=== PATIENT | female | born 1970 | race Hispanic/Latino ===

== ENCOUNTER 2025-03-11 20:41 | Inpatient (IN) | payer BC, SELFPAY ==
[~2025-03-11] VITALS: Ht 165.1 cm; Wt 98.4 kg
[2025-03-11 21:57] LABS: BASOPHILS # (AUTO) 0.03 K/uL (0.00-0.20); BASOPHILS % (AUTO) 0.2 % (0.0-5.0); HEMATOCRIT 43.6 % (36-48); IMMATURE GRANULOCYTE ABSOLUTE 0.08 K/uL (0-1); LYMPHOCYTES # (AUTO) 0.7 K/uL (1.0-4.8); LYMPHOCYTES % (AUTO) 4.3 % (21.0-51.0); MEAN CORPUSCULAR HEMOGLOBIN 29.3 pg (27.0-33.0); MEAN CORPUSCULAR HGB CONC 34.9 g/dL (32.0-36.0); MONOCYTES # (AUTO) 0.6 K/uL (0.1-1.0); MONOCYTES % (AUTO) 3.9 % (3.0-13.0); NEUTROPHILS # (AUTO) 14.7 K/uL (1.8-7.7); NEUTROPHILS % (AUTO) 91.1 % (40.0-77.0); PLATELET COUNT (AUTO) 323 K/uL (130-400); RED BLOOD CELL COUNT(AUTO) 5.19 MIL/uL (4.00-5.50); RED CELL DISTRIBUTION WIDTH 13.2 % (11.0-15.5); WHITE BLOOD COUNT (AUTO) 16.1 K/uL (4.8-10.8)
[2025-03-11 22:06] LABS: APPEARANCE,URINE TURBID (CLEAR); BILIRUBIN,URINE NEGATIVE (NEGATIVE); COLOR,URINE YELLOW (YELLOW); GLUCOSE, URINE (UA) 50 mg/dL (NEGATIVE); KETONES,URINE 5 mg/dL (NEGATIVE); LEUKOCYTE ESTERASE ,URINE 500 Leu/uL (NEGATIVE); NITRATE,URINE NEGATIVE (NEGATIVE); OCCULT BLOOD,URINE LARGE (NEGATIVE); PH,URINE 5.5 (5.0-8.0); PROTEIN,URINE 100 mg/dL (NEGATIVE)
[2025-03-11 22:08] LABS: ADD UA MICROSCOPIC YES
[2025-03-11 22:10] LABS: HCG,QUALITATIVE URINE NEGATIVE (NEGATIVE); MUCUS,URINE RARE LPF (None Seen); NON-SQUAMOUS EPITHELIAL CELL 1 /HPF (0-2); RBC,URINE 51-100 /HPF (0-1); SQUAMOUS EPITHELIAL CELL,UR MOD /HPF (0-2); WBC CLUMP MANY /HPF (0-1); WBC,URINE TNTC /HPF (0-1); YEAST,URINE BUDDING FEW /HPF (None Seen)
[2025-03-11 22:13] LABS: BILIRUBIN,TOTAL 0.8 mg/dL (0.2-1.0); TOTAL PROTEIN, SERUM 6.7 g/dL (6.0-8.3)
[2025-03-11 22:14] LABS: AMPHET/METH SCREEN,URINE NEGATIVE (NEGATIVE); BARBITURATE SCREEN, URINE NEGATIVE (NEGATIVE); BENZODIAZEPINES SCREEN,URINE NEGATIVE (NEGATIVE); CANNABINOID SCREEN,URINE NEGATIVE (NEGATIVE); COCAINE SCREEN,URINE NEGATIVE (NEGATIVE); OPIATE SCREEN,URINE NEGATIVE (NEGATIVE); PHENCYCLIDINE SCREEN,URINE NEGATIVE (NEGATIVE)
[2025-03-11 22:15] LABS: AMMONIA < 10 umol/L (11-32); CREATINE KINASE, TOTAL 129 U/L (21-232)
[2025-03-11 22:25] LABS: ABG BASE EXCESS 4.7 mmol/L (-2.0-3.0); ABG HCO3 28.8 mmol/L (21.0-28.0); ABG OXYGEN SATURATION 94.5 % (94.0-98.0); ABG PCO2 41 mmHg (32-45); ABG PH 7.466 (7.350-7.450); DEVICE COMMENT LR RN; VENT MODE, BG 4LNC (ROOM AIR)
[2025-03-11] MEDS: 0.9%NACL 1000ML 1,000 ML IV ONE (22:25)
[2025-03-11] MEDS: ondanSETRON 4MG INJ IVP ONE (22:25)
[2025-03-11] MEDS: cefTRIAXone 1G VIAL IVPB ONE (22:26)
[2025-03-11 22:28] LABS: ALCOHOL, BLOOD < 3 mg/dL (0-10)
--- NOTE | 2025-03-11 22:30 | NUR ---
STEMI ACTIVATED @2213, PENDING MIDLEVEL AND MD ORDERS
--- NOTE | 2025-03-11 22:30 | NUR ---
ER PHYSICIAN HAS SPOKEN TO DR CARLTON, SOLID WASTE COLLECTION WORKER ACTIVATED, PENDING ORDERS FOR MEDS
[2025-03-11 22:32] LABS: POTASSIUM 2.4 mmol/L (3.5-5.1)
[2025-03-11] MEDS: ASPIRIN 325MG TAB PO ONE (22:34)
--- NOTE | 2025-03-11 22:36 | NUR ---
DR. GOMEZ AT BEDSIDE
--- NOTE | 2025-03-11 22:39 | NUR ---
VERBAL ORDERS BY DR GOMEZ FOR HEPARIN 10,000 UNITS IV PUSH
[2025-03-11] MEDS: HEParin 5,000 UNIT VIAL ONE (22:43)
[2025-03-11 22:49] LABS: COVID19 (SARS ANTIGEN RAPID) PRESUMPTIVE NEGATIVE (NEGATIVE); INFLUENZA TYPE A Negative For Type A (NEGATIVE); INFLUENZA TYPE B Negative For Type B (NEGATIVE)
--- NOTE | 2025-03-11 22:49 | CONS ---
[facility] Cardiology Consultation Note CARDIOLOGY CONSULTATION MARCH 11, 2025 Chief complaint: This is a 54-year-old female who presents with lower abdominal pain and chest pains and is found to have evidence for an anterior ST-elevation NV on her EKG with1 mm ST-elevation in V5 V6 with reciprocal ST depressions in the inferior leads. Onset earlier this evening. History of present illness: The patient has been having some intermittent chest pains over the past two weeks. She did not seek any medical attention for this until this evening when she developed a lower abdominal pain and decided to come to the emergency room. Electrocardiogram as described above troponin pending. Past medical history: She has a history of hypertension and diabetes mellitus type 2. Review of systems: No syncope PND orthopnea palpitations or pedal edema. No fevers sweats or chills. No hemoptysis hematemesis or melena. Allergies: No known allergies Medications: She takes metformin and lisinopril Surgical history: Social history: She is a smoker quit one year ago Family history: Mother and brother both have hypertension Physical exam: Blood pressure is 170/90 heart rate is 110 and the patient is afebrile prior but did have a fever of 99.0 on admission. There was no elevation of the jugular venous pressure no bruits S1 normal S2 physiologically split. No murmur appreciable. Lungs reveal bibasilar rales. Abdomen is obese soft and nontender. Extremities show no edema. Dorsalis pedis pulses are 2+ bilaterally. Posterior tibial pulses plus one bilaterally. Laboratory studies: White count 28712 hemoglobin platelet count [id number]. Potassium 2.4 BUN 19 creatinine 2.0 estimated GFR of 30. Initial form of 49. Chest x-ray: This demonstrates bilateral pulmonary infiltrates consistent with CHF. There was no pneumothorax. Heart size is obscured. Her inspiratory effort. Assessment: 1. Acute anterior wall ST-elevation myocardial infarction complicated by acute heart failure 2. Lower abdominal pain 3. Acute kidney injury with a creatinine of 2.0 and estimated GFR of 30 3. Hypokalemia 4. Hypertension 5. Diabetes mellitus type 6. Low-grade fever and leukocytosis Plan: I have discussed findings with the patient and family. Given evidence for an ST elevation NV have recommended emergent left heart catheterization. Potential nephrotoxicity in the setting of acute kidney injury has been reviewed. We will administer potassium both orally and IV. We are a dministering heparin [id number] units she weighs about 220 lb. [id number] has been given and STEMI code has been activated. LC GOMEZ MD Mar 11, 2025 22:49
[2025-03-11] MEDS: PoTASSium chloRIDE 20MEQ/100ML 100 ML IV ONE ×2 (22:50→23:13)
[2025-03-11] MEDS: PoTASSium chloRIDE 20MEQ ER 20 MEQ ERTAB PO ONE ×2 (22:50→23:14)
[2025-03-11] MEDS ORDERED: LIDOCAINE HCL 400MG/20ML VIAL ONE (22:52)
[2025-03-11] MEDS ORDERED: IOHEXOL 350 MG/ML 100ML INFUS..BTL IV ONE (22:52)
[2025-03-11] MEDS ORDERED: HEParin-NS 1,000 UNIT/500 ML 1,000 ML IV ONE (22:52)
[2025-03-11] MEDS ORDERED: HEParin 10,000 UNIT/10ML (1,000 UNIT/ML) VIAL ONE (22:52)
[2025-03-11] MEDS: HEParin 5,000 UNIT VIAL IV ONE (22:53)
[2025-03-11] MEDS ORDERED: HEParin 1,000 UNIT VIAL IVP SCH (23:00)
[2025-03-11] MEDS ORDERED: PoTASSium chloRIDE 10MEQ/100ML 100 ML IV ONE (23:00)
[2025-03-11 23:02] LABS: INR 1.25 (0.85-1.15)
--- NOTE | 2025-03-11 23:03 | NUR ---
REPORT GIVEN TO JOSHUA ENRIQUE FROM RADIOLOGIC TECH
[2025-03-11 23:04] LABS: PARTIAL THROMBOPLASTIN TIME 21.7 SEC (26.3-35.5)
--- NOTE | 2025-03-11 23:04 | NUR ---
PATIENT LEAVING WITH DECISION ANALYST TEAM AT THIS TIME
[2025-03-11] MEDS ORDERED: FENTanyl CITRate PF 50 MCG/1 ML 2ML VIAL ONE (23:11)
[2025-03-11] MEDS ORDERED: MIDAZOLAM HCL 1 MG/ML 2ML VIAL ONE (23:11)
[2025-03-11] MEDS ORDERED: hydrALAZine 20MG/ML VIAL ONE (23:25)
--- NOTE | 2025-03-11 23:47 | CONS ---
[facility] Cardiology Consultation Note This patient presented with abdominal pain and acute congestive heart failure. Electrocardiogram [address]-elevation in V5 V6 with ST depressions inferior ly consistent with a STEMI. She received aspirin and heparin. She also received potassium for hypokalemia and furosemide. After informed consent she was brought emergently to the catheterization laboratory. She was prepped and draped in the usual fashion. She received 2 mg of Versed for conscious sedation. She received 15 cc of 2% xylocaine in the right inguinal area. A six Nauruan sheath was introduced in the right femoral artery using modified Seldinger technique. A Rodolfo four left six Nauruan diagnostic catheter was advanced over guidewire to the aortic root. Wire was removed. The catheter could not be engaged into the left main coronary artery and the catheter was removed. A Rodolfo 3.56 Nauruan diagnostic catheter was then advanced over guidewire to the aortic root. Wire was removed and catheter engaged into the left main coronary artery. The left coronary artery was visualized multiple planes the catheter was removed. A Rodolfo four right six Nauruan diagnostic catheter was advanced over guidewire to the aortic root. Wire was removed and catheter engaged into the [place] right coronary artery. The right coronary art jordan was visualized multiple planes the catheter was removed. A sheathogram performed and Perclose device utilized to close the arteriotomy. The entire procedure was well tolerated. Findings: The right coronary artery is a right-dominant vessel free of obstruction gives rise to normal PDA and posterolateral branches. The left main coronary artery is free of obstruction. The left anterior descending artery is patent and free of obstruction but tapers to a 1 mm vessel towards the apex. First diagonal artery is free of obstruction. Circumflex system is free of obstruction and gives rise to two large obtuse marginal branching vessels which are free of obstruction. In summary normal coronary arteries no evidence for ST-elevation AL. Report dictated by Yoan GOMEZ,YOAN Ocampo MD Mar 11, 2025 23:47
[2025-03-12] VITALS (67 sets, daily range): BP systolic 79–175; BP diastolic 45–116; PULSE 64–121; RESP 14–38; TEMP 98.1–99.1; O2SAT 93–99
[2025-03-12] MEDS ORDERED: PoTASSium chl 10% ELIXIR 20MEQ 20 MEQ/15 ML UDCUP PO PRN
[2025-03-12] MEDS ORDERED: PoTASSium chloRIDE 20MEQ ER 20 MEQ ERTAB PO PRN
[2025-03-12] MEDS ORDERED: furoSEMIDE 40MG VIAL IV SCH
[2025-03-12] MEDS ORDERED: PoTASSium chloRIDE 10MEQ/100ML 100 ML IV PRN
--- NOTE | 2025-03-12 00:05 | HP ---
B[facility] HISTORY AND PHYSICAL Date of Service: Mar 12, 2025 Time of Service: 00:05 HISTORY OF PRESENT ILLNESS: This is a 54-year-old female with past medical history of hypertension, diabetes, depression and bipolar who presents to the ED for complaints of lower abdominal pain associated nausea ,vomiting, generalized body weakness and shortness of breaths which started three days ago.Patient also reports she fell a week ago and she was on her abdomen at the laundry mat and did not seek medical help and 2 days ago she fell again towards her left side hitting her left side face and left flank area due to body weakness.2 days ago patient star carlos complaining of left sided body pain,dizziness and started being confused and having slurry speech as per friend who was at bedside during my evaluation.Friend says she lives with patient.As per friend patient has been seen by a classifier operator in [place] Dr. Ramon Jimenez and an echocardiogram and a 24 hour holter monitor was done because patient has also been having on and off chest pain for 2 months now she said.Upon ER arrival an EKG was done and showed an ST elevation on V5 and V6 and ST depressions on Lead 2 3 and AVF consistent with STEMI and code STEMI was activated per ER and patient was taken to denture laboratory technician for a left heart catheterization per and findings revealed normal coronary arteries and no evidence of ST elevation UT and patient was transferred to ICU. Seen and examined patient in the ER awake,alert and coherent,with occasional forgetfulness.Patient moving all extremities equally and following commands. Latest vital signs temperature 97.3, heart rate 112, respiration 34, blood pres sure 144/95 saturation 96% on 6 L nasal cannula. Labs: WBC 16 with negative left shift of neutrophils 91, hemoglobin 15, hematocrit 43, platelet count 323 . Sodium 132, potassium 2.4, chloride 93, BUN 19, creatinine 2, GFR 30 glucose 165, total calcium 19, magnesium 1.2, AST 52 ammonia less than 10, troponin 49, BNP 28, albumin three, amylase 253, lipase 480. Urine toxicology negative serum alcohol less than three. Urinalysis consistent with urinary tract infection. ABG result revealed pH 7.46, CO2 41, PO2 68, bicarb 28 .8, base excess 4.7 taken at 4 L nasal cannula. Influenza type a and B negative SARs COVID negative. Chest x-ray, cervical CT spine, CT head, and chest CT chest abdomen and pelvis result still pending at this time. As per Dr. English classifier operator patient was given IV fluids and Lasix. While in the ER patient received aspirin 325 mg and heparin. We will admit patient in ICU for further medical management. REVIEW OF SYSTEMS CONSTITUTIONAL: Denies fevers, chills, or night sweats. No unintentional weight loss reported. NEUROLOGICAL: Positive generalized body weakness and dizziness Denies headache, amaurosis fugax, sensory deficit, gait abnormalities, or tremors. ENT: No hearing loss, otalgia, otorrhea, rhinitis, rhinorrhea, hoarseness, or sore throat. CARDIOVASCULAR: Complaints of chest pain and shortness of breaths Denies orthopnea, paroxysmal nocturnal dyspnea, palpitations, life-threatening arrhythmias, claudication. PULMONARY: Complaints of shortness of breaths Denies cough, phlegm/sputum, hemoptysis, pleuritic chest pain. SLEEP: Denies morning headaches, daytime somnolence or napping. Denies difficulty falling asleep, staying asleep, waking from sleep. Denies knowledge of snoring. GASTROINTESTINAL: Complaints of lower abdominal pain nausea vomiting Denies any type of dysphagia to either liquids or solids. Denies pyrosis, early satiety, diarrhea, constipation, or changes in stool consistency or caliber. Denies coffee-ground emesis, hematemesis, hematochezia, or melanotic stools. GENITOURINARY: Denies frequency, urgency, nocturia, hematuria or incontinence (Storage/Irritative symptoms.) Low urinary stream, straining to void, urinary intermittency or hesitancy, splitting of the voiding stream, terminal dribbling. ENDOCRINOLOGIC: Denies polyuria, polydipsia, polyphagia or heat/cold intolerances. HEMATOLOGIC: Denies thrombophilia/previous clots, or coagulopathy/bleeding disorders. ONCOLOGIC: Denies personal history of malignancy. DERMATOLOGIC: Denies rashes or pruritus. PSYCHIATRIC: Denies any suicidal or homicidal ideation. Denies hallucinations. PAST MEDICAL HISTORY: [ Hypertension, diabetes, depression and bipolar ] PAST SURGICAL HISTORY: [ x4 ] PAST SOCIAL HISTORY: [Patient lives with friend. Patient denies alcohol tobacco and recreational drug use states she used to smoke occasionally but quit a year ago ] FAMILY HISTORY: [Noncontributory ] Coded Allergies: No Known Drug Allergies (Verified Allergy, 04/06/13) PHYSICAL EXAM GENERAL APPEARANCE: The patient is awake, alert, and oriented, in no acute cardiopulmonary distress. NEUROLOGICAL: Cranial nerves II-XII grossly intact. Motor is 5/5 in bilateral upper and lower extremities proximal to distal. No sensory deficits. HEENT: Face is symmetric. Pupils are equal and reactive. Extraocular movements are intact. NECK: Supple. No JVD. No thyromegaly. No submental, submandibular, pre- /postauricular, occipital or supraclavicular lymphadenopathy. CHEST: Normal chest expansion. No Telemetry. LUNGS: Absence of any rales, rhonchi or any wheezing. CARDIOVASCULAR: Regular. S1 and S2 normal. No appreciable rubs, murmurs or gallops. ABDOMEN: Abdominal tenderness located around lower abdominal quadrant on palpation Soft and nondistended. There is no rebound, voluntary guarding, or rigidity. : Deferred. No Ortega. EXTREMITIES: Non-edematous and not cyanotic. No clubbing. Good capillary refill. SKIN: No skin breakdown. Vital Sign (Last 24 Hours) 03/11/25 22:54 Temp 97.3 Pulse 112 Resp 34 B/P (MAP) 144/95 Pulse Ox 96 O2 Delivery N/C Oxymizer Hi LPM* O2 Flow Rate 6 FiO2 44 LABS: Laboratory: Test 03/11/25 22:23 03/11/25 22:20 03/11/25 22:05 03/11/25 21:59 Range/Units Blood Gas Specimen Type Arterial Arterial Blood pH 7.466 H 7.350-7.450 Arterial Blood Partial Pressure CO2 41 32-45 mmHg Arterial Blood Partial Pressure O2 68.0 L 83.0-108.0 mmHg Arterial Blood HCO3 28.8 H 21.0-28.0 mmol/L Arterial Blood Oxygen Saturation 94.5 94.0-98.0 % Arterial Blood Base Excess 4.7 H -2.0-3.0 mmol/L Blood Gas Temperature 37.0 35.5-37.0 CELSIUS Blood Gas Flow-by 4.00 0.00-15.00 L/min Blood Gas Vent Mode 4LNC ROOM AIR FiO2 36.0 % Blood Gas Specimen Comment LR RN Influenza Type A Antigen Negative For Type A NEGATIVE Influenza Type B Antigen Negative For Type B NEGATIVE SARS-CoV-2 Antigen (Rapid) PRESUMPTIVE NEGATIVE NEGATIVE Lactic Acid Level 4.6 H 0.8-2.5 mmol/L Whole Blood Glucose 170 H 70-110 MG/DL Urine Color YELLOW YELLOW Urine Appearance TURBID CLEAR Urine pH 5.5 5.0-8.0 Urine Specific [place] 1.020 1.001-1.031 Urine Protein 100 H NEGATIVE mg/dL Urine Glucose (UA) 50 H NEGATIVE mg/dL Urine Ketones 5 H NEGATIVE mg/dL Urine Occult Blood LARGE H NEGATIVE Urine Nitrate NEGATIVE NEGATIVE Urine Bilirubin NEGATIVE NEGATIVE mg/dL Urine Urobilinogen 2.0 H 0.2-1.0 mg/dL Urine Leukocyte Esterase 500 H NEGATIVE Jaimie/uL Urine RBC 51-100 H 0-1 /HPF Urine WBC TNTC H 0-1 /HPF Urine WBC Clumps (Auto) MANY 0-1 /HPF Urine Squamous Epithelial Cells MOD 0-2 /HPF Urine Non-Squamous Epithelial Cells 1 0-2 /HPF Urine Bacteria None None Seen /HPF Urine Yeast FEW None Seen /HPF Urine HCG, Qualitative NEGATIVE NEGATIVE Urine Opiates Screen NEGATIVE NEGATIVE Urine Barbiturates Screen NEGATIVE NEGATIVE Urine Phencyclidine Screen NEGATIVE NEGATIVE Urine Amphetamines Screen NEGATIVE NEGATIVE Urine Benzodiazepines Screen NEGATIVE NEGATIVE Urine Cocaine Screen NEGATIVE NEGATIVE Urine Marijuana (THC) Screen NEGATIVE NEGATIVE Test 03/11/25 21:47 Range/Units White Blood Count 16.1 H 4.8-10.8 K/uL Red Blood Count 5.19 4.00-5.50 MIL/uL Hemoglobin 15.2 12.0-16.0 g/dL Hematocrit 43.6 36-48 % Mean Corpuscular Volume 84.0 79-99 fL Mean Corpuscular Hemoglobin 29.3 27.0-33.0 pg Mean Corpuscular Hemoglobin Concent 34.9 32.0-36.0 g/dL Red Cell Distribution Width 13.2 11.0-15.5 % Platelet Count 323 130-400 K/uL Mean Platelet Volume 10.1 7.5-10.5 fL Immature Granulocyte % (Auto) 0.5 0-1 % Neutrophils (%) (Auto) 91.1 H 40.0-77.0 % Lymphocytes (%) (Auto) 4.3 L 21.0-51.0 % Monocytes (%) (Auto) 3.9 3.0-13.0 % Eosinophils (%) (Auto) 0.0 0.0-8.0 % Basophils (%) (Auto) 0.2 0.0-5.0 % Neutrophils # (Auto) 14.7 H 1.8-7.7 K/uL Lymphocytes # (Auto) 0.7 L 1.0-4.8 K/uL Monocytes # (Auto) 0.6 0.1-1.0 K/uL Eosinophils # (Auto) 0.00 0.00-0.70 K/uL Basophils # (Auto) 0.03 0.00-0.20 K/uL Absolute Immature Granulocyte (auto 0.08 0-1 K/uL Nucleated Red Blood Cells 0.0 0.0-0.19 % White Cell Morphology Comment See comments Prothrombin Time 13.0 H 9.6-11.6 SEC Prothromb Time International Ratio 1.25 H 0.85-1.15 Activated Partial Thromboplast Time 21.7 L 26.3-35.5 SEC Sodium Level 132 L 136-145 mmol/L Potassium Level 2.4 *L 3.5-5.1 mmol/L Chloride Level 93 L 101-111 mmol/L Carbon Dioxide Level 31 21-32 mmol/L Blood Urea Nitrogen 19 H 7-18 mg/dL Creatinine 2.0 H 0.5-1.0 mg/dL Glomerular Filtration Rate Calc 30 >90 mL/min Random Glucose 165 H 70-105 mg/dL Total Calcium 19.6 *H 8.5-10.1 mg/dL Magnesium Level 1.20 L 1.80-2.40 mg/dL Total Bilirubin 0.8 0.2-1.0 mg/dL Aspartate Amino Transf (AST/SGOT) 52 H 10-37 U/L Alanine Aminotransferase (ALT/SGPT) 30 12-78 U/L Alkaline Phosphatase 113 50-136 U/L Ammonia < 10 L 11-32 umol/L Total Creatine Kinase 129 21-232 U/L Troponin I High Sensitivity 49 4-50 ng/L B-Type Natriuretic Peptide 28 0-100 pg/mL Total Protein 6.7 6.0-8.3 g/dL Albumin 3.0 L 3.5-5.0 g/dL Amylase Level 253 H 25-115 U/L Lipase 480 H 16-77 U/L Serum Alcohol < 3 0-10 mg/dL Current Medications Medications (Trade) Dose Ordered Sig/Leni Route PRN Reason Start Time Stop Time Status Last Admin Dose Admin Dextrose (D50w) 50 ml AD PRN IV HYPOGLYCEMIA PROTOCOL 03/12/25 00:00 04/11/25 00:00 Furosemide (LASix 40MG VIAL) 40 mg Q12H IV 03/12/25 00:00 04/11/25 00:00 Glucagon (Glucagon 1mg Kit) 1 mg AD PRN IM HYPOGLYCEMIA PROTOCOL 03/12/25 00:00 04/11/25 00:00 Heparin Sodium (Porcine) (HEParin 1,000 UNIT VIAL) 10,000 unit ONCE IVP 03/11/25 23:00 03/11/25 22:45 DC Magnesium Sulfate 50 ml @ 0 mls/hr PROTOCOL IV 03/11/25 23:00 04/10/25 22:59 Potassium Chloride 100 ml @ 100 mls/hr AD PRN IV POTASSIUM PROTOCOL 03/12/25 00:00 04/11/25 00:00 Potassium Chloride (K-Dur/Klor-Con 20meq) 10 meq AD PRN PO POTASSIUM PROTOCOL 03/12/25 00:00 04/11/25 00:00 Potassium Chloride (KCl 10% Elixir 20meq/15ml) 10 meq AD PRN PO POTASSIUM PROTOCOL 03/12/25 00:00 04/11/25 00:00 DIAGNOSTICS / RADIOLOGY: [ ] ASSESSMENT: STEMI s/p cardiac cath (normal coronaries no evidence of STEMI ) POA Acute hypoxemic respiratory failure with pulmonary edema POA Acute CHF POA Severe hypokalemia POA Hyponatremia POA Acute kidney injury POA Severe hypercalcemia POA Severe hypomagnesemia POA Protein calorie malnutrition POA Possible pancreatitis POA Uncontrolled diabetes POA Hypertension POA Obesity POA Sepsis POA Acute complicated urinary tract infection POA Acute metabolic encephalopathy multifactorial POA Status post fall x2 at home POA PLAN: We will admit patient in ICU We will keep patient nothing by mouth We will start patient on Zosyn IV and vancomycin IV for broad-spectrum coverage We will start on Famotidine 20 mg daily for GI prophylaxis We will replace electrolytes as needed per protocol We will start on insulin sliding scale AC & HS with hypoglycemia protocol We will add prn medication for fever,pain,cough , nausea and vomiting We will reconcile home meds once medlist available We will seek critical care consultation Cardiology on consultation and appreciate recommendation We will request labs in am and follow up CT results Further orders to follow depending on above results Case discussed with attending physician and came up with above treatment and plan of care. ADVANCED CARE PLANNING 1. Which of the following were discussed? Hospice Care - No Therapeutic options - Yes Advance Directives - No Other discussions - 2. Discussed with who? Patient 3. Voluntary nature of this service was explained to the patient? Yes 4. Amount of time spent - __27 5. Reviewed by Physician? (if this service was performed by NPP) Yes Patient seen and examined by me. Agree with note by WASTE HANDLING TECHNICIAN SEE ADDITIONAL ORDERS PER CHART DISCUSSED WITH NURSING STAFF DANIELLE VALENZUELAP Mar 12, 2025 00:05
[2025-03-12] MEDS ORDERED: ondanSETRON 4MG INJ IV PRN (00:30)
[2025-03-12] MEDS ORDERED: GLUCAGON 1MG KIT 1 MG ML IM PRN ×2 (00:30)
[2025-03-12] MEDS ORDERED: DEXTROSE 50%-WATER 50 ML DISP.SYRIN IV PRN ×2 (00:30)
[2025-03-12] MEDS ORDERED: MAGNESIUM 2GM PREMIX 50ML 50 ML IV PRN (00:30)
--- NOTE | 2025-03-12 01:08 | ERN ---
ED Note History of Present Illness Stated Complaint: JONAS, ACUTE CHF, SEVERE HYPOKALEMIA AND SEVERE HYPE Chief Complaint: Abdominal Pain Time Seen by MD: 20:46 Time Seen by Midlevel: 20:46 Dictation: The patient is a 54-year-old female with a history of hypertension, diabetes on metformin, depression who presents to the emergency department with a friend with complaints of lower abdominal pain associated with nausea, nonbloody vomiting, weakness, shortness of breath onset three days ago. Friend also rep orts that patient has been having multiple falls the last one happened two days ago. Patient reports that falls are due weakness. Reports she fell to her left side and hit the left side of her head. Denies any LOC, denies any use of blood thinners. Patient denies any other injuries from the fall. Patient denies any fevers, diarrhea or constipation. Denies chest pain Friend also reported patient seemed a little confused but patient is answering questions appropriately. Allergies: Coded Allergies: No Known Drug Allergies (Verified Allergy, 04/06/13) Past Medical History Past Medical History: Anemia, Depression, Diabetes-Type II Surgical History: LMP: February 14, 2025 RN Note Reviewed/Agreed w/PFSH: Yes Review of System Dictation Constitutional: Negative for fever,chills, and weight loss Eyes: Negative for injury, pain,redness, and discharge ENT: Negative for injury,pain or swelling Cardiovascular: Negative for chest pain, palpitations, and edema Respiratory: Negative for cough, and wheezing, positive for shortness of breath Abdomen/GI: Negative for diarrhea, and constipation positive for abdominal pain, nausea, vomiting Back: Negative for injury and pain : Negative for injury, bleeding and discharge MS/Extremity: Negative for injury and deformity Skin: Negative for rash, and discoloration Neuro: Negative for headache, numbness, tingling, and seizure positive for weakness Psych: Negative for suicide ideation, homicidal ideation, and hallucinations Initial Vital Sign VS Vital Signs Date Time Temp Pulse Resp B/P (MAP) Pulse Ox O2 Delivery O2 Flow Rate FiO2 03/11/25 21:22 99.0 116 18 178/107 93 Room Air 0 03/11/25 22:01 21 Physical Exam Dictation Vital Signs reviewed General Appearance: Alert, oriented x 3, appears confused, mildly distress, well developed, nourished. Head and Face: Small contusion to left temporal Eyes: PERRL, pink conjunctivas, eyelid no trauma, anterior chamber with arcus senilis. Ears: Pinnas intact and no signs of trauma or erythema ear canals clear and no discharge TM no erythema Nose: No discharge, no bleeding. Oropharynx: Mouth normal, tongue pink. pharynx clear,no erythema, tonsils no exudates, no abscesses noted, mucous membrane moist Neck: Supple, non-tender, no thyromegaly, no masses, no JVD, no bruits Breast:Deferred Chest:No tenderness, no crepitus, no paradoxical movement, no retractions Lungs:Clear, well-ventilated, symmetric, no rales, no wheezing, no rhonchi, no stridor, good breath diminished bilaterally Heart: Regular rate, regular rhythm, no murmur, no gallops Vascular: no peripheral edema, Abdomen: Firm, positive bowel sounds, nondistended, no guarding, nontender, no rebound, no masses no hepatomegaly, no splenomegaly, no Sánchez's sign, no hernias. Rectal: Deferred Genital: Deferred Neurological: Normal speech, motor function intact, sensory function intact , upper extremities equal and strength, lower extremities equal and strength Musculoskeletal: Neck nontender, full range of motion, back nontender, full range of motion, Extremities: nontender, full range of motion Skin: Color pink, dry, no turgor, no rash, no lacerations, no abrasions, no contusions. Lymphatic: Deferred Results (Laboratory/Radiology) Laboratory/Radiology Laboratory Tests Test 03/11/25 21:47 03/11/25 21:59 03/11/25 22:05 03/11/25 22:20 White Blood Count 16.1 K/uL (4.8-10.8) H Red Blood Count 5.19 MIL/uL (4.00-5.50) Hemoglobin 15.2 g/dL (12.0-16.0) Hematocrit 43.6 % (36-48) Mean Corpuscular Volume 84.0 fL (79-99) Mean Corpuscular Hemoglobin 29.3 pg (27.0-33.0) Mean Corpuscular Hemoglobin Concent 34.9 g/dL (32.0-36.0) Red Cell Distribution Width 13.2 % (11.0-15.5) Platelet Count 323 K/uL (130-400) Mean Platelet Volume 10.1 fL (7.5-10.5) Immature Granulocyte % (Auto) 0.5 % (0-1) Neutrophils (%) (Auto) 91.1 % (40.0-77.0) H Lymphocytes (%) (Auto) 4.3 % (21.0-51.0) L Monocytes (%) (Auto) 3.9 % (3.0-13.0) Eosinophils (%) (Auto) 0.0 % (0.0-8.0) Basophils (%) (Auto) 0.2 % (0.0-5.0) Neutrophils # (Auto) 14.7 K/uL (1.8-7.7) H Lymphocytes # (Auto) 0.7 K/uL (1.0-4.8) L Monocytes # (Auto) 0.6 K/uL (0.1-1.0) Eosinophils # (Auto) 0.00 K/uL (0.00-0.70) Basophils # (Auto) 0.03 K/uL (0.00-0.20) Absolute Immature Granulocyte (auto 0.08 K/uL (0-1) Nucleated Red Blood Cells 0.0 % (0.0-0.19) White Cell Morphology Comment See comments Prothrombin Time 13.0 SEC (9.6-11.6) H Prothromb Time International Ratio 1.25 (0.85-1.15) H Activated Partial Thromboplast Time 21.7 SEC (26.3-35.5) L Sodium Level 132 mmol/L (136-145) L Potassium Level 2.4 mmol/L (3.5-5.1) *L Chloride Level 93 mmol/L (101-111) L Carbon Dioxide Level 31 mmol/L (21-32) Blood Urea Nitrogen 19 mg/dL (7-18) H Creatinine 2.0 mg/dL (0.5-1.0) H Glomerular Filtration Rate Calc 30 mL/min (>90) Random Glucose 165 mg/dL (70-105) H Total Calcium 19.6 mg/dL (8.5-10.1) *H Magnesium Level 1.20 mg/dL (1.80-2.40) L Total Bilirubin 0.8 mg/dL (0.2-1.0) Aspartate Amino Transf (AST/SGOT) 52 U/L (10-37) H Alanine Aminotransferase (ALT/SGPT) 30 U/L (12-78) Alkaline Phosphatase 113 U/L (50-136) Ammonia < 10 umol/L (11-32) L Total Creatine Kinase 129 U/L (21-232) Troponin I High Sensitivity 49 ng/L (4-50) B-Type Natriuretic Peptide 28 pg/mL (0-100) Total Protein 6.7 g/dL (6.0-8.3) Albumin 3.0 g/dL (3.5-5.0) L Amylase Level 253 U/L (25-115) H Lipase 480 U/L (16-77) H Serum Alcohol < 3 mg/dL (0-10) Urine Color YELLOW (YELLOW) Urine Appearance TURBID (CLEAR) Urine pH 5.5 (5.0-8.0) Urine Specific [place] 1.020 (1.001-1.031) Urine Protein 100 mg/dL (NEGATIVE) H Urine Glucose (UA) 50 mg/dL (NEGATIVE) H Urine Ketones 5 mg/dL (NEGATIVE) H Urine Occult Blood LARGE (NEGATIVE) H Urine Nitrate NEGATIVE (NEGATIVE) Urine Bilirubin NEGATIVE mg/dL (NEGATIVE) Urine Urobilinogen 2.0 mg/dL (0.2-1.0) H Urine Leukocyte Esterase 500 Jaimie/uL (NEGATIVE) H Urine RBC 51-100 /HPF (0-1) H Urine WBC TNTC /HPF (0-1) H Urine WBC Clumps (Auto) MANY /HPF (0-1) Urine Squamous Epithelial Cells MOD /HPF (0-2) Urine Non-Squamous Epithelial Cells 1 /HPF (0-2) Urine Bacteria None /HPF (None Seen) Urine Yeast FEW /HPF (None Seen) Urine HCG, Qualitative NEGATIVE (NEGATIVE) Urine Opiates Screen NEGATIVE (NEGATIVE) Urine Barbiturates Screen NEGATIVE (NEGATIVE) Urine Phencyclidine Screen NEGATIVE (NEGATIVE) Urine Amphetamines Screen NEGATIVE (NEGATIVE) Urine Benzodiazepines Screen NEGATIVE (NEGATIVE) Urine Cocaine Screen NEGATIVE (NEGATIVE) Urine Marijuana (THC) Screen NEGATIVE (NEGATIVE) Whole Blood Glucose 170 MG/DL (70-110) H Lactic Acid Level 4.6 mmol/L (0.8-2.5) H Test 03/11/25 22:23 03/12/25 01:23 Blood Gas Specimen Type Arterial Arterial Blood pH 7.466 (7.350-7.450) Arterial Blood Partial Pressure CO2 41 mmHg (32-45) Arterial Blood Partial Pressure O2 68.0 mmHg (83.0-108.0) L Arterial Blood HCO3 28.8 mmol/L (21.0-28.0) H Arterial Blood Oxygen Saturation 94.5 % (94.0-98.0) Arterial Blood Base Excess 4.7 mmol/L (-2.0-3.0) H Blood Gas Temperature 37.0 CELSIUS (35.5-37.0) Blood Gas Flow-by 4.00 L/min (0.00-15.00) Blood Gas Vent Mode 4LNC (ROOM AIR) FiO2 36.0 % Blood Gas Specimen Comment LR RN Influenza Type A Antigen Negative For Type A Influenza Type B Antigen Negative For Type B SARS-CoV-2 Antigen (Rapid) PRESUMPTIVE NEGATIVE Lactic Acid Level 4.1 mmol/L (0.8-2.5) H Labs Reviewed?: Yes EKG: (+) rhythm (Sinus tachycardia, anterior lateral infarct) EKG Comment: Date:03/11/2025 Time:2207 Ventricular rate:111 WA interval:192 QRS duration:111 QT/QTc:346 EKG interpretation: Sinus tachycardia Reviewed by ED Attending STEMI Anterolateral infarct . I have reviewed the EKG for this patient and assumed care for the patient. She has an STEMI. I texted an image of the EKG to the senior java software developer on-call and he agreed. We called a STEMI alert. ED Course ED Course Orders Procedure Category Date Status Time Vital Signs Per CPOE 03/11/25 Transmitted Routine 21:28 Saline Lock Iv CPOE 03/11/25 Transmitted 21:28 Cbc With Differential LAB 03/11/25 Complete 21:28 Comprehensive LAB 03/11/25 Complete Metabolic Panel 21:28 Lipase LAB 03/11/25 Complete 21:28 Amylase LAB 03/11/25 Complete 21:28 Urinalysis Profile LAB 03/11/25 Complete 21:28 ,Urine Test LAB 03/11/25 Complete 21:28 Ammonia LAB 03/11/25 Complete 21:35 Alcohol, Blood LAB 03/11/25 Complete 21:35 Chest 1vw RAD 03/11/25 Taken 21:35 B-Type Natriuretic LAB 03/11/25 Complete Peptide 21:35 12 Lead Ekg Tracing- EKG 03/11/25 Logged Technical 21:35 0.9%Nacl 1000ml (Ns PHA 03/11/25 Complete 1000ml) 22:00 Ondansetron 4mg Inj PHA 03/11/25 Complete (Zofran 4mg Inj) 22:00 Magnesium LAB 03/11/25 Complete 21:35 Creatine Kinase, Total LAB 03/11/25 Complete 21:35 Troponin I High LAB 03/11/25 Complete Sensitivity 21:35 Bedside Glucose CPOE 03/11/25 Transmitted Fingerstick 21:44 Ct Head/Brain W/O CT 03/11/25 Logged Contrast 21:44 Ct Cervical Spine W/O CT 03/11/25 Logged Contrast 21:44 Drug Screen Urine LAB 03/11/25 Complete 21:44 Covid19 (Sars Antigen LAB 03/11/25 Complete Rapid) 22:05 Influenza Type A & B, LAB 03/11/25 Complete Rapid 22:05 Arterial Blood Gas RT 03/11/25 Transmitted 22:05 Blood Cult JOSEPH 03/11/25 In Process 22:05 Lactic Acid LAB 03/11/25 Complete 22:05 Ceftriaxone 1g Vial PHA 03/11/25 Complete (Rocephine 1g Inj) 22:30 Culture Urine JOSEPH 03/11/25 In Process 22:09 Arterial Blood Gas LAB 03/11/25 Complete 22:23 Pt And Ptt LAB 03/11/25 Complete 22:30 Aspirin 325mg Tab PHA 03/11/25 Complete (Aspirin 325mg Tab) 22:30 [employer] Procedure CATH 03/11/25 In Process Request 22:40 Heparin 5,000 Unit PHA 03/11/25 Complete Vial (Heparin 5,000 U 22:37 Heparin 1,000 Unit PHA 03/11/25 Complete Vial (Heparin 1,000 U 23:00 Heparin 5,000 Unit PHA 03/11/25 Complete Vial (Heparin 5,000 U 23:00 Magnesium 2gm Premix PHA 03/11/25 In Process 50ml (Magnesium 2gm 23:00 Potassium Chloride PHA 03/11/25 Complete 10meq/100ml ([place] 23:00 Potassium Chloride PHA 03/11/25 Complete 20meq Er (K-Dur/Klor- 23:00 Potassium Chloride PHA 03/11/25 Complete 20meq/100ml ([place] 23:00 Potassium Chloride PHA 03/11/25 Complete 20meq Er (K-Dur/Klor- 22:48 Potassium Chloride PHA 03/11/25 Complete 20meq/100ml ([place] 22:48 Lidocaine Hcl PHA 03/11/25 Complete 400mg/20ml (Lidocaine 22:52 Iohexol (Omnipaque) PHA 03/11/25 Complete 22:52 Heparin 10,000 PHA 03/11/25 Complete Unit/10ml (Heparin 22:52 Heparin-Ns 1,000 PHA 03/11/25 Complete Unit/500 Ml 22:52 Fentanyl Citrate Pf PHA 03/11/25 Complete 0.05 Mg/Ml (Fentanyl 23:11 Midazolam Hcl (Versed) PHA 03/11/25 Complete 23:11 Hydralazine 20mg Inj PHA 03/11/25 Complete (Apresoline 20mg In 23:25 Activities Post Cath CPOE 03/11/25 Transmitted 23:36 [employer] Vital Signs CPOE 03/11/25 Transmitted 23:36 Intake/Output [employer] CPOE 03/11/25 Transmitted 23:36 Physician CPOE 03/11/25 Transmitted Notification Cathlab 23:36 Admit Orders ADM 03/11/25 Transmitted 23:36 Initiate Hypoglycemia CORBY 03/11/25 In Process Protocol 23:36 Dextrose 50%-Water PHA 03/12/25 In Process (D50w) 00:00 Glucagon 1mg Kit PHA 03/12/25 In Process (Glucagon 1mg Kit) 00:00 Initiate CORBY 03/11/25 In Process Hyperglycemia Protoco 23:36 Echo 2-D Complete ECHO 03/12/25 Logged 06:00 Us Abdominal Complete US 03/12/25 Logged 06:00 Troponin I High LAB 03/12/25 In Process Sensitivity 02:38 Troponin I High LAB 03/12/25 In Process Sensitivity 05:38 Troponin I High LAB 03/12/25 Logged Sensitivity 08:38 Troponin I High LAB 03/12/25 Logged Sensitivity 11:38 Troponin I High LAB 03/12/25 Logged Sensitivity 14:38 Troponin I High LAB 03/12/25 Logged Sensitivity 17:38 Troponin I High LAB 03/12/25 Logged Sensitivity 20:38 Troponin I High LAB 03/12/25 Logged Sensitivity 23:38 12 Lead Ekg Tracing- EKG 03/12/25 Logged Technical 06:00 Furosemide 40mg Vial PHA 03/12/25 In Process (Lasix 40mg Vial) 00:00 Initiate Hypokalemia CPOE 03/11/25 Transmitted Po Half 23:38 Potassium Chloride PHA 03/12/25 In Process 10meq/100ml ([place] 00:00 Potassium Chl 10% PHA 03/12/25 In Process Elixir 20meq (Kcl 10% 00:00 Potassium Chloride PHA 03/12/25 In Process 20meq Er (K-Dur/Klor- 00:00 Notify Physician If CPOE 03/11/25 Transmitted There Is 23:38 Notify Md On The Next CPOE 03/11/25 Transmitted 23:38 Notify Md On The CPOE 03/11/25 Transmitted Next(Cont.) 23:38 Vital Signs(Adult CPOE 03/12/25 Transmitted Hospitalist) 00:04 Oxygen By Nc/Pulse Ox CPOE 03/12/25 Transmitted 00:04 Daily Weights CPOE 03/12/25 Transmitted 00:04 I&O Q Shift CPOE 03/12/25 Transmitted 00:04 Ondansetron 4mg Inj PHA 03/12/25 In Process (Zofran 4mg Inj) 00:30 Pulse Ox(Continuous) RT 03/12/25 Transmitted 00:04 Nurse To Enter Home CPOE 03/12/25 Transmitted Medication 00:04 Admit Orders ADM 03/12/25 Transmitted 00:04 Condition: CPOE 03/12/25 Transmitted 00:04 Telemetry Monitoring CPOE 03/12/25 Transmitted 00:04 Activity: Bed Rest CPOE 03/12/25 Transmitted 00:04 Nothing By Mouth DIET 03/12/25 Transmitted Breakfast Apply Scds CPOE 03/12/25 Transmitted 00:04 Famotidine 20mg Vial PHA 03/12/25 In Process (Pepcid 20mg Vial) 09:00 Critcal Care Consult CONPHYSVC 03/12/25 Transmitted 00:04 Cardiology Consult CONPHYSVC 03/12/25 Transmitted 00:04 Cbc With Differential LAB 03/12/25 Logged 04:00 B-Type Natriuretic LAB 03/12/25 Logged Peptide 04:00 Magnesium LAB 03/12/25 Logged 04:00 Lipase LAB 03/12/25 Logged 04:00 Amylase LAB 03/12/25 Logged 04:00 Thyroid Stimulating LAB 03/12/25 Logged Hormone 04:00 Parathyroid Hormone LAB 03/12/25 Logged (Intact) 04:00 Hepatic Function Panel LAB 03/12/25 Logged 04:00 Initiate Npo CORBY 03/12/25 In Process Hypokalemia Yonatan 00:04 Potassium Chloride PHA 03/12/25 In Process 20meq/100ml ([place] 00:30 Notify Physician If CPOE 03/12/25 Transmitted There Is 00:04 Notify Md On The Next CPOE 03/12/25 Transmitted 00:04 Notify Md On The CPOE 03/12/25 Transmitted Next(Cont.) 00:04 Magnesium 2gm Premix PHA 03/12/25 Complete 50ml (Magnesium 2gm 00:30 Initiate CORBY 03/12/25 In Process Hyperglycemia Protoco 00:04 Insulin Regular, PHA 03/12/25 In Process Human 3ml (Humulin R 07:30 Initiate Hypoglycemia CORBY 03/12/25 In Process Protocol 00:04 Dextrose 50%-Water PHA 03/12/25 Complete (D50w) 00:30 Glucagon 1mg Kit PHA 03/12/25 Complete (Glucagon 1mg Kit) 00:30 Comprehensive LAB 03/12/25 In Process Metabolic Panel 01:21 Ammonia LAB 03/12/25 In Process 01:21 Basic Metabolic Panel LAB 03/12/25 Logged 04:00 Lactic Acid (Removed) LAB 03/12/25 Complete 01:26 Current Medications Medications (Trade) Dose Ordered Sig/Leni Route PRN Reason Start Time Stop Time Status Last Admin Dose Admin Ondansetron HCl (zoFRAN 4MG INJ) 4 mg ONCE ONCE IVP 03/11/25 22:00 03/11/25 22:01 DC 03/11/25 22:25 Sodium Chloride 1,000 ml @ 0 mls/hr ONCE ONCE IV 03/11/25 22:00 03/11/25 22:01 DC 03/11/25 22:25 Vital Signs Date Time Temp Pulse Resp B/P (MAP) Pulse Ox O2 Delivery O2 Flow Rate FiO2 03/11/25 22:54 97.3 112 34 144/95 96 N/C Oxymizer Hi LPM* 6 44 03/11/25 22:25 114 32 153/92 96 N/C Oxymizer Hi LPM* 6 44 03/11/25 22:15 109 34 177/90 92 Nasal Cannula* 4 36 6/5/25 22:01 97.0 116 30 138/98 89 Room Air* 0 21 03/11/25 21:22 99.0 116 18 178/107 93 Room Air 0 HEART Score Response (Comments) Value History: High suspicion (+2) 2 EKG: Significant ST depression 2 Age: 45-65yrs (+1) 1 Risk Factors: 3+ risk factors (+2) 2 Initial Troponin: Normal limit (0) 0 Total 7 Medical Decision Making [facility] MDM: The patient is a 54-year-old female with a history of hypertension, diabetes on metformin, depression who presents to the emergency department with a friend with complaints of lower abdominal pain associated with nausea, nonbloody vomiting, weakness, shortness of breath onset three days ago. Friend also reports that patient has been having multiple falls the last one happened two days ago. Patient reports that falls are due weakness. Reports she fell to her left side and hit the left side of her head. Denies any LOC, denies any use of blood thinners. Patient denies any other injuries from the fall. Patient denies any fevers, diarrhea or constipation. Friend also reported patient seemed a little confused but patient is answering questions appropriately. CBC showed leukocytosis, no anemia, chemistry showed hyponatremia, hypokalemia, hypochloremia, creatinine of 2.0, GFR of 30, calcium of 19.6, lipase of 480, negative troponin, negative ammonia, hypomagnesemia, lactic acid of 4.2, urinalysis positive for leukocyte esterase. EKG showed concerning for STEMI. spoke to cardiology ergonomics consultant and decision to take patient to cathlab for STEMI. Patient did not receive sepsis fluids due to CHF, hypoxemia. Differential diagnosis: Sepsis, ACS, electrolyte imbalance, dehydration, gastroenteritis, DKA Comorbidities: Diabetes, hypertension, depression Tests considered and not ordered secondary to shared decision making include: none Previous outside records reviewed: none Risk of complication and/or morbidity or mortality of patient management: The patient meets criteria for admission. Need for emergency major/minor surgery: No There are no social concerns with this patient. I independently interpreted the tests I ordered (labs, urinalysis, etc.). I discussed the case with the hospitalist for admission. [facility] I discussed the case with the following specialists: cardiology spoke to 2017 Historian: pateint. I independently interpreted imaging studies and EKGs that I ordered (US, CT, XR, EKG, etc.). External chart review: none. Medical management and examination interpretation discussions were had by me with other qualified healthcare professionals as indicated for the patient's care. Critical Care Note Critical Time: other (38) Comment(s) Total critical care time was 38 minutes. Excluding time for procedures. Management of critically ill patient with concern for acute decompensation. Management included interpretation of laboratory values and imaging, hemodynamics, time for consultation with consultants and admitting physician. DX & DISP Disposition: Inpatient Decision to Admit Date: Mar 11, 2025 Decision to Admit Time: 23:40 Departure Impression: Primary Impression: STEMI (ST elevation myocardial infarction) Additional Impressions: Abdominal pain, JONAS (acute kidney injury), Severe sepsis, Hypokalemia, Hypercalcemia, Hypomagnesemia, Elevated lipase, UTI (urinary tract infection), Hypoxemia, Respiratory distress, CHF (congestive heart failure) Condition: Critical Referrals: HENRY UREÑA (PCP) I have examined patient, & reviewed all documents, & agreed W/ the Diagnosis, and Plan SEAN DELGADILLO Mar 12, 2025 01:08 HELENA FITZPATRICK MD Mar 12, 2025 01:34
[2025-03-12 01:46] LABS: ALBUMIN 2.6 g/dL (3.5-5.0); BILIRUBIN,TOTAL 0.7 mg/dL (0.2-1.0); CREATININE 1.9 mg/dL (0.5-1.0); TOTAL PROTEIN, SERUM 6.8 g/dL (6.0-8.3)
[2025-03-12 01:59] LABS: POTASSIUM 2.9 mmol/L (3.5-5.1)
--- NOTE | 2025-03-12 02:02 | CONS ---
[facility] CONSULTATION NOTE Date Patient Seen: Mar 12, 2025 Time of Visit: 01:44 Supervising Physician: Dr. 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 English Hypertension, POA Hypercalcemia, POA Hypokalemia, POA Hyponatremia, POA Hypomagnesemia, POA Electrolyte abnormality, POA Acute pancreatitis, POA Hyperlipidemia, POA Severe sepsis, POA Acute complicated cystitis, POA DM type 2, with hyperglycemia, poorly controlled, POA Morbid obesity, BMI of 35.8, POA PLAN: Continue ICU care NPO for now VS per unit protocol Facilitate ordered imaging Antibiotic management per primary Trend lactic acid level Complete bedrest for now Continue cardiac monitoring Replete electrolyte accordingly Facilitate 2D echo Aspiration precautions Neuro check per ICU protocol Follow up culture results Strict I&O Insert Ortega catheter Treat fever aggressively Monitor temperature curve CBC, CMP, magnesium level daily HPI: 54-year-old female with past medical history of hypertension, hyperlipidemia, DM type 2, morbid obesity who presented to ED with complaint of diffuse abdominal pain with associated confusion and found to have STEMI, acute kidney injury, acute metabolic encephalopathy, multiple electrolyte abnormality, severe sepsis, urinary tract infection, and possible acute pancreatitis. Initial EKG in ED showed possible STEMI, however his initial troponin level was normal. Interventional cardiology was consulted and patient was brought to color laboratory technician immediately for cardiac catheterization and possible PCI. Intraoperative course was uneventful, and patient did not require any stent placement or intervention. Patient was subsequently brought to ICU postprocedure for continued care. ICU consulted for critical care evaluation and management. Initial chest x-ray done in ED reviewed and showed bilateral infiltrates concerning for pulmonary [place]. [place] [address], her chemistry is significant for sodium of 132, potassium of 2.4, magnesium of 1.2, and calcium level of 19.6, BUN of 19, and creatinine level of 2.0. Her lactic acid is elevated also at 4.1, as well as lipase level of more than 400. Her COVID and flu tests were negative, however her UA showed positive for leuko esterase consistent with urinary tract infection. Patient was seen and examined in her room with partner present at bedside. According to her patient had two occasions where in she fell without reported loss of consciousness. Although the 2nd one was unwitnessed and patient reported hitting her head on the left side. And since then patient was found to be more confused and it was worse today prompting ER visit. On evaluation patient is confused, but able to follow some commands like sticking out your tongue or squeeze my finger, but can not provide any details of her medical history. At present she is Normal sinus rhythm on the monitor, on 2 L of oxygen with appropriate oxygen saturation, not in acute respiratory distress, but with diffuse abdominal pain, patient can not even tolerate even mild palpation. All information were taken from her partner and prior medical record, and ER staff report. PAST MEDICAL HX: see above PAST SURGICAL HX: noncontributory SOCIAL HISTORY: See HPI Coded Allergies: No Known Drug Allergies (Verified Allergy, 04/06/13) REVIEW OF SYSTEMS: Unable to obtain due to alteration in mental status PHYSICAL EXAM: GENERAL: Confused, but calm HEENT: EOMI, Sclera non icteric, moist mucosa NECK: Supple, no JVD, trachea midline LUNGS: Coarse bilateral lung sounds HEART: Regular rate and rhythm. Normal S1 and S2, without murmurs ABD: Very tender abdomen EXT: No clubbing cyanosis or edema NEURO: Confused Vital Signs (last 8hr) Date Time Temp Pulse Resp B/P (MAP) Pulse Ox O2 Delivery O2 Flow Rate FiO2 03/11/25 22:54 97.3 112 34 144/95 96 N/C Oxymizer Hi LPM* 6 44 03/11/25 22:25 114 32 153/92 96 N/C Oxymizer Hi LPM* 6 44 03/11/25 22:15 109 34 177/90 92 Nasal Cannula* 4 36 03/11/25 22:01 97.0 116 30 138/98 89 Room Air* 0 21 03/11/25 21:22 99.0 116 18 178/107 93 Room Air 0 LABS: Hematology Labs: Test 03/11/25 21:47 Range/Units White Blood Count 16.1 H 4.8-10.8 K/uL Red Blood Count 5.19 4.00-5.50 MIL/uL Hemoglobin 15.2 12.0-16.0 g/dL Hematocrit 43.6 36-48 % Mean Corpuscular Volume 84.0 79-99 fL Mean Corpuscular Hemoglobin 29.3 27.0-33.0 pg Mean Corpuscular Hemoglobin Concent 34.9 32.0-36.0 g/dL Red Cell Distribution Width 13.2 11.0-15.5 % Platelet Count 323 130-400 K/uL Mean Platelet Volume 10.1 7.5-10.5 fL Immature Granulocyte % (Auto) 0.5 0-1 % Neutrophils (%) (Auto) 91.1 H 40.0-77.0 % Lymphocytes (%) (Auto) 4.3 L 21.0-51.0 % Monocytes (%) (Auto) 3.9 3.0-13.0 % Eosinophils (%) (Auto) 0.0 0.0-8.0 % Basophils (%) (Auto) 0.2 0.0-5.0 % Neutrophils # (Auto) 14.7 H 1.8-7.7 K/uL Lymphocytes # (Auto) 0.7 L 1.0-4.8 K/uL Monocytes # (Auto) 0.6 0.1-1.0 K/uL Eosinophils # (Auto) 0.00 0.00-0.70 K/uL Basophils # (Auto) 0.03 0.00-0.20 K/uL Absolute Immature Granulocyte (auto 0.08 0-1 K/uL Nucleated Red Blood Cells 0.0 0.0-0.19 % White Cell Morphology Comment See comments Chemistry Labs: Test 03/12/25 01:23 03/11/25 22:05 03/11/25 21:47 Range/Units Lactic Acid Level 4.1 H 0.8-2.5 mmol/L Whole Blood Glucose 170 H 70-110 MG/DL Sodium Level 132 L 136-145 mmol/L Potassium Level 2.4 *L 3.5-5.1 mmol/L Chloride Level 93 L 101-111 mmol/L Carbon Dioxide Level 31 21-32 mmol/L Blood Urea Nitrogen 19 H 7-18 mg/dL Creatinine 2.0 H 0.5-1.0 mg/dL Glomerular Filtration Rate Calc 30 >90 mL/min Random Glucose 165 H 70-105 mg/dL Total Calcium 19.6 *H 8.5-10.1 mg/dL Magnesium Level 1.20 L 1.80-2.40 mg/dL Total Bilirubin 0.8 0.2-1.0 mg/dL Aspartate Amino Transf (AST/SGOT) 52 H 10-37 U/L Alanine Aminotransferase (ALT/SGPT) 30 12-78 U/L Alkaline Phosphatase 113 50-136 U/L Ammonia < 10 L 11-32 umol/L Total Creatine Kinase 129 21-232 U/L Troponin I High Sensitivity 49 4-50 ng/L B-Type Natriuretic Peptide 28 0-100 pg/mL Total Protein 6.7 6.0-8.3 g/dL Albumin 3.0 L 3.5-5.0 g/dL Amylase Level 253 H 25-115 U/L Lipase 480 H 16-77 U/L Coagulation Labs: Test 03/11/25 21:47 Range/Units Prothrombin Time 13.0 H 9.6-11.6 SEC Prothromb Time International Ratio 1.25 H 0.85-1.15 Activated Partial Thromboplast Time 21.7 L 26.3-35.5 SEC DIAGNOSTICS / RADIOLOGY RESULTS: [ ] PLAN NEURO: Minimize central acting medications as possible. Fall Precautions. Well lighted room through the day and minimize interruptions through the night to prevent acute delirium. PULMONARY: Supplemental 02 as needed Titrate Fio2 to keep Spo2 > or = 90% DuoNebs and CPT as needed IS hourly while awake for pulmonary hygiene CARDIOVASCULAR: Follow hemodynamics. Titrate vasopressor to keep MAP >65 or systolic blood pressure >95mmHg DIPS: None LINES: PIV GI & NUTRITION: NPO Continue nutritional support Aspirations precautions Prokinetic agents and laxatives as needed KIDNEYS & ELECTROLYTES: Strict monitoring of intake and output Daily weights Avoid nephrotoxic agents Monitor electrolytes and replace as needed Goal urine output of 30mL/hr or 0.5mL/kg/hr ENDOCRINE: Maintain blood glucose between 100-180 at all times. Insulin sliding scale for blood glucose management INFECTIOUS DISEASE: Trend temperature. Sprague-culture if febrile. Micro: [ ] Antibiotics: [ ] HEMATOLOGY & COAGULATION: Monitor H&H. Keep Hgb > 7 Transfuse 1 unit of PRBC for Hgb < 7 Transfuse 1 pack of platelets of platelets < 20, 000 Watch for any signs and symptoms of bleeding SKIN: Pressure ulcer prevention per facility protocol Rehab: PT/OT Prophylaxis: GI: PPI DVT: Bilateral SCDs Code Status: Full Resuscitation Disposition: ICU Other: Total patient care time exceeds 35 minutes excluding all procedures. Supervising physician: MO Glez RN SPINE Mar 12, 2025 02:02
[2025-03-12] MEDS: ZOSYN 3.375GM +NS 50ML IV SCH (03:20)
[2025-03-12] MEDS: PoTASSium chloRIDE 20MEQ/100ML 100 ML IV PRN (03:20)
[2025-03-12] MEDS: 0.9%NACL 1000ML 1,000 ML IV SCH (03:21)
[2025-03-12] MEDS: VANCOMYCIN HCL 1.25 GM/250 ML BAG IV ONE (04:57)
[2025-03-12 05:45] LABS: BASOPHILS # (AUTO) 0.02 K/uL (0.00-0.20); BASOPHILS % (AUTO) 0.1 % (0.0-5.0); EOSINOPHILS # (AUTO) 0.02 K/uL (0.00-0.70); EOSINOPHILS % (AUTO) 0.1 % (0.0-8.0); HEMATOCRIT 41.2 % (36-48); IMMATURE GRANULOCYTE ABSOLUTE 0.11 K/uL (0-1); LYMPHOCYTES # (AUTO) 0.6 K/uL (1.0-4.8); LYMPHOCYTES % (AUTO) 3.5 % (21.0-51.0); MEAN CORPUSCULAR HEMOGLOBIN 29.3 pg (27.0-33.0); MEAN CORPUSCULAR HGB CONC 35.4 g/dL (32.0-36.0); MEAN CORPUSCULAR VOLUME 82.7 fL (79-99); MONOCYTES # (AUTO) 0.8 K/uL (0.1-1.0); MONOCYTES % (AUTO) 4.5 % (3.0-13.0); NEUTROPHILS # (AUTO) 15.7 K/uL (1.8-7.7); NEUTROPHILS % (AUTO) 91.2 % (40.0-77.0); PLATELET COUNT (AUTO) 350 K/uL (130-400); RED BLOOD CELL COUNT(AUTO) 4.98 MIL/uL (4.00-5.50); RED CELL DISTRIBUTION WIDTH 13.4 % (11.0-15.5); WHITE BLOOD COUNT (AUTO) 17.3 K/uL (4.8-10.8)
--- NOTE | 2025-03-12 06:04 | EKG ---
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
[2025-03-12 06:18] LABS: CREATINE KINASE, TOTAL 86 U/L (21-232)
[2025-03-12 06:22] LABS: B-TYPE NATRIURETIC PEPTIDE 64 pg/mL (0-100)
[2025-03-12 06:26] LABS: ALBUMIN 2.5 g/dL (3.5-5.0); BILIRUBIN,DIRECT 0.3 mg/dL (0.0-0.3); BILIRUBIN,TOTAL 0.7 mg/dL (0.2-1.0); CREATININE 2.2 mg/dL (0.5-1.0); MAGNESIUM 1.2 mg/dL (1.80-2.40); PHOSPHORUS 3.4 mg/dL (2.5-4.9); POTASSIUM 3.9 mmol/L (3.5-5.1); THYROID STIMULATING HORMONE 0.4 uIU/mL (0.36-3.74); TOTAL PROTEIN, SERUM 6.5 g/dL (6.0-8.3)
--- NOTE | 2025-03-12 06:34 | EKG ---
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
[2025-03-12] MEDS: MAGNESIUM 2GM PREMIX 50ML 50 ML IV SCH (06:44)
[2025-03-12] MEDS: INSULIN humuLIN R 100 UNIT/ML 3ML SQ SCH (06:45)
--- NOTE | 2025-03-12 07:08 | PN ---
[facility] Cardiology Progress Note CARDIOLOGY PROGRESS NOTE MARCH 12, 2025 Problems: 1. Abnormal EKG with [address]-elevation in V5 and V6 and reciprocal ST depressions in the inferior leads worrisome for STEMI 2. Normal coronary arteries and left heart catheterization 3. Lower abdominal pain 4. Acute kidney injury with creatinine of 2.0 and estimated GFR of 30 on admission 5. Diabetes mellitus type 6. Hypokalemia 7. Hypertension 8. Bilateral patchy infiltrates consistent with community-acquired pneumonia, brain natriuretic peptide level of 28 The patient related that she had been having some intermittent chest pains at home but would actually brought her to the hospital with lower abdominal pain. Electrocardiogram showed1 mm ST-elevation in V5 V6 with reciprocal inferior wall depressions suggestive of STEMI. A STEMI code was called and the patient was taken emergently to the catheterization laboratory. This actually demonstrated normal coronary arteries. Lines have been removed. This morning blood pressure is 150-160 systolic heart rate is 117 per minute. She is in a sinus tachyca rdia. With replacement potassium is up to 3.9. Creatinine 2.2 estimated GFR of 26. Troponins are 49, 62 and 57. Brain natriuretic peptide level of 28. [place] [address] [place] [address] hemoglobin 14.6 platelet count 611191. Chest x-ray on admission showed bilateral patchy infiltrates. It was initially felt that the patient might be in congestive heart failure however, brain natriuretic peptide level came back at only raising the possibility the patient might have bilateral pneumonia. CT scan of the abdomen chest and pelvis has been completed report is pending. Abdominal sonogram has been completed and report is pending. Patient has good breath sounds bilaterally. Cath site showed no hematoma. A 2D echocardiogram is pending. Summary the patient appears to be presenting not with an acute ST-elevation MT but rather possible bilateral pneumonia and acute kidney failure. We will discontinue furosemide. LC GOMEZ MD Mar 12, 2025 07:08
--- NOTE | 2025-03-12 08:09 | HMCIMG ---
Exam Type: CT HEAD/BRAIN W/O CONTRAST Clinical Information: head trauma Comparison: None CT Dose Index (CTDI): 57.33 mGy Dose Length Product (DLP): 956.79 total mGy-cm Findings: The examination is unremarkable. Arango-white matter junction is preserved. No intra or extra axial lesions or fluid collections are seen. Specifically, arango and white matter are normal in signal characteristics with normal caliber of ventricles and periventricular cisterns with no evidence of intra or or extra-axial hemorrhage, lacunar infarct, or major territorial infarct, mass, or other abnormality. There are no infarcts. There are no hemorrhages. Periventricular white matter locations are preserved. The orbital contents and structures of the posterior fossa are intact. Impression: Normal CT of the head. This study was performed using dose reduction techniques to include automated exposure control and/or adjustment of the mA and/or kV according to patient size.
--- NOTE | 2025-03-12 08:20 | HMCIMG ---
Exam Type: CT CHEST/ABD/PELV W/O CONTRAST Clinical Information: abdominal pain Comparison: None CT Dose Index (CTDI): 26.51 mGy Dose Length Product (DLP): 1987.6 total mGy PROTOCOL: Examination is done at 2.5 millimeter volumetric acquisition after contrast administration with Isovue 370, 100 cc IV, without complications. Photography is done at 5 millimeter thick intervals for the thorax. FINDINGS: The thyroid gland is unremarkable. There is no evidence of pulmonary embolism. The airway is intact. The trachea and major bronchi are unremarkable. Diffuse bilateral pulmonary nodules are seen consistent with metastatic disease. Mediastinal lymphadenopathy is seen as well, probably metastatic as well. No pleural effusions are identified. The aorta shows no aneurysmal dilatation or significant atheromatous calcification. No significant brachiocephalic vascular abnormalities are seen. The heart is unremarkable. It is not enlarged. No significant coronary arterial calcifications are seen. There is no pericardial effusion. The rib cage appears unremarkable. The soft tissues of the chest wall are unremarkable. The dorsal spine shows no significant abnormalities. No evidence of nephro or ureterolithiasis is found. No hydronephrosis or ureteral dilatation is seen. The stomach is unremarkable. It shows no wall thickening. No gross ulceration is seen. It is not overly distended. There are no surrounding inflammatory changes. No wall lesions are identified to suggest cancer. The spleen is unremarkable. It is not enlarged. Peripancreatic edema is seen possibly representing acute pancreatitis. [id number] retroperitoneal and pelvic adenopathy is noted consistent with metastatic disease and there is mesenteric nodularity and probable omental caking consistent with peritoneal carcinomatosis. The gallbladder is unremarkable. It shows no cholelithiasis. The gallbladder wall is normal in thickness. There is no pericholecystic fluid. The is no acute or chronic inflammation noted. The adrenal glands are unremarkable. There is no enlargement. No lesions are noted. The liver is unremarkable. It shows no focal masses. The appendix is unremarkable. It shows no evidence of inflammation. No appendicolith is seen. The small bowel is unremarkable. There is no evidence of dilatation to suggest obstruction. No evidence of adynamic ileus is seen. There is no small bowel wall thickening to suggest enteritis. The colon is unremarkable. The urinary bladder is unremarkable. There is no wall thickening to suggest tumor or inflammation. There are no intraluminal calculi. There are no diverticula. There is no evidence of chronic bladder outlet obstruction. There is no evidence of urinary bladder distention to suggest urinary retention. The other pelvic structures are unremarkable. The bony and vascular structures are unremarkable for the patient's age. Impression: Acute pancreatitis. 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 This study was performed using dose reduction techniques to include automated exposure control and/or adjustment of the mA and/or kV according to patient size.
--- NOTE | 2025-03-12 08:21 | HMCIMG ---
Exam Type: CT cervical spine without contrast Clinical Information: head trauma Comparison: None Technique: Spiral axial images were performed from the base of the skull down to the thoracic vertebral bodies. Both sagittal and coronal reconstructions were performed. CT Dose Index (CTDI): 12.85 mGy Dose Length Product (DLP): 282.6 total Findings: There are degenerative changes. Degenerative disc disease is noted at multiple levels. There is reversal of normal cervical lordosis consistent with degeneration and spasm. There are no fractures. There is facet hypertrophy at multiple levels. IMPRESSION: Degenerative changes as noted. No acute pathology. No fractures seen. This study was performed using dose reduction techniques to include automated exposure control and/or adjustment of the mA and/or kV according to patient size.
[2025-03-12] MEDS: FAMOTIDINE 20MG VIAL IV SCH (08:57)
[2025-03-12] MEDS: metoPROLOL tartRATE 1 MG/ML 5ML VIAL IV ONE (08:58)
[2025-03-12] MEDS: metoPROLOL tartRATE 25 MG TAB PO SCH (09:00)
[2025-03-12] MEDS: HEParin 5,000 UNIT VIAL SQ SCH (09:03)
--- NOTE | 2025-03-12 09:25 | NUR ---
DCP: HOME Pt currently resides with girlfriend Lashon Holm [phone]. Pt does not have insecurities with food, jail, and/or utilities. Pt does not have DME, home health, or provider services. 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 PT is able to complete ADLs independently. PCP is Carolee HOWARD and uses Lyudmila Massey for any RX needs. At [place] pt will DC home and girlfriend can assist with transportation. Addendum: 03/12/25 at 0933 by MYNOR VALENTINE SS Amended: Links added.
--- NOTE | 2025-03-12 09:39 | HMCIMG ---
Exam Type: US ABDOMINAL COMPLETE Clinical Information: Acute renal failure, abdominal pain Comparison: None Findings: The liver shows normal echogenicity and is otherwise unremarkable. The liver measures less than 16 cm in length. Doppler evaluation shows patent portal and hepatic veins. The gallbladder shows intraluminal sludge without evidence of acute or chronic inflammation. The gallbladder wall thickness is 2 mm. No bile duct dilatation is noted. The common bile duct measures 6 mm. The right kidney measures 10.9 x 5.3 cm. The left kidney measures 11.1 x 4.9 cm. The kidneys are hyperechoic consistent with renal parenchymal disease. No hydronephrosis or renal calculi are seen. There are no renal masses. The pancreas is unremarkable. The spleen is unremarkable. The aorta and inferior vena cava show no significant abnormalities. Incidentally, left periumbilical hernia is suspected, containing bowel. IMPRESSION: Hyperechoic kidneys consistent with renal parenchymal disease. Gallbladder sludge. Suspected periumbilical hernia, bowel containing. Consider further evaluation with CT of the abdomen pelvis without contrast.
--- NOTE | 2025-03-12 09:57 | PN ---
[facility] PROGRESS NOTE Date Patient Seen: Mar 12, 2025 Time of Visit: 09:57 Supervising Physician: [CHRISTI MARTINEZ MD ] Consulting Physician: Hospitalist Outpatient Specialists: [ ] Inpatient Consults: Cardiology PROBLEM LIST: Acute hypoxic respiratory failure, chest x-ray showed pulmonary edema, POA Acute metabolic encephalopathy, POA CT HEAD NEG, likely from hypercalcemia Acute kidney injury, POA Ground level fall, two falls at home, without loss of consciousness, POA STEMI, status post cardiac catheterization, no intervention done with Dr. English Hypertension, POA Hypercalcemia, POA Hypokalemia, POA Hyponatremia, POA Hypomagnesemia, POA Electrolyte abnormality, POA Acute pancreatitis, POA Hyperlipidemia, POA Severe sepsis, POA Acute complicated cystitis, POA DM type 2, with hyperglycemia, poorly controlled, POA Morbid obesity, BMI of 35.8, POA INTERVAL HISTORY: 54-year-old female with past medical history of hypertension, hyperlipidemia, DM type 2, morbid obesity,untreated uterine cancer (15years as per bystander) presented to ED with complaints of generalized body weakness, diffuse abdominal pain , confusion and was found to have ST elevations in lead V5 , V6, with ST depressions in leads 2,3,AVF Vitals at the time of presentation : T 99, HR 116, RR 30/min , BP 138/98 mm of Hg , SPO2 89%RA She underwent emergent left heart catheterization by Dr English on 03.11.25 which revealed normal coronary arteries. CXR showed bilateral extensive fluffy infiltrates, however, BNP was [place] . [place] [address], sodium of 132, potassium of 2.4, magnesium of 1.2, and calcium level of 19.6, BUN of 19, and creatinine level of 2.0. Her lactic acid was elevated at 4.1, and lipase was 480. Her COVID and flu tests were negative, however her UA showed urinary tract infection. CT abdomen, pelvis and chest showed features suggestive of Acute pancreatitis , metastatic disease suspected to lungs ,retroperitoneum, peritoneum and peritoneal carcinomatosis . She is admitted to ICU for further evaluation and management of STEMI, acute kidney injury, acute metabolic encephalopathy,malignant hypercalcemia , multiple electrolyte abnormality, severe sepsis, urinary tract infection, and possible acute pancreatitis. 03.12.25: Patient remains confused. She is oriented to person , but not to time and place . She is NPO and is being treated with IV NS @150 ml/hour .CT head is unremarkable Calcium levels down to 17.6. Oncology is consulted for further recommendations on managing hypercalcemia and underlying malignancy . She is placed on CPAP and continues on IV Doxycycline , Vanco, Zosyn, Solumedrol .Pending Bone scan , respiratory, urine and blood culture. Patients girl friend was at the bedside - and I informed the diagnosis, the poor prognosis and plan of care with her and she confirms understanding . REVIEW OF SYSTEMS: Unable to obtain due to alteration in mental status PHYSICAL EXAM: GENERAL: Confused, but calm HEENT: EOMI, Sclera non icteric, moist mucosa NECK: Supple, no JVD, trachea midline LUNGS: Coarse bilateral lung sounds HEART: Regular rate and rhythm. Normal S1 and S2, without murmurs ABD: Very tender abdomen EXT: No clubbing cyanosis or edema NEURO: Confused Vital Signs (last 8hr) Date Time Temp Pulse Resp B/P (MAP) Pulse Ox O2 Delivery O2 Flow Rate FiO2 03/12/25 09:13 89 14 106/53 (70) 96 40 03/12/25 09:00 91 27 167/92 (117) 96 40 03/12/25 08:58 115 164/89 03/12/25 08:13 120 24 171/116 (134) 93 40 03/12/25 08:00 98.1 112 25 162/83 (109) 95 40 03/12/25 08:00 98.1 03/12/25 07:00 109 29 155/85 (108) 94 40 03/12/25 06:15 117 36 168/103 93 03/12/25 06:00 117 34 162/71 96 03/12/25 05:45 118 35 157/80 95 03/12/25 05:30 113 38 159/88 95 03/12/25 05:15 117 35 157/84 94 03/12/25 05:00 118 31 157/63 95 03/12/25 04:45 119 32 153/83 95 03/12/25 04:30 118 36 153/82 94 03/12/25 04:15 117 33 148/75 95 Nasal Cannula 5.0 03/12/25 04:00 95 Nasal Cannula* 5 40 03/12/25 04:00 117 20 149/73 95 Nasal Cannula 5.0 03/12/25 03:45 115 20 153/79 95 Nasal Cannula 5.0 03/12/25 03:30 120 20 175/97 95 Nasal Cannula 5.0 03/12/25 03:15 120 20 145/75 95 Nasal Cannula 5.0 03/12/25 03:00 119 20 151/78 95 Nasal Cannula 5.0 03/12/25 02:45 119 20 140/71 95 Nasal Cannula 5.0 03/12/25 02:30 120 20 142/79 95 Nasal Cannula 5.0 03/12/25 02:00 118 20 140/76 95 Nasal Cannula 5.0 LABS: Hematology Labs: Test 03/12/25 05:14 03/11/25 21:47 Range/Units White Blood Count 17.3 H 4.8-10.8 K/uL Red Blood Count 4.98 4.00-5.50 MIL/uL Hemoglobin 14.6 12.0-16.0 g/dL Hematocrit 41.2 36-48 % Mean Corpuscular Volume 82.7 79-99 fL Mean Corpuscular Hemoglobin 29.3 27.0-33.0 pg Mean Corpuscular Hemoglobin Concent 35.4 32.0-36.0 g/dL Red Cell Distribution Width 13.4 11.0-15.5 % Platelet Count 350 130-400 K/uL Mean Platelet Volume 10.3 7.5-10.5 fL Immature Granulocyte % (Auto) 0.6 0-1 % Neutrophils (%) (Auto) 91.2 H 40.0-77.0 % Lymphocytes (%) (Auto) 3.5 L 21.0-51.0 % Monocytes (%) (Auto) 4.5 3.0-13.0 % Eosinophils (%) (Auto) 0.1 0.0-8.0 % Basophils (%) (Auto) 0.1 0.0-5.0 % Neutrophils # (Auto) 15.7 H 1.8-7.7 K/uL Lymphocytes # (Auto) 0.6 L 1.0-4.8 K/uL Monocytes # (Auto) 0.8 0.1-1.0 K/uL Eosinophils # (Auto) 0.02 0.00-0.70 K/uL Basophils # (Auto) 0.02 0.00-0.20 K/uL Absolute Immature Granulocyte (auto 0.11 0-1 K/uL Nucleated Red Blood Cells 0.0 0.0-0.19 % White Cell Morphology Comment See comments Chemistry Labs: Test 03/12/25 08:48 03/12/25 05:14 03/12/25 01:23 03/11/25 22:05 Range/Units Troponin I High Sensitivity 58 *H 4-50 ng/L Lipase 209 H 16-77 U/L Sodium Level 134 L 136-145 mmol/L Potassium Level 3.9 3.5-5.1 mmol/L Chloride Level 96 L 101-111 mmol/L Carbon Dioxide Level 30 21-32 mmol/L Blood Urea Nitrogen 21 H 7-18 mg/dL Creatinine 2.2 H 0.5-1.0 mg/dL Glomerular Filtration Rate Calc 26 >90 mL/min Random Glucose 143 H 70-105 mg/dL Total Calcium 17.6 *H 8.5-10.1 mg/dL Ionized Calcium 2.35 *H 1.15-1.33 MMOL/L Phosphorus Level 3.4 2.5-4.9 mg/dL Magnesium Level 1.20 L 1.80-2.40 mg/dL Total Bilirubin 0.7 0.2-1.0 mg/dL Direct Bilirubin 0.3 0.0-0.3 mg/dL Aspartate Amino Transf (AST/SGOT) 47 H 10-37 U/L Alanine Aminotransferase (ALT/SGPT) 24 12-78 U/L Alkaline Phosphatase 96 50-136 U/L Ammonia 32 11-32 umol/L Total Creatine Kinase 86 # 21-232 U/L B-Type Natriuretic Peptide 64 0-100 pg/mL Total Protein 6.5 6.0-8.3 g/dL Albumin 2.5 L 3.5-5.0 g/dL Amylase Level 189 #H 25-115 U/L Thyroid Stimulating Hormone (TSH) 0.40 # 0.36-3.74 uIU/mL Lactic Acid Level 4.1 H 0.8-2.5 mmol/L Whole Blood Glucose 170 H 70-110 MG/DL Coagulation Labs: Test 03/11/25 21:47 Range/Units Prothrombin Time 13.0 H 9.6-11.6 SEC Prothromb Time International Ratio 1.25 H 0.85-1.15 Activated Partial Thromboplast Time 21.7 L 26.3-35.5 SEC DIAGNOSTICS / RADIOLOGY RESULTS: [PATIENT: SULMA MENESES MR#: [id number] : 1970 SEX: F AGE: 54 LOCATION: 2BH ORDER [id number] STATUS: ADM IN HOSPITAL REPORT#: [id number] SERVICE 06 REASON: Acute renal failure, abdominal pain ORDERING PHYSICIAN: LC ENGLISH MD PROCEDURE: ABDOMEN - US ABDOMINAL COMPLETE Exam Type: US ABDOMINAL COMPLETE Clinical Information: Acute renal failure, abdominal pain Comparison: None Findings: The liver shows normal echogenicity and is otherwise unremarkable. The liver measures less than 16 cm in length. Doppler evaluation shows patent portal and hepatic veins. The gallbladder shows intraluminal sludge without evidence of acute or chronic inflammation. The gallbladder wall thickness is 2 mm. No bile duct dilatation is noted. The common bile duct measures 6 mm. The right kidney measures 10.9 x 5.3 cm. The left kidney measures 11.1 x 4.9 cm. The kidneys are hyperechoic consistent with renal parenchymal disease. No hydronephrosis or renal calculi are seen. There are no renal masses. The pancreas is unremarkable. The spleen is unremarkable. The aorta and inferior vena cava show no significant abnormalities. Incidentally, left periumbilical hernia is suspected, containing bowel. IMPRESSION: Hyperechoic kidneys consistent with renal parenchymal disease. Gallbladder sludge. Suspected periumbilical hernia, bowel containing. Consider further evaluation with CT of the abdomen pelvis without contrast. DICTATED BY: BALA GARCIA MD DATE: 03/12/25933 ELECTRONICALLY SIGNED BY: BALA GARCIA MD DATE: 03/12/25938 ] PATIENT: SULMA MENESES MR#: [id number] : 1970 SEX: F AGE: 54 LOCATION: 2BH ORDER [id number] STATUS: ADM IN REPORT#: [id number] SERVICE 0142 REASON: abdominal pain ORDERING PHYSICIAN: MO HERNANDEZ APRN PROCEDURE: CAP WO - CT CHEST/ABD/PELV W/O CONTRAST Exam Type: CT CHEST/ABD/PELV W/O CONTRAST Clinical Information: abdominal pain Comparison: None CT Dose Index (CTDI): 26.51 mGy Dose Length Product (DLP): 1987.6 total mGy PROTOCOL: Examination is done at 2.5 millimeter volumetric acquisition after contrast administration with Isovue 370, 100 cc IV, without complications. Photography is done at 5 millimeter thick intervals for the thorax. FINDINGS: The thyroid gland is unremarkable. There is no evidence of pulmonary embolism. The airway is intact. The trachea and major bronchi are unremarkable. Diffuse bilateral pulmonary nodules are seen consistent with metastatic disease. Mediastinal lymphadenopathy is seen as well, probably metastatic as well. No pleural effusions are identified. The aorta shows no aneurysmal dilatation or significant atheromatous calcification. No significant brachiocephalic vascular abnormalities are seen. The heart is unremarkable. It is not enlarged. No significant coronary arterial calcifications are seen. There is no pericardial effusion. The rib cage appears unremarkable. The soft tissues of the chest wall are unremarkable. The dorsal spine shows no significant abnormalities. No evidence of nephro or ureterolithiasis is found. No hydronephrosis or ureteral dilatation is seen. The stomach is unremarkable. It shows no wall thickening. No gross ulceration is seen. It is not overly distended. There are no surrounding inflammatory changes. No wall lesions are identified to suggest cancer. The spleen is unremarkable. It is not enlarged. Peripancreatic edema is seen possibly representing acute pancreatitis. [id number] retroperitoneal and pelvic adenopathy is noted consistent with metastatic disease and there is mesenteric nodularity and probable omental caking consistent with peritoneal carcinomatosis. The gallbladder is unremarkable. It shows no cholelithiasis. The gallbladder wall is normal in thickness. There is no pericholecystic fluid. The is no acute or chronic inflammation noted. The adrenal glands are unremarkable. There is no enlargement. No lesions are noted. The liver is unremarkable. It shows no focal masses. The appendix is unremarkable. It shows no evidence of inflammation. No appendicolith is seen. The small bowel is unremarkable. There is no evidence of dilatation to suggest obstruction. No evidence of adynamic ileus is seen. There is no small bowel wall thickening to suggest enteritis. The colon is unremarkable. The urinary bladder is unremarkable. There is no wall thickening to suggest tumor or inflammation. There are no intraluminal calculi. There are no diverticula. There is no evidence of chronic bladder outlet obstruction. There is no evidence of urinary bladder distention to suggest urinary retention. The other pelvic structures are unremarkable. The bony and vascular structures are unremarkable for the patient's age. Impression: Acute pancreatitis. 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 This study was performed using dose reduction techniques to include automated exposure control and/or adjustment of the mA and/or kV according to patient size. DICTATED BY: BALA GARCIA MD DATE: 03/12/25814 ELECTRONICALLY SIGNED BY: BALA GARCIA MD DATE: 03/12/25819 PATIENT: SULMA MENESES MR#: [id number] : 1970 SEX: F AGE: 54 LOCATION: 2BH ORDER 45 STATUS: ADM IN [facility] REPORT#: [id number] SERVICE 43 REASON: head trauma ORDERING PHYSICIAN: SEAN DELGADILLO PROCEDURE: C SPIN WO - CT CERVICAL SPINE W/O CONTRAST Exam Type: CT cervical spine without contrast Clinical Information: head trauma Comparison: None Technique: Spiral axial images were performed from the base of the skull down to the thoracic vertebral bodies. Both sagittal and coronal reconstructions were performed. CT Dose Index (CTDI): 12.85 mGy Dose Length Product (DLP): 282.6 total Findings: There are degenerative changes. Degenerative disc disease is noted at multiple levels. There is reversal of normal cervical lordosis consistent with degeneration and spasm. There are no fractures. There is facet hypertrophy at multiple levels. IMPRESSION: Degenerative changes as noted. No acute pathology. No fractures seen. This study was performed using dose reduction techniques to include automated exposure control and/or adjustment of the mA and/or kV according to patient size. DICTATED BY: BALA GARCIA MD DATE: 03/12/25818 ELECTRONICALLY SIGNED BY: BALA GARCIA MD DATE: 03/12/25820 PLAN Continue ICU care NPO for now VS per unit protocol BONE SCAN Antibiotic management per primary Trend lactic acid level Complete bedrest for now Continue cardiac monitoring Replete electrolyte accordingly 2D echo pending results- Aspiration precautions Neuro check per ICU protocol Follow up culture results Strict I&O Insert Ortega catheter Treat fever aggressively Monitor temperature curve CBC, CMP, magnesium level daily IV fluid hydration with the NS at 150 mL/hour CPAP at HS and p.r.n. Calcitonin Pamidronate for hypercalcemia NEURO: Minimize central acting medications as possible. Fall Precautions. Well lighted room through the day and minimize interruptions through the night to prevent acute delirium. PULMONARY: Supplemental 02 as needed Titrate Fio2 to keep Spo2 > or = 90% DuoNebs and CPT as needed IS hourly while awake for pulmonary hygiene CARDIOVASCULAR: Follow hemodynamics. Titrate vasopressor to keep MAP >65 or systolic blood pressure >95mmHg DIPS: None LINES: PIV GI & NUTRITION: NPO Continue nutritional support Aspirations precautions Prokinetic agents and laxatives as needed KIDNEYS & ELECTROLYTES: Strict monitoring of intake and output Daily weights Avoid nephrotoxic agents Monitor electrolytes and replace as needed Goal urine output of 30mL/hr or 0.5mL/kg/hr ENDOCRINE: Maintain blood glucose between 100-180 at all times. Insulin sliding scale for blood glucose management INFECTIOUS DISEASE: Trend temperature. Sprague-culture if febrile. Micro: [ ] Antibiotics: [ ] HEMATOLOGY & COAGULATION: Monitor H&H. Keep Hgb > 7 Transfuse 1 unit of PRBC for Hgb < 7 Transfuse 1 pack of platelets of platelets < 20, 000 Watch for any signs and symptoms of bleeding SKIN: Pressure ulcer prevention per facility protocol Rehab: PT/OT Prophylaxis: GI: PPI DVT: Bilateral SCDs Code Status: Full Resuscitation Disposition: ICU Other: Total patient care time exceeds 35 minutes excluding all procedures. ATTESTATION BY PHYSICIAN I reviewed the documentation, medical decision making, and treatment plan as noted by the mid-level provider above. I agree with the findings and plan of care. Charbel Ring MD, [facility] Mar 12, 2025 09:57
[2025-03-12] MEDS: dexmedeTOMIDine 400MCG/NS100ML IV PRN (10:16)
[2025-03-12 10:28] LABS: ALBUMIN 2.4 g/dL (3.5-5.0); BILIRUBIN,TOTAL 0.8 mg/dL (0.2-1.0); CREATININE 2.2 mg/dL (0.5-1.0); POTASSIUM 3.7 mmol/L (3.5-5.1); TOTAL PROTEIN, SERUM 6.4 g/dL (6.0-8.3)
[2025-03-12] MEDS: Solu-medROL 40MG VIAL IVP SCH (10:33)
[2025-03-12] MEDS: DOXYCYCLINE 100MG+NS 250ML 250 ML IV SCH (10:33)
--- NOTE | 2025-03-12 10:54 | NUR ---
MRSA swab sent to lab via tube system at this time.
--- NOTE | 2025-03-12 11:15 | PN ---
[facility] PROGRESS NOTE Date Patient Seen: Mar 12, 2025 Time of Visit: 11:52 Supervising Physician: [ ] Consulting Physician: Hospitalist Outpatient Specialists: [ ] Inpatient Consults: Cardiology PROBLEM LIST: STEMI, status post cardiac catheterization,by Dr. English on 03.11.25-normal coronary arteries Acute hypoxic respiratory failure, POA secondary to lung mets Acute metabolic encephalopathy,POA Disseminated Malignancy : Peritoneal carcinomatosis with Lung metastasis as per CT -suspected primary: uterine cancer, POA Severe sepsis, POA, source:Acute complicated cystitis, POA Malignant Hypercalcemia, POA Acute pancreatitis, POA Hypokalemia, POA Hyponatremia, POA Hypomagnesemia, POA Acute kidney injury, POA Ground level fall, two falls at home, without loss of consciousness, POA Generalized body weakness, STEMI, confusion secondary to Malignant hypercalcemia Abdominal pain, nausea, vomiting secondary to peritoneal carcinomatosis Hyperlipidemia, POA Hypertension, POA DM type 2, with hyperglycemia, poorly controlled, POA Morbid obesity, BMI of 35.8, POA H/o untreated uterine cancer INTERVAL HISTORY: 54-year-old female with past medical history of hypertension, hyperlipidemia, DM type 2, morbid obesity,untreated uterine cancer (15years as per bystander) presented to ED with complaints of generalized body weakness, diffuse abdominal pain , confusion and was found to have ST elevations in lead V5 , V6, with ST depressions in leads 2,3,AVF Vitals at the time of presentation : T 99, HR 116, RR 30/min , BP 138/98 mm of Hg , SPO2 89%RA She underwent emergent left heart catheterization by Dr English on 03.11.25 which revealed normal coronary arteries. CXR showed bilateral extensive fluffy infiltrates, however, BNP was normal . [place] [address], sodium of 132, potassium of 2.4, magnesium of 1.2, and calcium level of 19.6, BUN of 19, and creatinine level of 2.0. Her lactic acid was elevated at 4.1, and lipase was 480. Her COVID and flu tests were negative, however her UA showed urinary tract infection. CT abdomen, pelvis and chest showed features suggestive of Acute pancreatitis , metastatic disease suspected to lungs ,retroperitoneum, peritoneum and pe ritoneal carcinomatosis . She is admitted to ICU for further evaluation and management of STEMI, acute kidney injury, acute metabolic encephalopathy,malignant hypercalcemia , multiple electrolyte abnormality, severe sepsis, urinary tract infection, and possible acute pancreatitis. 03.12.25: Patient remains confused. She is oriented to person , but not to time and place . She is NPO and is being treated with IV NS @150 ml/hour .CT head is unremarkable Calcium levels down to 17.6. Oncology is consulted for further recommendations on managing hypercalcemia and underlying malignancy . She is placed on CPAP and continues on IV Doxycycline , Vanco, Zosyn, Solumedrol .Pending Bone scan , respiratory, urine and blood culture. Patients girl friend was at the bedside - and I informed the diagnosis, the poor prognosis and plan of care with her and she confirms understanding . REVIEW OF SYSTEMS: Unable to obtain due to alteration in mental status PHYSICAL EXAM: GENERAL: Confused, but calm HEENT: EOMI, Sclera non icteric, moist mucosa NECK: Supple, no JVD, trachea midline LUNGS: Coarse bilateral lung sounds HEART: Regular rate and rhythm. Normal S1 and S2, without murmurs ABD: Very tender abdomen EXT: No clubbing cyanosis or edema NEURO: Confused Vital Signs (last 8hr) Date Time Temp Pulse Resp B/P (MAP) Pulse Ox O2 Delivery O2 Flow Rate FiO2 03/12/25 09:13 89 14 106/53 (70) 96 40 03/12/25 09:00 91 27 167/92 (117) 96 40 03/12/25 08:58 115 164/89 03/12/25 08:13 120 24 171/116 (134) 93 40 03/12/25 08:00 98.1 112 25 162/83 (109) 95 40 03/12/25 08:00 98.1 03/12/25 07:00 109 29 155/85 (108) 94 40 03/12/25 06:15 117 36 168/103 93 03/12/25 06:00 117 34 162/71 96 03/12/25 05:45 118 35 157/80 95 03/12/25 05:30 113 38 159/88 95 03/12/25 05:15 117 35 157/84 94 03/12/25 05:00 118 31 157/63 95 03/12/25 04:45 119 32 153/83 95 03/12/25 04:30 118 36 153/82 94 03/12/25 04:15 117 33 148/75 95 Nasal Cannula 5.0 03/12/25 04:00 95 Nasal Cannula* 5 40 03/12/25 04:00 117 20 149/73 95 Nasal Cannula 5.0 LABS: Hematology Labs: Test 03/12/25 05:14 03/11/25 21:47 Range/Units White Blood Count 17.3 H 4.8-10.8 K/uL Red Blood Count 4.98 4.00-5.50 MIL/uL Hemoglobin 14.6 12.0-16.0 g/dL Hematocrit 41.2 36-48 % Mean Corpuscular Volume 82.7 79-99 fL Mean Corpuscular Hemoglobin 29.3 27.0-33.0 pg Mean Corpuscular Hemoglobin Concent 35.4 32.0-36.0 g/dL Red Cell Distribution Width 13.4 11.0-15.5 % Platelet Count 350 130-400 K/uL Mean Platelet Volume 10.3 7.5-10.5 fL Immature Granulocyte % (Auto) 0.6 0-1 % Neutrophils (%) (Auto) 91.2 H 40.0-77.0 % Lymphocytes (%) (Auto) 3.5 L 21.0-51.0 % Monocytes (%) (Auto) 4.5 3.0-13.0 % Eosinophils (%) (Auto) 0.1 0.0-8.0 % Basophils (%) (Auto) 0.1 0.0-5.0 % Neutrophils # (Auto) 15.7 H 1.8-7.7 K/uL Lymphocytes # (Auto) 0.6 L 1.0-4.8 K/uL Monocytes # (Auto) 0.8 0.1-1.0 K/uL Eosinophils # (Auto) 0.02 0.00-0.70 K/uL Basophils # (Auto) 0.02 0.00-0.20 K/uL Absolute Immature Granulocyte (auto 0.11 0-1 K/uL Nucleated Red Blood Cells 0.0 0.0-0.19 % White Cell Morphology Comment See comments Chemistry Labs: Test 03/12/25 08:49 03/12/25 08:48 03/12/25 05:14 03/12/25 01:23 Range/Units Sodium Level 135 L 136-145 mmol/L Potassium Level 3.7 3.5-5.1 mmol/L Chloride Level 99 L 101-111 mmol/L Carbon Dioxide Level 25 21-32 mmol/L Blood Urea Nitrogen 25 H 7-18 mg/dL Creatinine 2.2 H 0.5-1.0 mg/dL Glomerular Filtration Rate Calc 26 >90 mL/min Random Glucose 152 H 70-105 mg/dL Total Calcium 17.6 *H 8.5-10.1 mg/dL Total Bilirubin 0.8 0.2-1.0 mg/dL Aspartate Amino Transf (AST/SGOT) 42 H 10-37 U/L Alanine Aminotransferase (ALT/SGPT) 26 12-78 U/L Alkaline Phosphatase 97 50-136 U/L Total Protein 6.4 6.0-8.3 g/dL Albumin 2.4 L 3.5-5.0 g/dL Troponin I High Sensitivity 58 *H 4-50 ng/L Lipase 209 H 16-77 U/L Ionized Calcium 2.35 *H 1.15-1.33 MMOL/L Phosphorus Level 3.4 2.5-4.9 mg/dL Magnesium Level 1.20 L 1.80-2.40 mg/dL Direct Bilirubin 0.3 0.0-0.3 mg/dL Ammonia 32 11-32 umol/L Total Creatine Kinase 86 # 21-232 U/L B-Type Natriuretic Peptide 64 0-100 pg/mL Amylase Level 189 #H 25-115 U/L Thyroid Stimulating Hormone (TSH) 0.40 # 0.36-3.74 uIU/mL Lactic Acid Level 4.1 H 0.8-2.5 mmol/L Test 03/11/25 22:05 Range/Units Whole Blood Glucose 170 H 70-110 MG/DL Coagulation Labs: Test 03/11/25 21:47 Range/Units Prothrombin Time 13.0 H 9.6-11.6 SEC Prothromb Time International Ratio 1.25 H 0.85-1.15 Activated Partial Thromboplast Time 21.7 L 26.3-35.5 SEC DIAGNOSTICS / RADIOLOGY RESULTS: PROCEDURE: CAP WO - CT CHEST/ABD/PELV W/O CONTRAST Exam Type: CT CHEST/ABD/PELV W/O CONTRAST Clinical Information: abdominal pain Comparison: None CT Dose Index (CTDI): 26.51 mGy Dose Length Product (DLP): 1987.6 total mGy PROTOCOL: Examination is done at 2.5 millimeter volumetric acquisition after contrast administration with Isovue 370, 100 cc IV, without complications. Photography is done at 5 millimeter thick intervals for the thorax. FINDINGS: The thyroid gland is unremarkable. There is no evidence of pulmonary embolism. The airway is intact. The trachea and major bronchi are unremarkable. Diffuse bilateral pulmonary nodules are seen consistent with metastatic disease. Mediastinal lymphadenopathy is seen as well, probably metastatic as well. No pleural effusions are identified. The aorta shows no aneurysmal dilatation or significant atheromatous calcification. No significant brachiocephalic vascular abnormalities are seen. The heart is unremarkable. It is not enlarged. No significant coronary arterial calcifications are seen. There is no pericardial effusion. The rib cage appears unremarkable. The soft tissues of the chest wall are unremarkable. The dorsal spine shows no significant abnormalities. No evidence of nephro or ureterolithiasis is found. No hydronephrosis or ureteral dilatation is seen. The stomach is unremarkable. It shows no wall thickening. No gross ulceration is seen. It is not overly distended. There are no surrounding inflammatory changes. No wall lesions are identified to suggest cancer. The spleen is unremarkable. It is not enlarged. Peripancreatic edema is seen possibly representing acute pancreatitis. Ucak-[id number]-rqqumyxo retroperitoneal and pelvic adenopathy is noted consistent with metastatic disease and there is mesenteric nodularity and probable omental caking consistent with peritoneal carcinomatosis. The gallbladder is unremarkable. It shows no cholelithiasis. The gallbladder wall is normal in thickness. There is no pericholecystic fluid. The is no acute or chronic inflammation noted. The adrenal glands are unremarkable. There is no enlargement. No lesions are noted. The liver is unremarkable. It shows no focal masses. The appendix is unremarkable. It shows no evidence of inflammation. No appendicolith is seen. The small bowel is unremarkable. There is no evidence of dilatation to suggest obstruction. No evidence of adynamic ileus is seen. There is no small bowel wall thickening to suggest enteritis. The colon is unremarkable. The urinary bladder is unremarkable. There is no wall thickening to suggest tumor or inflammation. There are no intraluminal calculi. There are no diverticula. There is no evidence of chronic bladder outlet obstruction. There is no evidence of urinary bladder distention to suggest urinary retention. The other pelvic structures are unremarkable. The bony and vascular structures are unremarkable for the patient's age. Impression: Acute pancreatitis. 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 This study was performed using dose reduction techniques to include automated exposure control and/or adjustment of the mA and/or kV according to patient size. DICTATED BY: BALA GARCIA MD DATE: 03/12/25814 ELECTRONICALLY SIGNED BY: BALA GARCIA MD DATE: 03/12/25819 PLAN Continue ICU care NPO for now continue IV NS @150 ml/hour Pending Oncology consult , bone scan , respiratory , urine and blood cultures VS per unit protocol Facilitate ordered imaging Antibiotic management per primary Trend lactic acid, calcium level Complete bedrest for now Continue cardiac monitoring Replete electrolyte accordingly Aspiration precautions Neuro check per ICU protocol Follow up culture results Strict I&O continue Ortega catheter care Treat fever aggressively Monitor temperature curve CBC, CMP, magnesium level daily NEURO: Minimize central acting medications as possible. Fall Precautions. Well lighted room through the day and minimize interruptions through the night to prevent acute delirium. PULMONARY: Supplemental 02 as needed Titrate Fio2 to keep Spo2 > or = 90% DuoNebs and CPT as needed IS hourly while awake for pulmonary hygiene CARDIOVASCULAR: Follow hemodynamics. Titrate vasopressor to keep MAP >65 or systolic blood pressure >95mmHg DIPS: None LINES: PIV GI & NUTRITION: NPO Continue nutritional support Aspirations precautions Prokinetic agents and laxatives as needed KIDNEYS & ELECTROLYTES: Strict monitoring of intake and output Daily weights Avoid nephrotoxic agents Monitor electrolytes and replace as needed Goal urine output of 30mL/hr or 0.5mL/kg/hr ENDOCRINE: Maintain blood glucose between 100-180 at all times. Insulin sliding scale for blood glucose management INFECTIOUS DISEASE: Trend temperature. Sprague-culture if febrile. Micro: [ ] Antibiotics: [ ] HEMATOLOGY & COAGULATION: Monitor H&H. Keep Hgb > 7 Transfuse 1 unit of PRBC for Hgb < 7 Transfuse 1 pack of platelets of platelets < 20, 000 Watch for any signs and symptoms of bleeding SKIN: Pressure ulcer prevention per facility protocol Rehab: PT/OT Prophylaxis: GI: PPI DVT: Bilateral SCDs Code Status: Full Resuscitation Disposition: ICU Other: Total patient care time exceeds 35 minutes excluding all procedures. ATTESTATION BY PHYSICIAN I have seen and examined the patient. I reviewed the documentation, medical d ecision making, and treatment plan as noted by the resident provider above. I agree with the findings and plan of care. REJI KELLY MD, ANCHU A MD Mar 12, 2025 11:15
[2025-03-12] MEDS ORDERED: TRAN650T5 PO (11:27)
[2025-03-12] MEDS ORDERED: FERR324T12 PO (11:27)
[2025-03-12] MEDS ORDERED: ERGO500093 PO (11:27)
[2025-03-12] MEDS ORDERED: CELE-146 PO (11:27)
[2025-03-12] MEDS ORDERED: VENL75CA97 PO (11:27)
[2025-03-12 14:00] LABS: CREATININE 2.3 mg/dL (0.5-1.0); MAGNESIUM 2.8 mg/dL (1.80-2.40)
--- NOTE | 2025-03-12 16:35 | CONS ---
CONSULT NOTE: This is a 54-year-old female with past medical history of hypertension, diabetes, depression and bipolar who presents to the ED for complaints of lower abdominal pain associated nausea ,vomiting, generalized body weakness and shortness of breaths which started three days ago.Patient also reports she fell a week ago and she was on her abdomen at the laundry mat and did not seek medical help and 2 days ago she fell again towards her left side hitting her left side face and left flank area due to body weakness.2 days ago patient started complaining of left sided body pain,dizziness and started being confused and having slurry speech as per friend who was at bedside during my evaluation.Friend says she lives with patient.As per friend patient has been seen by a cloth mender in [place] Dr. Ramon Jimenez and an echocardiogram and a 24 hour holter monitor was done because patient has also been having on and off chest pain for 2 months now she said.Upon ER arrival an EKG was done and showed an ST elevation on V5 and V6 and ST depressions on Lead 2 3 and AVF consistent with STEMI and code STEMI was activated per ER and patient was taken to blood bank laboratory professional for a left heart catheterization per and findings revealed normal coronary arteries and no evidence of ST elevation NC and patient was transferred to ICU. CT scan of the chest showing extensive metastatic disease to the lung bilaterally. CT scan of the abdomen showing extensive disease also to the intraperitoneal with peritoneal carcinomatosis. Her girlfriend was in the room. I was told that she have history of uterine cancer/cervical cancer long time ago with the patient never treated. REVIEW OF SYSTEMS CONSTITUTIONAL: Denies fevers, chills, or night sweats. No unintentional weight loss reported. NEUROLOGICAL: Positive generalized body weakness and dizziness Denies headache, amaurosis fugax, sensory deficit, gait abnormalities, or tremors. ENT: No hearing loss, otalgia, otorrhea, rhinitis, rhinorrhea, hoarseness, or sore throat. CARDIOVASCULAR: Complaints of chest pain and shortness of breaths Denies orthopnea, paroxysmal nocturnal dyspnea, palpitations, life-threatening arrhythmias, claudication. PULMONARY: Complaints of shortness of breaths Denies cough, phlegm/sputum, hemoptysis, pleuritic chest pain. SLEEP: Denies morning headaches, daytime somnolence or napping. Denies difficulty falling asleep, staying asleep, waking from sleep. Denies knowledge of snoring. GASTROINTESTINAL: Complaints of lower abdominal pain nausea vomiting Denies any type of dysphagia to either liquids or solids. Denies pyrosis, early satiety, diarrhea, constipation, or changes in stool consistency or caliber. Denies coff ee-ground emesis, hematemesis, hematochezia, or melanotic stools. GENITOURINARY: Denies frequency, urgency, nocturia, hematuria or incontinence (Storage/Irritative symptoms.) Low urinary stream, straining to void, urinary intermittency or hesitancy, splitting of the voiding stream, terminal dribbling. ENDOCRINOLOGIC: Denies polyuria, polydipsia, polyphagia or heat/cold intolerances. HEMATOLOGIC: Denies thrombophilia/previous clots, or coagulopathy/bleeding disorders. ONCOLOGIC: Denies personal history of malignancy. DERMATOLOGIC: Denies rashes or pruritus. PSYCHIATRIC: Denies any suicidal or homicidal ideation. Denies hallucinations. PAST MEDICAL HISTORY: [ Hypertension, diabetes, depression and bipolar ] PAST SURGICAL HISTORY: [ x4 ] PAST SOCIAL HISTORY: [Patient lives with friend. Patient denies alcohol tobacco and recreational drug use states she used to smoke occasionally but quit a year ago ] FAMILY HISTORY: [Noncontributory ] Coded Allergies: No Known Drug Allergies (Verified Allergy, 04/06/13) PHYSICAL EXAM GENERAL APPEARANCE: The patient is awake, alert, and oriented, in no acute cardiopulmonary distress. NEUROLOGICAL: Cranial nerves II-XII grossly intact. Motor is 5/5 in bilateral upper and lower extremities proximal to distal. No sensory deficits. HEENT: Face is symmetric. Pupils are equal and reactive. Extraocular movements are intact. NECK: Supple. No JVD. No thyromegaly. No submental, submandibular, pre- /postauricular, occipital or supraclavicular lymphadenopathy. CHEST: Normal chest expansion. No Telemetry. LUNGS: Absence of any rales, rhonchi or any wheezing. CARDIOVASCULAR: Regular. S1 and S2 normal. No appreciable rubs, murmurs or gallops. ABDOMEN: Abdominal tenderness located around lower abdominal quadrant on palpation Soft and nondistended. There is no rebound, voluntary guarding, or rigidity. : Deferred. No Ortega. EXTREMITIES: Non-edematous and not cyanotic. No clubbing. Good capillary refill. SKIN: No skin breakdown. Assessment 1.CT scan of the chest showing extensive metastatic disease to the lung bilaterally. 2. CT scan of the abdomen showing extensive disease also to the intraperitoneal with peritoneal carcinomatosis. 3. History of cervical/uterus cancer the patient never treated more than 10 years ago. 4. Respiratory failure 5. Diabetes mellitus 6. Hypertension Plan 1. I have long discussion with the girlfriend who was in the room. The patient is not alert or oriented from my point review. I explained the result of CT scan of chest and abdomen pelvis. I showed her the images. 2. This patient would like to have metastatic disease to the lung and to the abdomen. With the patient have extensive disease to the lung as the patient may be not going to survive long. 3. We talked to girlfriend to make her DNR/DNI or even hospice. I think she will talk to the family member regarding this. 4. Will ask for CA125 to be done. 5. I do not think we need to do anything for this patient on only comfort care. But if the girlfriend or family members I want biopsy to be done then we have to do biopsy from the lung or the retroperitoneal area. 6. This patient received Cipro. This patient is not going to receive any treatment. I explained to them that treating this patient with chemo actually will make it worse than benefit. MAMIE BARRETO MD Mar 12, 2025 16:35
--- NOTE | 2025-03-12 16:39 | HMCIMG ---
Exam Type: NM BONE SCAN WHOLE BODY Clinical Information: hypercalcemia, r/o metastasis Comparison: None RADIOPHARMACEUTICAL: Intravenous administration of 25 mCi of Tc-99m MDP . TECHNIQUE: Three-hour delayed anterior and posterior whole-body and upper extremities and lateral views of the skull and posterior obliques of the thorax were obtained. The distal humeri, the elbows, and the proximal and mid forearms are incompletely included in the films. FINDINGS: There is adequate, homogenous, and symmetric radiopharmaceutical uptake through out the axial and appendicular skeleton . Biodistribution in soft tissues and kidneys is unremarkable. IMPRESSION: No evidence of metastatic disease.
[2025-03-12] MEDS: PAMIDRONATE DISODIUM 90MG VIAL 90 MG in 0.9%NACL 1000ML 1,000 ML IV ONE (16:44)
[2025-03-12] MEDS ORDERED: NOREPINEPHRIN 4MG/NS 250ML 250 ML IV PRN (17:00)
--- NOTE | 2025-03-12 18:14 | HMCIMG ---
CHEST 1VW REASON: sob COMPARISON: None. FINDINGS: There are diffuse bilateral infiltrates which could be pneumonia or edema. Heart size is normal. There are no pleural effusions. The mediastinum and bony structures are unremarkable. IMPRESSION: 1. Diffuse bilateral infiltrates.
[2025-03-12] MEDS: SODIUM CHLORIDE 3% FOR INHALATION 4 ML/AMP VIAL.NEB IH ONE ×2 (19:31→23:34)
[2025-03-12] MEDS: PANTOPrazole 40 MG/VIAL IVP SCH (20:48)
[2025-03-12] MEDS ORDERED: CALCITONIN 400 UNIT VIAL SQ SCH (21:00)
[2025-03-13] VITALS (15 sets, daily range): BP systolic 98–154; BP diastolic 44–101; PULSE 68–117; RESP 13–26; TEMP 98.8–99.2; O2SAT 93–97
[2025-03-13 04:48] LABS: HEMATOCRIT 38.5 % (36-48); MEAN CORPUSCULAR HEMOGLOBIN 29.2 pg (27.0-33.0); MEAN CORPUSCULAR HGB CONC 34.3 g/dL (32.0-36.0); MEAN CORPUSCULAR VOLUME 85.2 fL (79-99); RED BLOOD CELL COUNT(AUTO) 4.52 MIL/uL (4.00-5.50); RED CELL DISTRIBUTION WIDTH 13.2 % (11.0-15.5); WHITE BLOOD COUNT (AUTO) 19.2 K/uL (4.8-10.8)
[2025-03-13 05:11] LABS: CREATININE 2.7 mg/dL (0.5-1.0); POTASSIUM 3.4 mmol/L (3.5-5.1)
[2025-03-13] MEDS: SODIUM CHLORIDE 3% FOR INHALATION 4 ML/AMP VIAL.NEB IH ONE (06:48)
--- NOTE | 2025-03-13 10:06 | HMCSR ---
APPROVED REPORT EXAM: Two-dimensional and M-mode echocardiogram with Doppler and color Doppler. INDICATION ICD: diastolic CHF 2D Dimensions RVDd2.8 cmLVEF(%)38.8 (>50%)LVED Vol(simp.)48.0 mL IVSd0.8 (0.7-1.1cm)FS(%)18 %LVES Vol(simp.)20.0 mL LVDd3.9 (3.8-5.6cm)LA (2D)3.0 (1.6-4.0cm)LVEF(%, simp.)59 % PWd1.1 (0.7-1.1cm)Ao Root(2D)2.0 (2.0-3.7cm)LA ESV INDEX (BP)18.15 mL/m2 LVDs3.2 (2.5-4.0cm)LVOT diam1.6 (1.8-2.4cm) Deformation Strain Apical 4-15.6 % Apical 2-18.6 % Apical 3-16.3 % Global Strain-16.8 % M-Mode Dimensions EPSS1.0 cm LA (MM)2.9 (1.6-4.0cm) Ao Root(MM)2.3 (2.0-3.7cm) Aortic Valve AoV Vmax1.6 m/Eugenio Peak GR9.8 mmHg AoV VTI0.2 mAo Mean GR4.9 mmHg Mitral Valve MV E Vmax77.6 cm/sDECEL Xkpx988 ms MV A Vmax85.8 cm/sP 1/2 T30 ms E/A ratio0.9MVA (PHT)7.3 cm2 TDI E/E' Akumpx74.9E/E' Pwcafgc93.5 Medial E' Peak V5.21 cm/sLateral E' Peak V6.77 cm/s Left Ventricle Left ventricular cavity size is normal. There is normal LV segmental wall motion. There is normal lef t ventricular wall thickness. LVEF is 55-60%. The left ventricular diastolic function is normal. Right Ventricle The right ventricle is normal size. The right ventricular systolic function is normal. Atria The left atrium size is normal. The right atrium size is normal. Aortic Valve The aortic valve is normal in structure. No aortic regurgitation is present. There is no aortic valvu lar stenosis. Mitral Valve The mitral valve is normal in structure. There is no mitral valve regurgitation noted. There is no mi tral valve stenosis. Tricuspid Valve The tricuspid valve is normal in structure. There is no tricuspid valve regurgitation noted. Pulmonic Valve The pulmonary valve is normal in structure. There is no pulmonic valvular regurgitation. Great Vessels The aortic root is normal in size. The IVC is normal in size and collapses >50% with inspiration. Pericardium There is no pericardial effusion. Conclusion LVEF is 55-60%.
--- NOTE | 2025-03-13 10:58 | PN ---
[facility] PROGRESS NOTE Date of Service: Mar 13, 2025 Time of Service: 10:54 SUBJECTIVE: This is a 54-year-old female with past medical history of hypertension, diabetes, depression and bipolar who presented to the ED March 12, 2025 for complaints of lower abdominal pain associated nausea ,vomiting, generalized body weakness and shortness of breaths which started three days ago. Patient also reported she fell a week ago and she was on her abdomen at the laundry mat and did not seek medical help and 2 days ago she fell again towards her left side hitting her left side face and left flank area due to body weakness. Approximately 2 days ago patient started complaining of left sided body pain,dizziness and started being confused and having slurry speech as per friend who was at bedside during my evaluation. Friend says she lives with patient.As per friend patient has been seen by a babysitter in [place] Dr. Ramon Jimenez and an echocardiogram and a 24 hour holter monitor was done because patient has also been having on and off chest pain for 2 months now she said. 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 Seen and examined patient in the ER awake,alert and coherent,with occasional forgetfulness.Patient moving all extremities equally and following commands. In the emergency room Latest vital signs temperature 97.3, heart rate 112, respiration 34, blood pressure 144/95 saturation 96% on 6 L nasal cannula. The emergency room Labs: WBC 16 with negative left shift of neutrophils 91, hemoglobin 15, hematocrit 43, platelet count 323 . Sodium 132, potassium 2.4, chloride 93, BUN 19, creatinine 2, GFR 30 glucose 165, total calcium 19, magnesium 1.2, AST 52 ammonia less than 10, troponin 49, BNP 28, albumin three, amylase 253, lipase 480. Urine toxicology negative serum alcohol less than three. Urinalysis consistent with urinary tract infection. ABG result revealed pH 7.46, CO2 41, PO2 68, bicarb 28 .8, base excess 4.7 taken at 4 L nasal cannula. ' Influenza type a and B negative SARs COVID negative. CT scan of the chest showing extensive metastatic disease to the lung bilaterally. CT scan of the abdomen showing extensive disease also to the intraperitoneal with peritoneal carcinomatosis. 03/13 patient is seen and examined today, awake, looks chronically ill-appearing, family members at bedside, case discussed with the RN taking care of the patient, family has requested comfort measures, patient has been made DNR/DNI, case management consulted. REVIEW OF SYSTEMS CONSTITUTIONAL: Denies fevers, chills, or night sweats. No unintentional weight loss reported. NEUROLOGICAL: Positive generalized body weakness and dizziness Denies headache, amaurosis fugax, sensory deficit, gait abnormalities, or tremors. ENT: No hearing loss, otalgia, otorrhea, rhinitis, rhinorrhea, hoarseness, or sore throat. CARDIOVASCULAR: Complaints of chest pain and shortness of breaths Denies orthopnea, paroxysmal nocturnal dyspnea, palpitations, life-threatening arrhythmias, claudication. PULMONARY: Complaints of shortness of breaths Denies cough, phlegm/sputum, hemoptysis, pleuritic chest pain. SLEEP: Denies morning headaches, daytime somnolence or napping. Denies difficulty falling asleep, staying asleep, waking from sleep. Denies knowledge of snoring. GASTROINTESTINAL: Complaints of lower abdominal pain nausea vomiting Denies any type of dysphagia to either liquids or solids. Denies pyrosis, early satiety, diarrhea, constipation, or changes in stool consistency or caliber. Denies coffee-ground emesis, hematemesis, hematochezia, or melanotic stools. GENITOURINARY: Denies frequency, urgency, nocturia, hematuria or incontinence (Storage/Irritative symptoms.) Low urinary stream, straining to void, urinary intermittency or hesitancy, splitting of the voiding stream, terminal dribbling. ENDOCRINOLOGIC: Denies polyuria, polydipsia, polyphagia or heat/cold intolerances. HEMATOLOGIC: Denies thrombophilia/previous clots, or coagulopathy/bleeding disorders. ONCOLOGIC: Denies personal history of malignancy. DERMATOLOGIC: Denies rashes or pruritus. PSYCHIATRIC: Denies any suicidal or homicidal ideation. Denies hallucinations. PHYSICAL EXAM GENERAL APPEARANCE: The patient is awake, alert, and oriented, in no acute cardiopulmonary distress. NEUROLOGICAL: Cranial nerves II-XII grossly intact. Motor is 5/5 in bilateral upper and lower extremities proximal to distal. No sensory deficits. HEENT: Face is symmetric. Pupils are equal and reactive. Extraocular movements are intact. NECK: Supple. No JVD. No thyromegaly. No submental, submandibular, pre-/postauricular, occipital or supraclavicular lymphadenopathy. CHEST: Normal chest expansion. No Telemetry. LUNGS: Absence of any rales, rhonchi or any wheezing. CARDIOVASCULAR: Regular. S1 and S2 normal. No appreciable rubs, murmurs or gallops. ABDOMEN: Abdominal tenderness located around lower abdominal quadrant on palpation Soft and nondistended. There is no rebound, voluntary guarding, or rigidity. : Deferred. No Ortega. EXTREMITIES: Non-edematous and not cyanotic. No clubbing. Good capillary refill. SKIN: No skin breakdown. Vital Signs (last 8hr) Date Time Temp Pulse Resp B/P (MAP) Pulse Ox O2 Delivery O2 Flow Rate FiO2 03/13/25 06:51 92 20 N/Cannula Low lpm 4.0 36 03/13/25 06:00 101 19 136/54 96 03/13/25 05:00 108 20 132/44 94 03/13/25 04:00 95 Nasal Cannula* 5 40 03/13/25 04:00 99.1 107 26 153/78 93 Nasal Cannula 5.0 03/13/25 03:43 116 26 153/78 93 03/13/25 03:00 117 23 148/69 97 LABS: Laboratory: Test 03/13/25 03:55 03/12/25 20:42 03/12/25 17:10 03/12/25 13:36 Range/Units White Blood Count 19.2 H 4.8-10.8 K/uL Red Blood Count 4.52 4.00-5.50 MIL/uL Hemoglobin 13.2 12.0-16.0 g/dL Hematocrit 38.5 36-48 % Mean Corpuscular Volume 85.2 79-99 fL Mean Corpuscular Hemoglobin 29.2 27.0-33.0 pg Mean Corpuscular Hemoglobin Concent 34.3 32.0-36.0 g/dL Red Cell Distribution Width 13.2 11.0-15.5 % Platelet Count 288 130-400 K/uL Mean Platelet Volume 10.6 H 7.5-10.5 fL Nucleated Red Blood Cells 0.0 0.0-0.19 % Sodium Level 139 136-145 mmol/L Potassium Level 3.4 L 3.5-5.1 mmol/L Chloride Level 105 101-111 mmol/L Carbon Dioxide Level 25 21-32 mmol/L Blood Urea Nitrogen 37 H 7-18 mg/dL Creatinine 2.7 H 0.5-1.0 mg/dL Glomerular Filtration Rate Calc 21 >90 mL/min Random Glucose 118 H 70-105 mg/dL Total Calcium 18.9 *H 8.5-10.1 mg/dL Whole Blood Glucose 110 70-110 MG/DL Lactic Acid Level 3.3 H 0.8-2.5 mmol/L Magnesium Level 2.80 H 1.80-2.40 mg/dL Troponin I High Sensitivity 50 4-50 ng/L Lipase 191 H 16-77 U/L Test 03/12/25 08:49 03/12/25 05:14 03/11/25 22:23 03/11/25 21:59 Range/Units Total Bilirubin 0.8 0.2-1.0 mg/dL Aspartate Amino Transf (AST/SGOT) 42 H 10-37 U/L Alanine Aminotransferase (ALT/SGPT) 26 12-78 U/L Alkaline Phosphatase 97 50-136 U/L Total Protein 6.4 6.0-8.3 g/dL Albumin 2.4 L 3.5-5.0 g/dL Immature Granulocyte % (Auto) 0.6 0-1 % Neutrophils (%) (Auto) 91.2 H 40.0-77.0 % Lymphocytes (%) (Auto) 3.5 L 21.0-51.0 % Monocytes (%) (Auto) 4.5 3.0-13.0 % Eosinophils (%) (Auto) 0.1 0.0-8.0 % Basophils (%) (Auto) 0.1 0.0-5.0 % Neutrophils # (Auto) 15.7 H 1.8-7.7 K/uL Lymphocytes # (Auto) 0.6 L 1.0-4.8 K/uL Monocytes # (Auto) 0.8 0.1-1.0 K/uL Eosinophils # (Auto) 0.02 0.00-0.70 K/uL Basophils # (Auto) 0.02 0.00-0.20 K/uL Absolute Immature Granulocyte (auto 0.11 0-1 K/uL Ionized Calcium 2.35 *H 1.15-1.33 MMOL/L Phosphorus Level 3.4 2.5-4.9 mg/dL Direct Bilirubin 0.3 0.0-0.3 mg/dL Ammonia 32 11-32 umol/L Total Creatine Kinase 86 # 21-232 U/L B-Type Natriuretic Peptide 64 0-100 pg/mL Amylase Level 189 #H 25-115 U/L CA 125 Antigen 186.0 H 0.0-38.1 U/mL Thyroid Stimulating Hormone (TSH) 0.40 # 0.36-3.74 uIU/mL Parathyroid Hormone (Intact) 13.5 15-65 pg/mL Blood Gas Specimen Type Arterial Arterial Blood pH 7.466 H 7.350-7.450 Arterial Blood Partial Pressure CO2 41 32-45 mmHg Arterial Blood Partial Pressure O2 68.0 L 83.0-108.0 mmHg Arterial Blood HCO3 28.8 H 21.0-28.0 mmol/L Arterial Blood Oxygen Saturation 94.5 94.0-98.0 % Arterial Blood Base Excess 4.7 H -2.0-3.0 mmol/L Blood Gas Temperature 37.0 35.5-37.0 CELSIUS Blood Gas Flow-by 4.00 0.00-15.00 L/min Blood Gas Vent Mode 4LNC ROOM AIR FiO2 36.0 % Blood Gas Specimen Comment LR RN Influenza Type A Antigen Negative For Type A NEGATIVE Influenza Type B Antigen Negative For Type B NEGATIVE SARS-CoV-2 Antigen (Rapid) PRESUMPTIVE NEGATIVE NEGATIVE Urine Color YELLOW YELLOW Urine Appearance TURBID CLEAR Urine pH 5.5 5.0-8.0 Urine Specific Allyn 1.020 1.001-1.031 Urine Protein 100 H NEGATIVE mg/dL Urine Glucose (UA) 50 H NEGATIVE mg/dL Urine Ketones 5 H NEGATIVE mg/dL Urine Occult Blood LARGE H NEGATIVE Urine Nitrate NEGATIVE NEGATIVE Urine Bilirubin NEGATIVE NEGATIVE mg/dL Urine Urobilinogen 2.0 H 0.2-1.0 mg/dL Urine Leukocyte Esterase 500 H NEGATIVE Jaimie/uL Urine RBC 51-100 H 0-1 /HPF Urine WBC TNTC H 0-1 /HPF Urine WBC Clumps (Auto) MANY 0-1 /HPF Urine Squamous Epithelial Cells MOD 0-2 /HPF Urine Non-Squamous Epithelial Cells 1 0-2 /HPF Urine Bacteria None None Seen /HPF Urine Yeast FEW None Seen /HPF Urine HCG, Qualitative NEGATIVE NEGATIVE Urine Opiates Screen NEGATIVE NEGATIVE Urine Barbiturates Screen NEGATIVE NEGATIVE Urine Phencyclidine Screen NEGATIVE NEGATIVE Urine Amphetamines Screen NEGATIVE NEGATIVE Urine Benzodiazepines Screen NEGATIVE NEGATIVE Urine Cocaine Screen NEGATIVE NEGATIVE Urine Marijuana (THC) Screen NEGATIVE NEGATIVE Test 03/11/25 21:47 Range/Units White Cell Morphology Comment See comments Prothrombin Time 13.0 H 9.6-11.6 SEC Prothromb Time International Ratio 1.25 H 0.85-1.15 Activated Partial Thromboplast Time 21.7 L 26.3-35.5 SEC Serum Alcohol < 3 0-10 mg/dL Current Medications Medications (Trade) Dose Ordered Sig/Leni Route PRN Reason Start Time Stop Time Status Last Admin Dose Admin Calcitonin (Miacalcin 400 Unit Inj) 400 units BID SQ 03/12/25 21:00 03/12/25 16:02 DC Dexmedetomidine/ Sodium Chloride (PRECEdex 400MCG/ 100ML-NS) 400 mcg PROTOCOL PRN IV agitaion 03/12/25 10:00 04/11/25 09:59 03/13/25 04:08 400 MCG Dextrose (D50w) 50 ml AD PRN IV HYPOGLYCEMIA PROTOCOL 03/12/25 00:00 04/11/25 00:00 Dextrose (D50w) 50 ml AD PRN IV HYPOGLYCEMIA PROTOCOL 03/12/25 00:30 03/12/25 00:18 DC Doxycycline Hyclate 250 ml @ 125 mls/hr Q12H IV 03/12/25 10:00 03/22/25 09:59 03/13/25 10:11 125 MLS/HR Famotidine (Pepcid 20mg Vial) 20 mg Q48H IV 03/12/25 09:00 03/12/25 09:56 DC 03/12/25 08:57 20 MG Furosemide (LASix 40MG VIAL) 40 mg Q12H IV 03/12/25 00:00 03/12/25 03:16 DC Glucagon (Glucagon 1mg Kit) 1 mg AD PRN IM HYPOGLYCEMIA PROTOCOL 03/12/25 00:00 04/11/25 00:00 Glucagon (Glucagon 1mg Kit) 1 mg AD PRN IM HYPOGLYCEMIA PROTOCOL 03/12/25 00:30 03/12/25 00:18 DC Heparin Sodium (Porcine) (HEParin 1,000 UNIT VIAL) 10,000 unit ONCE IVP 03/11/25 23:00 03/11/25 22:45 DC Heparin Sodium (Porcine) (HEParin 5,000 UNIT VIAL) 5,000 unit Q12H SQ 03/12/25 07:30 04/11/25 07:29 03/13/25 08:06 5,000 UNIT Insulin Human Regular (humuLIN R 100 UNIT/ML 3ML) INSULIN SLIDING SCAL... ACHS SQ 03/12/25 07:30 04/11/25 07:29 Magnesium Sulfate 50 ml @ 0 mls/hr PROTOCOL IV 03/11/25 23:00 04/10/25 22:59 03/12/25 08:58 25 MLS/HR Magnesium Sulfate 50 ml @ 0 mls/hr PROTOCOL PRN IV OTHER [SEE ORDER COMMENTS] 03/12/25 00:30 03/12/25 00:18 DC Methylprednisolone Sodium Succinate (Solu-medROL 40MG) 40 mg BID IVP 03/12/25 10:00 04/11/25 09:59 03/13/25 08:04 40 MG Metoprolol Tartrate (loprESSOR) 12.5 mg BID PO 03/12/25 09:00 04/11/25 08:59 Norepinephrine 250 ml @ 0 mls/hr AD PRN IV DIRECTED 03/12/25 17:00 04/11/25 16:59 Ondansetron HCl (zoFRAN 4MG INJ) 4 mg Q6H PRN IV NAUSEA/VOMITING 03/12/25 00:30 04/11/25 00:29 Pantoprazole Sodium (PROTonix 40MG INJ) 40 mg BID IVP 03/12/25 21:00 04/11/25 20:59 03/13/25 08:04 40 MG Piperacillin Sod/ Tazobactam Sod (Zosyn 3.375gm+NS 50ml) 3.375 gm Q8H IV 03/12/25 03:00 03/22/25 02:59 03/13/25 10:11 3.375 GM Potassium Chloride 100 ml @ 50 mls/hr AD PRN IV POTASSIUM PROTOCOL 03/12/25 00:30 04/11/25 00:29 03/12/25 05:48 50 MLS/HR Potassium Chloride 100 ml @ 100 mls/hr AD PRN IV POTASSIUM PROTOCOL 03/12/25 00:00 04/11/25 00:00 Potassium Chloride (K-Dur/Klor-Con 20meq) 10 meq AD PRN PO POTASSIUM PROTOCOL 03/12/25 00:00 04/11/25 00:00 Potassium Chloride (KCl 10% Elixir 20meq/15ml) 10 meq AD PRN PO POTASSIUM PROTOCOL 03/12/25 00:00 04/11/25 00:00 Sodium Chloride 1,000 ml @ 200 mls/hr Q5H IV 03/12/25 02:30 04/11/25 02:29 03/13/25 08:05 200 MLS/HR DIAGNOSTICS / RADIOLOGY: [ ] ASSESSMENT: STEMI s/p cardiac cath (normal coronaries no evidence of STEMI ) POA Acute hypoxemic respiratory failure with pulmonary edema POA Acute CHF POA Severe hypokalemia POA Hyponatremia POA Acute kidney injury POA Severe hypercalcemia POA Severe hypomagnesemia POA Protein calorie malnutrition POA Possible pancreatitis POA Uncontrolled diabetes POA Hypertension POA Obesity POA Sepsis POA Acute complicated urinary tract infection POA Acute metabolic encephalopathy multifactorial POA Status post fall x2 at home POA PLAN: Patient admitted to the ICU CT scan of the chest showing extensive metastatic disease to the lung bilaterall y. CT scan of the abdomen showing extensive disease also to the intraperitoneal with peritoneal carcinomatosis. Long discussion by Hematology done with family members, patient made not going to survive long, advanced directive discussed, signed DNR/DNI, requested with the hospice services, case management consulted. NEURO: Minimize central acting medications as possible. Fall Precautions. Well lighted room through the day and minimize interruptions through the night to prevent acute delirium. PULMONARY: Supplemental 02 as needed BiPAP as necessary, for respiratory distress Titrate Fio2 to keep Spo2 > or = 90% DuoNebs and CPT as needed IS hourly while awake for pulmonary hygiene prn Out of bed to chair as tolerated Maintain aspiration precautions at all times CARDIOVASCULAR: Follow hemodynamics. Vital signs per facility protocol GI & NUTRITION: Continue nutritional support Aspirations precautions Prokinetic agents and laxatives as needed KIDNEYS & ELECTROLYTES: Strict monitoring of intake and output Daily weights Avoid nephrotoxic agents Monitor electrolytes and replace as needed Goal urine output of 30mL/hr or 0.5mL/kg/hr Medications to be dosed according to renal function. Avoid contrast if possible ENDOCRINE: Maintain blood glucose between 100-180 at all times. Insulin sliding scale for blood glucose management Hypoglycemia and hyperglycemia protocol in place INFECTIOUS DISEASE: Trend temperature, WBC and procalcitonin level Follow cultures, deescalate antibiotics as soon as possible. Panculture if new onset fever HEMATOLOGY & COAGULATION: Monitor H&H. Keep Hgb > 7 Transfuse 1 unit of PRBC for Hgb < 7 Transfuse 1 pack of platelets of platelets < 20, 000 Watch for any signs and symptoms of bleeding SKIN: Pressure ulcer prevention per facility protocol Specialty mattress as needed ORTHO/REHAB Continue PT/OT PRN: MEDICATIONS Tylenol 650 mg po every 4 hrs for fever zofran 4 mg IV every 6 hrs for n/v Hydralazine 5 mg IV every 4 hrs systolic pressure > 160 bowel regiment: lactulose 20 gm PO BID PRN constipation Supportive measures: Continue GI and DVT prophylaxis Disposition: Case management consulted for hospice All questions answered time spent: > 35 min JOSEPH JUAREZ MD Mar 13, 2025 10:58
--- NOTE | 2025-03-13 11:27 | NUR ---
HOSPICE SW met with girlfriend and family in room in regards to hospice referral. Family was agreeable to services and stated that Dr. Whyte suggested GIP services. Did inform family that clinicals will be sent to [facility] for GIP so that they can evaluate pt to see if she meet criteria for services. Did inform family to consider back up plan in the event she does not meet. Family stated they had thought about hospice in [place] however dr felt that in-patient would be best. [facility] faxed clinicals to [facility] [phone]. TRISH spoke with Nery Johnston RN dungeon master [phone] who stated that they will be reaching out to family.
--- NOTE | 2025-03-13 11:40 | PN ---
[facility] PROGRESS NOTE Date Patient Seen: Mar 13, 2025 Time of Visit: 12:40 Supervising Physician: [ DAVIS HYATT MD ] Consulting Physician: Hospitalist Outpatient Specialists: [ ] Inpatient Consults: Cardiology PROBLEM LIST: Acute hypoxic respiratory failure, chest x-ray showed pulmonary edema, POA Acute metabolic encephalopathy, POA CT HEAD NEG, likely from hypercalcemia Acute kidney injury, POA Ground level fall, two falls at home, without loss of consciousness, POA STEMI, status post cardiac catheterization, no intervention done with Dr. English Hypertension, POA Hypercalcemia, POA Hypokalemia, POA Hyponatremia, POA Hypomagnesemia, POA Electrolyte abnormality, POA Acute pancreatitis, POA Hyperlipidemia, POA Severe sepsis, POA Acute complicated cystitis, POA DM type 2, with hyperglycemia, poorly controlled, POA Morbid obesity, BMI of 35.8, POA HX of untreated cervical cancer INTERVAL HISTORY: 54-year-old female with past medical history of hypertension, hyperlipidemia, DM type 2, morbid obesity,untreated uterine cancer (15years as per bystander) presented to ED with complaints of generalized body weakness, diffuse abdominal pain , confusion and was found to have ST elevations in lead V5 , V6, with ST depressions in leads 2,3,AVF She underwent emergent left heart catheterization by Dr English on 03.11.25 which revealed normal coronary arteries. CXR showed bilateral extensive fluffy infiltrates, however, BNP was [place] . [place] [address], sodium of 132, potassium of 2.4, magnesium of 1.2, and calcium level of 19.6, BUN of 19, and creatinine level of 2.0. Her lactic acid was elevated at 4.1, and lipase was 480. Her COVID and flu tests were negative, however her UA showed urinary tract infection. CT abdomen, pelvis and chest showed features suggestive of Acute pancreatitis , metastatic disease suspected to lungs ,retroperitoneum, peritoneum and peritoneal carcinomatosis . She is admitted to ICU for further evaluation and management of STEMI, acute kidney injury, acute metabolic encephalopathy,malignant hypercalcemia , multiple electrolyte abnormality, severe sepsis, urinary tract infection, and possible acute pancreatitis. 03.12.25: Patient remains confused. She is oriented to person , but not to time and place . She is NPO and is being treated with IV NS @150 ml/hour .CT head is unremarkable Calcium levels down to 17.6. Oncology is consulted for further recommendations on managing hypercalcemia and underlying malignancy . She is placed on CPAP and continues on IV Doxycycline , Vanco, Zosyn, Solumedrol .Pending Bone scan , respiratory, urine and blood culture. Patients girl friend was at the bedside - and I informed the diagnosis, the poor prognosis and plan of care with her and she confirms understanding 03/13/25- . Patient continues encephalopathic. Confused alert and oriented to name only. She is ill appearing. mild resp distress. Oncologist has been consulted and he discussed findings with patient's family. Per Oncology patient is not a candidate for any chemotherapy at this time. He recommended for the patient to and leads be DNR and DNI in possibly hospice. This morning family members opted for DNR and DNI and hospice. financial services internship was consulted for GIP evaluation. Patient refusing any further vital signs or labs to be drawn. REVIEW OF SYSTEMS: Unable to obtain due to alteration in mental status PHYSICAL EXAM: GENERAL: Confused, but calm HEENT: EOMI, Sclera non icteric, moist mucosa NECK: Supple, no JVD, trachea midline LUNGS: Coarse bilateral lung sounds HEART: Regular rate and rhythm. Normal S1 and S2, without murmurs ABD: Very tender abdomen EXT: No clubbing cyanosis or edema NEURO: Confused Vital Signs (last 8hr) Date Time Temp Pulse Resp B/P (MAP) Pulse Ox O2 Delivery O2 Flow Rate FiO2 03/13/25 11:00 68 16 104/52 94 Nasal Cannula 5.0 03/13/25 10:00 69 17 108/57 94 Nasal Cannula 5.0 03/13/25 09:00 68 18 101/47 95 Nasal Cannula 5.0 03/13/25 08:00 93 Nasal Cannula* 5 40 03/13/25 08:00 98.8 72 18 98/55 94 Nasal Cannula 5.0 03/13/25 07:00 93 19 128/79 98 Nasal Cannula 5.0 03/13/25 06:51 92 20 N/Cannula Low lpm 4.0 36 03/13/25 06:00 101 19 136/54 96 03/13/25 05:00 108 20 132/44 94 LABS: Hematology Labs: Test 03/13/25 03:55 03/12/25 05:14 03/11/25 21:47 Range/Units White Blood Count 19.2 H 4.8-10.8 K/uL Red Blood Count 4.52 4.00-5.50 MIL/uL Hemoglobin 13.2 12.0-16.0 g/dL Hematocrit 38.5 36-48 % Mean Corpuscular Volume 85.2 79-99 fL Mean Corpuscular Hemoglobin 29.2 27.0-33.0 pg Mean Corpuscular Hemoglobin Concent 34.3 32.0-36.0 g/dL Red Cell Distribution Width 13.2 11.0-15.5 % Platelet Count 288 130-400 K/uL Mean Platelet Volume 10.6 H 7.5-10.5 fL Nucleated Red Blood Cells 0.0 0.0-0.19 % Immature Granulocyte % (Auto) 0.6 0-1 % Neutrophils (%) (Auto) 91.2 H 40.0-77.0 % Lymphocytes (%) (Auto) 3.5 L 21.0-51.0 % Monocytes (%) (Auto) 4.5 3.0-13.0 % Eosinophils (%) (Auto) 0.1 0.0-8.0 % Basophils (%) (Auto) 0.1 0.0-5.0 % Neutrophils # (Auto) 15.7 H 1.8-7.7 K/uL Lymphocytes # (Auto) 0.6 L 1.0-4.8 K/uL Monocytes # (Auto) 0.8 0.1-1.0 K/uL Eosinophils # (Auto) 0.02 0.00-0.70 K/uL Basophils # (Auto) 0.02 0.00-0.20 K/uL Absolute Immature Granulocyte (auto 0.11 0-1 K/uL White Cell Morphology Comment See comments Chemistry Labs: Test 03/13/25 03:55 03/12/25 20:42 03/12/25 17:10 03/12/25 13:36 Range/Units Sodium Level 139 136-145 mmol/L Potassium Level 3.4 L 3.5-5.1 mmol/L Chloride Level 105 101-111 mmol/L Carbon Dioxide Level 25 21-32 mmol/L Blood Urea Nitrogen 37 H 7-18 mg/dL Creatinine 2.7 H 0.5-1.0 mg/dL Glomerular Filtration Rate Calc 21 >90 mL/min Random Glucose 118 H 70-105 mg/dL Total Calcium 18.9 *H 8.5-10.1 mg/dL Whole Blood Glucose 110 70-110 MG/DL Lactic Acid Level 3.3 H 0.8-2.5 mmol/L Magnesium Level 2.80 H 1.80-2.40 mg/dL Troponin I High Sensitivity 50 4-50 ng/L Lipase 191 H 16-77 U/L Test 03/12/25 08:49 03/12/25 05:14 Range/Units Total Bilirubin 0.8 0.2-1.0 mg/dL Aspartate Amino Transf (AST/SGOT) 42 H 10-37 U/L Alanine Aminotransferase (ALT/SGPT) 26 12-78 U/L Alkaline Phosphatase 97 50-136 U/L Total Protein 6.4 6.0-8.3 g/dL Albumin 2.4 L 3.5-5.0 g/dL Ionized Calcium 2.35 *H 1.15-1.33 MMOL/L Phosphorus Level 3.4 2.5-4.9 mg/dL Direct Bilirubin 0.3 0.0-0.3 mg/dL Ammonia 32 11-32 umol/L Total Creatine Kinase 86 # 21-232 U/L B-Type Natriuretic Peptide 64 0-100 pg/mL Amylase Level 189 #H 25-115 U/L CA 125 Antigen 186.0 H 0.0-38.1 U/mL Thyroid Stimulating Hormone (TSH) 0.40 # 0.36-3.74 uIU/mL Parathyroid Hormone (Intact) 13.5 15-65 pg/mL Coagulation Labs: Test 03/11/25 21:47 Range/Units Prothrombin Time 13.0 H 9.6-11.6 SEC Prothromb Time International Ratio 1.25 H 0.85-1.15 Activated Partial Thromboplast Time 21.7 L 26.3-35.5 SEC DIAGNOSTICS / RADIOLOGY RESULTS: [IMAGING REPORT Signed PATIENT: SULMA MENESES MR#: [id number] : 1970 SEX: F AGE: 54 LOCATION: 2BH ORDER [id number] STATUS: ADM IN REPORT#: [id number] SERVICE [id number] REASON: hypercalcemia, r/o metastasis ORDERING PHYSICIAN: JENNIFER QUACH PROCEDURE: BONE WBD - NM BONE SCAN WHOLE BODY Exam Type: NM BONE SCAN WHOLE BODY Clinical Information: hypercalcemia, r/o metastasis Comparison: None RADIOPHARMACEUTICAL: Intravenous administration of 25 mCi of Tc-99m MDP . TECHNIQUE: Three-hour delayed anterior and posterior whole-body and upper extremities and lateral views of the skull and posterior obliques of the thorax were obtained. The distal humeri, the elbows, and the proximal and mid forearms are incompletely included in the films. FINDINGS: There is adequate, homogenous, and symmetric radiopharmaceutical uptake through out the axial and appendicular skeleton . Biodistribution in soft tissues and kidneys is unremarkable. IMPRESSION: No evidence of metastatic disease. DICTATED BY: BALA GARCIA MD DATE: 03/12/251635 ELECTRONICALLY SIGNED BY: BALA GARCIA MD DATE: 03/12/251638 ] PLAN pt was evaluated by social sciences lecturer for possible hospice [facility] will follow up with pt. DNR/DNI NEURO: Minimize central acting medications as possible. Fall Precautions. Well lighted room through the day and minimize interruptions through the night to prevent acute delirium. PULMONARY: Supplemental 02 as needed Titrate Fio2 to keep Spo2 > or = 90% DuoNebs and CPT as needed IS hourly while awake for pulmonary hygiene CARDIOVASCULAR: Follow hemodynamics. Titrate vasopressor to keep MAP >65 or systolic blood pressure >95mmHg DIPS: None LINES: PIV GI & NUTRITION: NPO Continue nutritional support Aspirations precautions Prokinetic agents and laxatives as needed KIDNEYS & ELECTROLYTES: Strict monitoring of intake and output Daily weights Avoid nephrotoxic agents Monitor electrolytes and replace as needed Goal urine output of 30mL/hr or 0.5mL/kg/hr ENDOCRINE: Maintain blood glucose between 100-180 at all times. Insulin sliding scale for blood glucose management INFECTIOUS DISEASE: Trend temperature. Sprague-culture if febrile. Micro: [ ] Antibiotics: [ ] HEMATOLOGY & COAGULATION: Monitor H&H. Keep Hgb > 7 Transfuse 1 unit of PRBC for Hgb < 7 Transfuse 1 pack of platelets of platelets < 20, 000 Watch for any signs and symptoms of bleeding SKIN: Pressure ulcer prevention per facility protocol Rehab: PT/OT Prophylaxis: GI: PPI DVT: Bilateral SCDs Code Status: Full Resuscitation Disposition: ICU Other: Total patient care time exceeds 35 minutes excluding all procedures. ATTESTATION BY PHYSICIAN I have evaluated the patient chart, medical records, and spoke with appropriate staff. I reviewed the documentation, medical decision making, and treatment plan as noted by the mid-level provider above. I agree with the findings and plan of care. Davis Hyatt MD, [facility] Mar 13, 2025 11:40
--- NOTE | 2025-03-13 15:16 | PN ---
[facility] CARDIOLOGY PROGRESS NOTE Date Patient Seen: Mar 13, 2025 Time of Visit: 15:06 Interval History: This 54-year-old [place] female with a history of hypertension, hyperlipidemia, obesity, type 2 diabetes mellitus, and cervical cancer untreated in the past (family members report that due to financial reasons they could not afford the medical care) presented to the ER with generalized body weakness, diffuse abdominal pain, altered mental status, and an abnormal EKG with ST segment elevations in V5 and V6 and reciprocal ST depressions in leads two, three, and AVF. Emergent cardiac catheterization for possible STEMI assessment demonstrated normal coronary arteries and serial troponins were negative and then the nonspecific range at 50-60. She has been found to have metastatic (presumed cervical cancer) with CT of the abdomen, pelvis, and chest demonstrating changes his pancreatitis, and metastases to the lung, retroperitoneum, and peritoneum. Family members and the patient have accepted hospice therapy and plans for discharge with hospice care. Physical Examination: GENERAL: Generalized weakness. Complaints of diffuse abdominal pain. Appears chronically ill. HEAD: Normal with no signs of head trauma. EYES: PERRLA, EOMI, conjunctiva and sclera normal. NECK: Supple without JVD. There is no tenderness, lymphadenopathy, or masses. No thyromegaly. Normal carotid upstrokes without bruits. LUNGS: Clear breath sounds bilaterally. No wheezes, or rhonchi. HEART: Normal rate and rhythm. Normal S1 and S2 without murmurs, gallop or rub. VASC: Peripheral pulses +2 bilaterally. EXT: No clubbing, cyanosis or edema. NEURO: Awake, alert, and oriented x3. No focal neurological deficits noted. Laboratory: Hematology Labs: Test 03/13/25 03:55 03/12/25 05:14 03/11/25 21:47 Range/Units White Blood Count 19.2 H 4.8-10.8 K/uL Red Blood Count 4.52 4.00-5.50 MIL/uL Hemoglobin 13.2 12.0-16.0 g/dL Hematocrit 38.5 36-48 % Mean Corpuscular Volume 85.2 79-99 fL Mean Corpuscular Hemoglobin 29.2 27.0-33.0 pg Mean Corpuscular Hemoglobin Concent 34.3 32.0-36.0 g/dL Red Cell Distribution Width 13.2 11.0-15.5 % Platelet Count 288 130-400 K/uL Mean Platelet Volume 10.6 H 7.5-10.5 fL Nucleated Red Blood Cells 0.0 0.0-0.19 % Immature Granulocyte % (Auto) 0.6 0-1 % Neutrophils (%) (Auto) 91.2 H 40.0-77.0 % Lymphocytes (%) (Auto) 3.5 L 21.0-51.0 % Monocytes (%) (Auto) 4.5 3.0-13.0 % Eosinophils (%) (Auto) 0.1 0.0-8.0 % Basophils (%) (Auto) 0.1 0.0-5.0 % Neutrophils # (Auto) 15.7 H 1.8-7.7 K/uL Lymphocytes # (Auto) 0.6 L 1.0-4.8 K/uL Monocytes # (Auto) 0.8 0.1-1.0 K/uL Eosinophils # (Auto) 0.02 0.00-0.70 K/uL Basophils # (Auto) 0.02 0.00-0.20 K/uL Absolute Immature Granulocyte (auto 0.11 0-1 K/uL White Cell Morphology Comment See comments Chemistry Labs: Test 03/13/25 03:55 03/12/25 20:42 03/12/25 17:10 03/12/25 13:36 Range/Units Sodium Level 139 136-145 mmol/L Potassium Level 3.4 L 3.5-5.1 mmol/L Chloride Level 105 101-111 mmol/L Carbon Dioxide Level 25 21-32 mmol/L Blood Urea Nitrogen 37 H 7-18 mg/dL Creatinine 2.7 H 0.5-1.0 mg/dL Glomerular Filtration Rate Calc 21 >90 mL/min Random Glucose 118 H 70-105 mg/dL Total Calcium 18.9 *H 8.5-10.1 mg/dL Whole Blood Glucose 110 70-110 MG/DL Lactic Acid Level 3.3 H 0.8-2.5 mmol/L Magnesium Level 2.80 H 1.80-2.40 mg/dL Troponin I High Sensitivity 50 4-50 ng/L Lipase 191 H 16-77 U/L Test 03/12/25 08:49 03/12/25 05:14 Range/Units Total Bilirubin 0.8 0.2-1.0 mg/dL Aspartate Amino Transf (AST/SGOT) 42 H 10-37 U/L Alanine Aminotransferase (ALT/SGPT) 26 12-78 U/L Alkaline Phosphatase 97 50-136 U/L Total Protein 6.4 6.0-8.3 g/dL Albumin 2.4 L 3.5-5.0 g/dL Ionized Calcium 2.35 *H 1.15-1.33 MMOL/L Phosphorus Level 3.4 2.5-4.9 mg/dL Direct Bilirubin 0.3 0.0-0.3 mg/dL Ammonia 32 11-32 umol/L Total Creatine Kinase 86 # 21-232 U/L B-Type Natriuretic Peptide 64 0-100 pg/mL Amylase Level 189 #H 25-115 U/L CA 125 Antigen 186.0 H 0.0-38.1 U/mL Thyroid Stimulating Hormone (TSH) 0.40 # 0.36-3.74 uIU/mL Parathyroid Hormone (Intact) 13.5 15-65 pg/mL Coagulation Labs: Test 03/11/25 21:47 Range/Units Prothrombin Time 13.0 H 9.6-11.6 SEC Prothromb Time International Ratio 1.25 H 0.85-1.15 Activated Partial Thromboplast Time 21.7 L 26.3-35.5 SEC Diagnostics / Radiology: 2D echo 03/12/2025: Conclusion LVEF is 55-60%. Impression and Plan: No evidence of STEMI: Normal coronary arteries by cardiac catheterization 03/11/2025: -no specific cardiac recommendations -EKG changes can be explained by metabolic disturbances -no evidence of pericardial effusion on 2D echo 03/12/2025 Normal LV systolic function with a out evidence of pericardial effusion by 2D echo 03/12/2025 with LVEF of 55%: -no specific cardiac recommendations Metastatic cervical CA with metastases to lung and peritoneum: -DNR status, currently with plans for hospice enrollment -cardiology will sign off and re-evaluate upon request Comorbidities: Hypertension Hyperlipidemia Obesity Type 2 diabetes mellitus MISTI FINCH MD Mar 13, 2025 15:16
--- NOTE | 2025-03-13 22:42 | PN ---
This is a 54-year-old female with past medical history of hypertension, diabetes, depression and bipolar who presents to the ED for complaints of lower abdominal pain associated nausea ,vomiting, generalized body weakness and shortness of breaths which started three days ago.Patient also reports she fell a week ago and she was on her abdomen at the laundry mat and did not seek medical help and 2 days ago she fell again towards her left side hitting her left side face and left flank area due to body weakness.2 days ago patient started complaining of left sided body pain,dizziness and started being confused and having slurry speech as per friend who was at bedside during my evaluation.Friend says she lives with patient.As per friend patient has been seen by a explosive expert in [place] Dr. Ramon Jimenez and an echocardiogram and a 24 hour holter monitor was done because patient has also been having on and off chest pain for 2 months now she said.Upon ER arrival an EKG was done and showed an ST elevation on V5 and V6 and ST depressions on Lead 2 3 and AVF consistent with STEMI and code STEMI was activated per ER and patient was taken to lab courier for a left heart catheterization per and findings revealed normal coronary arteries and no evidence of ST elevation HI and patient was transferred to ICU. CT scan of the chest showing extensive metastatic disease to the lung bilaterally. CT scan of the abdomen showing extensive disease also to the intraperitoneal with peritoneal carcinomatosis. Her girlfriend was in the room. I was told that she have history of uterine cancer/cervical cancer long time ago with the patient never treated. PHYSICAL EXAM GENERAL APPEARANCE: The patient is awake, alert, and oriented, in no acute cardiopulmonary distress. NEUROLOGICAL: Cranial nerves II-XII grossly intact. Motor is 5/5 in bilateral upper and lower extremities proximal to distal. No sensory deficits. HEENT: Face is symmetric. Pupils are equal and reactive. Extraocular movements are intact. NECK: Supple. No JVD. No thyromegaly. No submental, submandibular, pre- /postauricular, occipital or supraclavicular lymphadenopathy. CHEST: Normal chest expansion. No Telemetry. LUNGS: Absence of any rales, rhonchi or any wheezing. CARDIOVASCULAR: Regular. S1 and S2 normal. No appreciable rubs, murmurs or gallops. ABDOMEN: Abdominal tenderness located around lower abdominal quadrant on palpation Soft and nondistended. There is no rebound, voluntary guarding, or rigidity. : Deferred. No Ortega. EXTREMITIES: Non-edematous and not cyanotic. No clubbing. Good capillary refill. SKIN: No skin breakdown. Assessment 1.CT scan of the chest showing extensive metastatic disease to the lung bilaterally. 2. CT scan of the abdomen showing extensive disease also to the intraperitoneal with peritoneal carcinomatosis. 3. History of cervical/uterus cancer the patient never treated more than 10 years ago. 4. Respiratory failure 5. Diabetes mellitus 6. Hypertension Plan 1. I have long discussion with the girlfriend who was in the room. The patient is not alert or oriented from my point review. I explained the result of CT scan of chest and abdomen pelvis. I showed her the images. 2. She is disease girlfriend agree on DNR/DNI 3. She agree on comfort care and hospice 4. Will stop for labs and vitals I will sign off this case at this time Vitals/Labs Vital Signs Date Time Temp Pulse Resp B/P (MAP) Pulse Ox O2 Delivery O2 Flow Rate FiO2 03/13/25 11:00 68 16 104/52 94 Nasal Cannula 5.0 03/13/25 08:00 40 03/13/25 08:00 98.8 Laboratory Tests 03/13/25 03:55 Medications Current Medications Sodium Chloride 1,000 ml @ 0 mls/hr ONCE ONCE IV Last administered on 03/11/25at 22:25; Start 03/11/25 at 22:00; Stop 03/11/25 at 22:01; Status DC Ondansetron HCl 4 mg ONCE ONCE IVP Last administered on 03/11/25at 22:25; Start 03/11/25 at 22:00; Stop 03/11/25 at 22:01; Status DC Ceftriaxone Sodium 1 gm ONCE ONCE IVPB Last administered on 03/11/25at 22:26; Start 03/11/25 at 22:30; Stop 03/11/25 at 22:31; Status DC Aspirin 325 mg ONCE ONCE PO Last administered on 03/11/25at 22:34; Start 03/11/25 at 22:30; Stop 03/11/25 at 22:32; Status DC Heparin Sodium (Porcine) 5,000 unit STK-MED ONCE .ROUTE; Start 03/11/25 at 22:37; Stop 03/11/25 at 22:38; Status DC Heparin Sodium (Porcine) 10,000 unit ONCE IVP; Start 03/11/25 at 23:00; Stop 03/11/25 at 22:45; Status DC Heparin Sodium (Porcine) 10,000 unit ONCE ONCE IV Last administered on 03/11/25at 22:53; Start 03/11/25 at 23:00; Stop 03/11/25 at 23:01; Status DC Magnesium Sulfate 50 ml @ 0 mls/hr PROTOCOL IV Last administered on 03/12/25at 08:58; Start 03/11/25 at 23:00; Stop 03/13/25 at 17:22; Status DC Potassium Chloride 100 ml @ 100 mls/hr ONCE ONCE IV; Start 03/11/25 at 23:00; Stop 03/11/25 at 22:55; Status DC Potassium Chloride 20 meq ONCE ONCE PO Last administered on 03/11/25at 22:50; Start 03/11/25 at 23:00; Stop 03/11/25 at 23:01; Status DC Potassium Chloride 100 ml @ 50 mls/hr ONCE ONCE IV Last administered on 03/11/25at 22:50; Start 03/11/25 at 23:00; Stop 03/12/25 at 00:59; Status DC Potassium Chloride 20 meq STK-MED ONCE PO; Start 03/11/25 at 22:48; Stop 03/11/25 at 22:53; Status DC Potassium Chloride 100 ml @ As Directed STK-MED ONCE IV; Start 03/11/25 at 22:48; Stop 03/11/25 at 22:54; Status DC Lidocaine HCl 20 ml STK-MED ONCE .ROUTE; Start 03/11/25 at 22:52; Stop 03/11/25 at 22:54; Status DC Iohexol 35,000 mg STK-MED ONCE IV; Start 03/11/25 at 22:52; Stop 03/11/25 at 22:54; Status DC Heparin Sodium (Porcine) 10,000 unit STK-MED ONCE .ROUTE; Start 03/11/25 at 22:52; Stop 03/11/25 at 22:54; Status DC Heparin Sodium/ Sodium Chloride 1,000 ml @ As Directed STK-MED ONCE IV; Start 03/11/25 at 22:52; Stop 03/11/25 at 22:54; Status DC Fentanyl Citrate 100 mcg STK-MED ONCE .ROUTE; Start 03/11/25 at 23:11; Stop 03/11/25 at 23:11; Status DC Midazolam HCl 2 mg STK-MED ONCE .ROUTE; Start 03/11/25 at 23:11; Stop 03/11/25 at 23:11; Status DC Hydralazine HCl 20 mg STK-MED ONCE .ROUTE; Start 03/11/25 at 23:25; Stop 03/11/25 at 23:26; Status DC Dextrose 50 ml AD PRN IV; Start 03/12/25 at 00:00; Stop 03/13/25 at 17:22; Status DC Glucagon 1 mg AD PRN IM; Start 03/12/25 at 00:00; Stop 03/13/25 at 17:22; Status DC Furosemide 40 mg Q12H IV; Start 03/12/25 at 00:00; Stop 03/12/25 at 03:16; Status DC Potassium Chloride 100 ml @ 100 mls/hr AD PRN IV; Start 03/12/25 at 00:00; Stop 03/13/25 at 17:22; Status DC Potassium Chloride 10 meq AD PRN PO; Start 03/12/25 at 00:00; Stop 03/13/25 at 17:22; Status DC Potassium Chloride 10 meq AD PRN PO; Start 03/12/25 at 00:00; Stop 03/13/25 at 17:22; Status DC Ondansetron HCl 4 mg Q6H PRN IV; Start 03/12/25 at 00:30; Stop 03/13/25 at 17:22; Status DC Famotidine 20 mg Q48H IV Last administered on 03/12/25at 08:57; Start 03/12/25 at 09:00; Stop 03/12/25 at 09:56; Status DC Potassium Chloride 100 ml @ 50 mls/hr AD PRN IV Last administered on 03/12/25at 05:48; Start 03/12/25 at 00:30; Stop 03/13/25 at 17:22; Status DC Magnesium Sulfate 50 ml @ 0 mls/hr PROTOCOL PRN IV; Start 03/12/25 at 00:30; Stop 03/12/25 at 00:18; Status DC Insulin Human Regular INSULIN SLIDING SCAL... ACHS SQ; Start 03/12/25 at 07:30; Stop 03/13/25 at 17:22; Status DC Dextrose 50 ml AD PRN IV; Start 03/12/25 at 00:30; Stop 03/12/25 at 00:18; Status DC Glucagon 1 mg AD PRN IM; Start 03/12/25 at 00:30; Stop 03/12/25 at 00:18; Status DC Sodium Chloride 1,000 ml @ 200 mls/hr Q5H IV Last administered on 03/13/25at 11:22; Start 03/12/25 at 02:30; Stop 03/13/25 at 17:22; Status DC Piperacillin Sod/ Tazobactam Sod 3.375 gm Q8H IV Last administered on 03/13/25at 10:11; Start 03/12/25 at 03:00; Stop 03/13/25 at 17:22; Status DC Vancomycin HCl 1.25 gm ONCE ONCE IV Last administered on 03/12/25at 04:57; Start 03/12/25 at 03:30; Stop 03/12/25 at 03:31; Status DC Heparin Sodium (Porcine) 5,000 unit Q12H SQ Last administered on 03/13/25at 08:06; Start 03/12/25 at 07:30; Stop 03/13/25 at 17:22; Status DC Metoprolol Tartrate 12.5 mg BID PO; Start 03/12/25 at 09:00; Stop 03/13/25 at 17:22; Status DC Metoprolol Tartrate 5 mg ONCE ONCE IV Last administered on 03/12/25at 08:58; Start 03/12/25 at 09:00; Stop 03/12/25 at 09:01; Status DC Dexmedetomidine/ Sodium Chloride 400 mcg PROTOCOL PRN IV Last administered on 03/13/25at 11:23; Start 03/12/25 at 10:00; Stop 03/13/25 at 17:22; Status DC Doxycycline Hyclate 250 ml @ 125 mls/hr Q12H IV Last administered on 03/13/25at 10:11; Start 03/12/25 at 10:00; Stop 03/13/25 at 17:22; Status DC Pantoprazole Sodium 40 mg BID IVP Last administered on 03/13/25at 08:04; Start 03/12/25 at 21:00; Stop 03/13/25 at 17:22; Status DC Methylprednisolone Sodium Succinate 40 mg BID IVP Last administered on 03/13/25at 08:04; Start 03/12/25 at 10:00; Stop 03/13/25 at 17:22; Status DC Calcitonin 400 units BID SQ; Start 03/12/25 at 21:00; Stop 03/12/25 at 16:02; Status DC Pamidronate Disodium 90 mg/ Sodium Chloride 1,000 ml @ 41.667 mls/ hr ONCE ONCE IV Last administered on 03/12/25at 16:44; Start 03/12/25 at 16:00; Stop 03/13/25 at 15:59; Status DC Norepinephrine 250 ml @ 0 mls/hr AD PRN IV; Start 03/12/25 at 17:00; Stop 03/13/25 at 17:22; Status DC Sodium Chloride 4 ml STK-MED ONCE IH Last administered on 03/12/25at 19:31; Start 03/12/25 at 18:22; Stop 03/12/25 at 18:23; Status DC Sodium Chloride 4 ml STK-MED ONCE IH Last administered on 03/12/25at 23:34; Start 03/12/25 at 23:04; Stop 03/12/25 at 23:04; Status DC Sodium Chloride 4 ml STK-MED ONCE IH Last administered on 03/13/25at 06:48; Start 03/13/25 at 05:58; Stop 03/13/25 at 05:58; Status DC MAMIE BARRETO MD Mar 13, 2025 22:42
== END 2025-03-13 16:31 | disposition hospice, inpatient (51) | DRG 871 ==
LOC: EDH 20:41 → EDHIP 22:25 → 2BH 03-12 01:00
PROVIDERS: ADMIT Internal Medicine; ATTEND Internal Medicine
PROC: 4A023N7 Measurement of Cardiac Sampling and Pressure, Left Heart, Percutaneous Approach (ICD-10-PCS; 2025-03-11)
PROC: B2111ZZ Fluoroscopy of Multiple Coronary Arteries using Low Osmolar Contrast (ICD-10-PCS; 2025-03-11)
PROC: 5A09357 Assistance with Respiratory Ventilation, Less than 24 Consecutive Hours, Continuous Positive Airway Pressure (ICD-10-PCS; principal; 2025-03-12)
DX: A41.9 Sepsis, unspecified organism (principal); G93.41 Metabolic encephalopathy; J96.01 Acute respiratory failure with hypoxia; K85.90 Acute pancreatitis without necrosis or infection, unspecified; J18.9 Pneumonia, unspecified organism; N17.9 Acute kidney failure, unspecified; E87.1 Hypo-osmolality and hyponatremia; N30.00 Acute cystitis without hematuria; E46 Unspecified protein-calorie malnutrition; R65.20 Severe sepsis without septic shock; Z66 Do not resuscitate; E83.52 Hypercalcemia; E87.6 Hypokalemia; Z20.822 Contact with and (suspected) exposure to COVID-19; E83.42 Hypomagnesemia; E78.5 Hyperlipidemia, unspecified; E11.65 Type 2 diabetes mellitus with hyperglycemia; F32.A Depression, unspecified; I11.0 Hypertensive heart disease with heart failure; I50.9 Heart failure, unspecified; Z68.36 Body mass index [BMI] 36.0-36.9, adult; Z79.84 Long term (current) use of oral hypoglycemic drugs; Z82.49 Family history of ischemic heart disease and other diseases of the circulatory system; Z85.41 Personal history of malignant neoplasm of cervix uteri; Z87.891 Personal history of nicotine dependence
CPT/HCPCS: 36415; 36600; 70450; 71045; 71250; 72125; 74176; 76700; 78306; 80048; 80053; 80076; 80305; 81001; 81025; 82140; 82150; 82330; 82550; 82803; 82948; 83605; 83690; 83735; 83880; 83970; 84100; 84443; 84484; 85025; 85027; 85347; 85610; 85730; 86304; 87040; 87086; 87186; 87426; 87641; 87804; 93005; 93306; 93356; 93454; 94640; 94660; 96374; 96375; 99156; 99157; 99291; A9503; C1760; C1894; G0378; J0360; J0696; J1644; J2250; J2405; J2430; J2470; J2543; J2919; J3010; J3475; J3480; J3490; J7030; Q9967; 3370; Q9965

== ENCOUNTER 2025-03-13 16:30 | Inpatient (IN) | payer OTHER ==
[~2025-03-13 16:30] MED LIST: CELE-146 PO; ERGO500093 PO; FERR324T12 PO; TRAN650T5 PO; VENL75CA97 PO
[2025-03-13 18:00] VITALS: O2SAT 93
[2025-03-13] MEDS ORDERED: GLYCOPYRROLATE 0.2 MG/ML 5 ML VIAL IVP SCH (18:00)
[2025-03-13] MEDS ORDERED: BisaCODYL 10 MG SUPP.RECT RC PRN (18:00)
[2025-03-13] MEDS ORDERED: LORazepam 2 MG/ML 1 ML VIAL IVP PRN (18:00)
[2025-03-13] MEDS ORDERED: ondanSETRON 4MG INJ IVP PRN (18:00)
[2025-03-13] MEDS: hydroMORPHone 1 MG INJ IVP PRN (18:10)
[2025-03-13] MEDS ORDERED: [UNRECOGNIZED DRUG - REMARK] MISC SCH (18:30)
[2025-03-13 20:14] VITALS: RESP 12
[2025-03-13] MEDS: diazePAM 5 MG/ML 2 ML SYG IV PRN (21:15)
[2025-03-14 07:09] VITALS: RESP 12
--- NOTE | 2025-03-14 08:29 | DS ---
Discharge Summary Hospital Course Summary: Date of service 03/13/2025 This is a 54-year-old female with past medical history of hypertension, diabetes, depression and bipolar who presents to the ED for complaints of lower abdominal pain associated nausea ,vomiting, generalized body weakness and shortness of breaths which started three days ago.Patient also reports she fell a week ago and she was on her abdomen at the laundry mat and did not seek medical help and 2 days ago she fell again towards her left side hitting her left side face and left flank area due to body weakness.2 days ago patient sta rted complaining of left sided body pain,dizziness and started being confused and having slurry speech as per friend who was at bedside during my evaluation.Friend says she lives with patient.As per friend patient has been seen by a rock drill operator in [place] Dr. Ramon Jimenez and an echocardiogram and a 24 hour holter monitor was done because patient has also been having on and of f chest pain for 2 months now she said.Upon ER arrival an EKG was done and showed an ST elevation on V5 and V6 and ST depressions on Lead 2 3 and AVF consistent with STEMI and code STEMI was activated per ER and patient was taken to builder's labourer for a left heart catheterization per and findings revealed normal coronary arteries and no evidence of ST elevation NH and patient was transferred to ICU. CT scan of the chest showing extensive metastatic disease to the lung bilaterally. CT scan of the abdomen showing extensive disease also to the intraperitoneal with peritoneal carcinomatosis. Her girlfriend was in the room. I was told that she have history of uterine cancer/cervical cancer long time ago with the patient never treated. 03/13 patient is seen and examined, case discussed with the RN, family decided on inpatient hospice services, case management consulted. Assessment/Plan: final diagnosis 1.CT scan of the chest showing extensive metastatic disease to the lung bilaterally. 2. CT scan of the abdomen showing extensive disease also to the intraperitoneal with peritoneal carcinomatosis. 3. History of cervical/uterus cancer the patient never treated more than 10 years ago. 4. Respiratory failure 5. Diabetes mellitus 6. Hypertension Home Medications: Reported Medications Ferrous Fumarate (Ferrous Fumarate) 324 Mg (106 Mg Iron) Tablet, 324 MG PO DAILY, TAB 03/12/25 Ergocalciferol (Vitamin D2) (Vitamin D2) 1,250 Mcg (29787 Unit) Capsule, 1 CAP PO QWEEK for 28 Days, #4 CAP 0 Refills 03/12/25 Tranexamic Acid (Tranexamic Acid) 650 Mg Tablet, 2 TAB PO TID for 5 Days, #30 TAB 0 Refills 03/12/25 Celecoxib (Celecoxib) 100 Mg Capsule, 1 CAP PO BID for 10 Days, #20 CAP 0 Refills 03/12/25 Venlafaxine HCl (Venlafaxine HCl ER) 75 Mg Cap.er.24h, 1 CAP PO DAILY for 30 Days, #30 CAP 0 Refills 03/12/25 Time spent arranging discharge: 31-60 minutes JOSEPH JUAREZ MD Mar 14, 2025 08:29
--- NOTE | 2025-03-14 08:38 | NUR ---
ZAIN COLLINS Pt was admitted under [facility] with [facility]. Dr Damaris Longoria is Snow Plow Operator and following pt. Claire will make dc arrangements if pt becomes medically sable for transfer Addendum: 03/14/25 at 0842 by EMMIE BARRIOS Amended: Links added.
[2025-03-14 09:00] VITALS: O2SAT 94
--- NOTE | 2025-03-14 10:15 | HP ---
HISTORY AND PHYSICAL Date of Visit: Mar 13, 2025 Time of Visit: 19:15 ADMISSION DATE: Mar 13, 2025 at 16:30 CC: FAILURE TO THRIVE HPI: THIS IS A 54 YR OLD WOMAN WITH HX DM HTN AND BIPOLAR D/O WHO PRESENTED WITH A SUSPECTED STEMI AND FOUND TO HAVE DIFFUSE METASTATIC UTERINE / CERVICAL CANCER WITH LUNG AND INTRAPERITONEAL METASTASIS. SHE IS BEING TRANSITIONED TO COMFORT MEASURES WITH INPATIENT HOSPICE WITH [facility]. PAST MEDICAL HISTORY: Metastatic Uterine / Cervical Cancer Lung and Intraperitoneal and Peritoneal Carcinomatosis Hypertension Diabetes II Bipolar D/O SOCIAL HISTORY: LIVES LOCALLY FAMILY HISTORY: NOT CONTRIBUTORY ^ Allergies: Coded Allergies: No Known Drug Allergies (Verified Allergy, 04/06/13) Discontinued Medications Celecoxib (Celecoxib), 1 CAP PO BID, (Reported) Ergocalciferol (Vitamin D2) (Vitamin D2), 1 CAP PO QWEEK, (Reported) Ferrous Fumarate (Ferrous Fumarate), 324 MG PO DAILY, (Reported) Tranexamic Acid (Tranexamic Acid), 2 TAB PO TID, (Reported) Venlafaxine HCl (Venlafaxine HCl ER), 1 CAP PO DAILY, (Reported) Review of Systems Normal Eyes:, Normal Ear/Nose/Mouth/Throat, Normal Cardiovascular:, Normal Respiratory:, Normal Gastrointestinal:, Normal Genitourinary:, Normal Integum entary:, Normal Musculoskeletal:, Normal Neurological:, Normal Psychological:, Normal Endocrine:, Normal Hematologic/Lymphatic:, Normal Allergic/Immunologic:; Abnormal Constitutional: (PROGRESSIVE WEAKNESS) Additional ROS HISTORY PER FAMILY AT BEDSIDE Physical Exam Vital Signs Vital Signs Date Time Temp Pulse Resp B/P (MAP) Pulse Ox O2 Delivery O2 Flow Rate FiO2 03/13/25 18:00 93 Nasal Cannula* 5 40 03/13/25 20:14 12 Appearance: Other (SEDATED AND RESTING ON O2 PER NC) Eyes: PERRL Ear/Nose/Mouth/Throat: Landmarks WNL, Oropharynx WNL Cardiovascular: Regular Rate Respiratory: Lungs clear G.I.: Normal bowel sounds Musculoskeletal: Abnormal (BED RIDDEN) Neurology: Abnormal (SEDATED BUT RESPONDS TO PAINFUL STIMULI) Psychology: Abnormal (NOT ABLE TO FOLLOW COMMANDS) Assessment/Plan Assessment/Plan ASSESSMENT: THIS IS A 54 YR OLD WOMAN WITH HISTORY OF Metastatic Uterine / Cervical Cancer Lung and Intraperitoneal and Peritoneal Carcinomatosis Hypertension Diabetes II Bipolar D/O SHE PRESENTED WITH FAILURE TO THRIVE DUE TO METASTATIC UTERINE / CERVICAL CANCER PLAN: CODE STATUS ESTABLISHED DNR CONT ANALGESICS AND ANTI EMETICS AND ADJUST NEEDED CONT ANTI ANXIOLYTICS PRN AND ADJUST NEEDED GLYCOPYRROLATE PRN SECRETIONS AND ADJUST NEEDED CONT TERMINAL COMFORT MEASURES AND SUPPORTIVE CARE TEENA EATON MD Mar 14, 2025 10:15
[2025-03-14 12:30] VITALS: BP 115/52; PULSE 102; RESP 19; TEMP 98.4
--- NOTE | 2025-03-14 14:39 | PN ---
Subjective Review of Systems INPATIENT HOSPICE PROGRESS NOTE Date of Visit: Mar 14, 2025 Time of Visit: 14:36 Events since last encounter REMAINS LETHARGIC Subjective POOR HISTORIAN, FAMILY AT BEDSIDE General: No Fever, No Chills, No Night Sweats, No Fatigue, No Malaise, No Appetite, No Other HEENT: No Head Aches, No Visual Changes, No Eye Pain, No Ear Pain, No Dysphasia, No Sinus Congestion, No Post Nasal Drip, No Sore Throat, No Other Pulmonary: No Dyspnea, No Cough, No Pleuritic Chest Pain, No Other Cardiovascular: No: Chest Pain, Palpitations, Orthopnea, Paroxysmal Noc. Dyspnea, Edema, Lt Headedness, Other Gastrointestinal: No: Nausea, Vomiting, Abdominal Pain, Diarrhea, Constipation, Melena, Hematochezia, Other Genitourinary: No Dysuria, No Frequency, No Incontinence, No Hematuria, No Retention, No Other Musculoskeletal: No: other, neck pain, shoulder pain, arm pain, back pain, hand pain, leg pain, foot pain Skin: No Urticaria, No Rash, No Other Neurological: No: Weakness, Numbness, Incoordination, Change in speech, Confusion, Seizures, Other Objective Vitals and I/O Vital Sign (Last 24 Hours) 03/14/25 03/14/25 07:09 09:00 Resp 12 Pulse Ox 94 O2 Delivery Nasal Cannula* O2 Flow Rate 5 FiO2 40 General: Other (SEDATED AND RESTING BUT AROUSABLE TO PAINFUL STIMULI) HEENT: Atraumatic, PERRLA Neck: Supple Lungs: Other (DISTANT BS BILATERALLY) Heart: Regular rate, Regular rhythm Abdomen: Soft Extremities: No edema Neuro: Normal tone Psych/Mental Status: Other (MINIMALLY RESPONSIVE) Results RADIOLOGY: [] EKG: [] Medications Current Medications Hydromorphone HCl 1 mg Q1HR PRN IVP Last administered on 03/14/25at 13:59; Start 03/13/25 at 18:00; Stop 03/18/25 at 17:59 Lorazepam 1 mg Q1H PRN IVP; Start 03/13/25 at 18:00; Stop 03/20/25 at 17:59; Status Cancel Ondansetron HCl 4 mg Q6H PRN IVP; Start 03/13/25 at 18:00; Stop 04/12/25 at 17:59 Acetaminophen 650 mg Q4HPRN PRN RC; Start 03/13/25 at 18:00; Stop 04/12/25 at 17:59 Bisacodyl 10 mg DAILY PRN RC; Start 03/13/25 at 18:00; Stop 04/12/25 at 17:59 Glycopyrrolate 0.2 mg Q4HPRN IVP; Start 03/13/25 at 18:00; Stop 04/12/25 at 17:59 Pharmacy Profile Note ATIVAN IV NOT AVAILA... Q30MIN MISC; Start 03/13/25 at 18:30; Stop 03/13/25 at 21:06; Status DC Diazepam 5 mg Q4H PRN IV Last administered on 03/14/25at 05:16; Start 03/13/25 at 21:15; Stop 03/20/25 at 21:14 Assessment/Plan ASSESSMENT: THIS IS A 54 YR OLD WOMAN WITH HISTORY OF Metastatic Uterine / Cervical Cancer Lung and Intraperitoneal and Peritoneal Carcinomatosis Hypertension Diabetes II Bipolar D/O SHE PRESENTED WITH FAILURE TO THRIVE DUE TO METASTATIC UTERINE / CERVICAL CANCER ADMITTED INTO INPATIENT HOSPICE WITH [facility] PLAN: CONTINUE TERMINAL COMFORT MEASURES CONT ANALGESICS AND ANTI EMETICS AND ADJUST NEEDED CONT ANTI ANXIOLYTICS PRN AND ADJUST NEEDED GLYCOPYRROLATE PRN SECRETIONS AND ADJUST NEEDED FAMILY AT BEDSIDE AND IN AGREEMENT WITH CURRENT PLAN OF CARE NO QUESTIONS AT THIS TIME TEENA EATON MD Mar 14, 2025 14:39
--- NOTE | 2025-03-14 14:57 | NUR ---
MPOA SW met with pt's common law . waning info on MPOA. Informed her that pt is not appropriate to to sign documents. Explained that only pt can sign her MPOA. sates they have been together 20yrs but not legally . has concerns p's brother may give her () problems. Sw provided emotional support. Plan B is that Claire will work on placement at [facility] tomorrow.
[2025-03-14 19:40] VITALS: O2SAT 95
[2025-03-14 20:03] VITALS: PULSE 98; RESP 14
[2025-03-14 20:09] VITALS: BP 144/64; PULSE 112; RESP 18; TEMP 98.6
[2025-03-15 07:27] VITALS: PULSE 110; RESP 16
[2025-03-15 08:48] VITALS: O2SAT 95
[2025-03-15 11:00] VITALS: BP 120/54; PULSE 97; RESP 18; TEMP 98.2
[2025-03-15 19:00] VITALS: BP 113/50; PULSE 98; RESP 18; TEMP 98
[2025-03-15 20:00] VITALS: O2SAT 96
--- NOTE | 2025-03-15 23:34 | PN ---
Subjective Review of Systems PROGRESS NOTE Date of Visit: Mar 15, 2025 Time of Visit: 23:32 Events since last encounter LETHARGIC IN BED Subjective POOR HISTORIAN, FAMILY AT BEDSIDE General: No Fever, No Chills, No Night Sweats, No Fatigue, No Malaise, No Appetite, No Other HEENT: No Head Aches, No Visual Changes, No Eye Pain, No Ear Pain, No D ysphasia, No Sinus Congestion, No Post Nasal Drip, No Sore Throat, No Other Pulmonary: No Dyspnea, No Cough, No Pleuritic Chest Pain, No Other Cardiovascular: No: Chest Pain, Palpitations, Orthopnea, Paroxysmal Noc. Dyspnea, Edema, Lt Headedness, Other Gastrointestinal: No: Nausea, Vomiting, Abdominal Pain, Diarrhea, Constipation, Melena, Hematochezia, Other Genitourinary: No Dysuria, No Frequency, No Incontinence, No Hematuria, No Retention, No Other Musculoskeletal: No: other, neck pain, shoulder pain, arm pain, back pain, hand pain, leg pain, foot pain Skin: No Urticaria, No Rash, No Other Neurological: No: Weakness, Numbness, Incoordination, Change in speech, Confusion, Seizures, Other Objective Vitals and I/O Vital Sign (Last 24 Hours) 03/15/25 03/15/25 03/15/25 08:48 11:00 19:00 Temp 98.1 Pulse 98 Resp 18 B/P (MAP) 113/50 Pulse Ox 96 O2 Delivery Room Air O2 Flow Rate 5.0 FiO2 40 Intake & Output (last 24hrs) 03/14/25 03/14/25 03/15/25 15:00 23:00 07:00 Output Total 200 ml Balance -200 ml General: Other (SEDATED) HEENT: Atraumatic Neck: Supple, No JVD Lungs: Other (DISTANT BS BILATERALLY) Heart: Regular rate, Regular rhythm Abdomen: Soft Extremities: No edema Neuro: Normal tone Psych/Mental Status: Other (MINIMALLY RESPONSIVE) Results RADIOLOGY: [] EKG: [] Medications Current Medications Hydromorphone HCl 1 mg Q1HR PRN IVP Last administered on 03/15/25at 23:27; Start 03/13/25 at 18:00; Stop 03/18/25 at 17:59 Lorazepam 1 mg Q1H PRN IVP; Start 03/13/25 at 18:00; Stop 03/20/25 at 17:59; Status Cancel Ondansetron HCl 4 mg Q6H PRN IVP; Start 03/13/25 at 18:00; Stop 04/12/25 at 17:59 Acetaminophen 650 mg Q4HPRN PRN RC; Start 03/13/25 at 18:00; Stop 04/12/25 at 17:59 Bisacodyl 10 mg DAILY PRN RC; Start 03/13/25 at 18:00; Stop 04/12/25 at 17:59 Glycopyrrolate 0.2 mg Q4HPRN IVP; Start 03/13/25 at 18:00; Stop 04/12/25 at 17:59 Pharmacy Profile Note ATIVAN IV NOT AVAILA... Q30MIN MISC; Start 03/13/25 at 18:30; Stop 03/13/25 at 21:06; Status DC Diazepam 5 mg Q4H PRN IV Last administered on 03/15/25at 13:44; Start 03/13/25 at 21:15; Stop 03/20/25 at 21:14 Assessment/Plan ASSESSMENT: THIS IS A 54 YR OLD WOMAN WITH HISTORY OF Metastatic Uterine / Cervical Cancer Lung and Intraperitoneal and Peritoneal Carcinomatosis Hypertension Diabetes II Bipolar D/O SHE PRESENTED WITH FAILURE TO THRIVE DUE TO METASTATIC UTERINE / CERVICAL CANCER ADMITTED INTO INPATIENT HOSPICE WITH [facility] PLAN: CONTINUE TERMINAL COMFORT MEASURES CONT ANALGESICS AND ANTI EMETICS AND ADJUST NEEDED CONT ANTI ANXIOLYTICS PRN AND ADJUST NEEDED CONTINUES TO NEED IV MEDICATIONS Q 2 HRS GLYCOPYRROLATE PRN SECRETIONS AND ADJUST NEEDED FAMILY AT BEDSIDE AND IN AGREEMENT WITH CURRENT PLAN OF CARE TEENA EATON MD Mar 15, 2025 23:34
[2025-03-16 08:00] VITALS: BP 114/57; PULSE 106; RESP 17; TEMP 98.8
[2025-03-16 11:14] VITALS: PULSE 104; RESP 16
[2025-03-16] MEDS: GLYCOPYRROLATE 0.2 MG/ML 5 ML VIAL IVP PRN (13:54)
[2025-03-16 19:12] VITALS: PULSE 114; RESP 20
[2025-03-16 20:06] VITALS: BP 94/52; PULSE 102; RESP 17; TEMP 99
--- NOTE | 2025-03-16 22:05 | PN ---
Subjective Review of Systems PROGRESS NOTE Date of Visit: Mar 16, 2025 Time of Visit: 22:05 Events since last encounter lethargic Subjective POOR HISTORIAN, FAMILY AT BEDSIDE General: No Fever, No Chills, No Night Sweats, No Fatigue, No Malaise, No Appetite, No Other HEENT: No Head Aches, No Visual Changes, No Eye Pain, No Ear Pain, No Dysphas ia, No Sinus Congestion, No Post Nasal Drip, No Sore Throat, No Other Pulmonary: No Dyspnea, No Cough, No Pleuritic Chest Pain, No Other Cardiovascular: No: Chest Pain, Palpitations, Orthopnea, Paroxysmal Noc. Dy spnea, Edema, Lt Headedness, Other Gastrointestinal: No: Nausea, Vomiting, Abdominal Pain, Diarrhea, Constipation, Melena, Hematochezia, Other Genitourinary: No Dysuria, No Frequency, No Incontinence, No Hematuria, No Retention, No Other Musculoskeletal: No: other, neck pain, shoulder pain, arm pain, back pain, hand pain, leg pain, foot pain Skin: No Urticaria, No Rash, No Other Neurological: No: Weakness, Numbness, Incoordination, Change in speech, Confusion, Seizures, Other Objective Vitals and I/O Vital Sign (Last 24 Hours) 03/16/25 03/16/25 20:06 20:59 Temp 99.0 Pulse 102 Resp 17 B/P (MAP) 94/52 Pulse Ox 94 O2 Delivery Nasal Cannula* O2 Flow Rate 4 FiO2 36 Intake & Output (last 24hrs) 03/15/25 03/15/25 03/16/25 15:00 23:00 07:00 Output Total 300 ml 250 ml 300 ml Balance -300 ml -250 ml -300 ml General: Other (SEDATED) HEENT: Atraumatic Neck: Supple, No JVD Lungs: Other (DISTANT BS BILATERALLY) Heart: Regular rate, Regular rhythm Abdomen: Soft Extremities: No edema Neuro: Normal tone Psych/Mental Status: Other (MINIMALLY RESPONSIVE) Results RADIOLOGY: [] EKG: [] Medications Current Medications Hydromorphone HCl 1 mg Q1HR PRN IVP Last administered on 03/16/25at 17:17; Start 03/13/25 at 18:00; Stop 03/18/25 at 17:59 Lorazepam 1 mg Q1H PRN IVP; Start 03/13/25 at 18:00; Stop 03/20/25 at 17:59; Status Cancel Ondansetron HCl 4 mg Q6H PRN IVP; Start 03/13/25 at 18:00; Stop 04/12/25 at 17:59 Acetaminophen 650 mg Q4HPRN PRN RC; Start 03/13/25 at 18:00; Stop 04/12/25 at 17:59 Bisacodyl 10 mg DAILY PRN RC; Start 03/13/25 at 18:00; Stop 04/12/25 at 17:59 Glycopyrrolate 0.2 mg Q4HPRN IVP; Start 03/13/25 at 18:00; Stop 03/16/25 at 13:33; Status DC Pharmacy Profile Note [facility] IV NOT AVAILA... Q30MIN MISC; Start 03/13/25 at 18:30; Stop 03/13/25 at 21:06; Status DC Diazepam 5 mg Q4H PRN IV Last administered on 03/16/25at 14:02; Start 03/13/25 at 21:15; Stop 03/20/25 at 21:14 Glycopyrrolate 0.2 mg Q4H PRN IVP Last administered on 03/16/25at 13:54; Start 03/16/25 at 14:00; Stop 04/12/25 at 17:59 Assessment/Plan ASSESSMENT: THIS IS A 54 YR OLD WOMAN WITH HISTORY OF Metastatic Uterine / Cervical Cancer Lung and Intraperitoneal and Peritoneal Carcinomatosis Hypertension Diabetes II Bipolar D/O SHE PRESENTED WITH FAILURE TO THRIVE DUE TO METASTATIC UTERINE / CERVICAL CANCER ADMITTED INTO INPATIENT HOSPICE WITH [facility] PLAN: CONTINUE TERMINAL COMFORT MEASURES REQUIRING IV ANALGESICS AND ANTI ANXIOLYTICS CONT ANTI EMETICS AND ADJUST NEEDED CONTINUE TO ADJUST MEDS NEEDED GLYCOPYRROLATE PRN SECRETIONS AND ADJUST NEEDED FAMILY AT BEDSIDE AND IN AGREEMENT WITH CURRENT PLAN OF CARE TEENA EATON MD Mar 16, 2025 22:05
[2025-03-17 07:00] VITALS: PULSE 100; RESP 16
[2025-03-17 08:00] VITALS: BP 138/62; PULSE 112; RESP 12; TEMP 97.9; O2SAT 94
--- NOTE | 2025-03-17 13:00 | NUR ---
FAMILY REQUEST Approached by several family members in hallway with request. Family expressed that patient's son is in a [facility] somewhere. They are wanting approval for him to come and visit his mother. Referred family to Charge Nurse/Case Mangement/ Picker/Puller.
--- NOTE | 2025-03-17 13:01 | NUR ---
PATIENT AND DAUGHTER REQUESTING DISCHARGE Patient is status post transfusion of 2 units of PRBCs administered in ER for hemoglobin level of 5.4. Hemoglobin rechecked this morning = 7.1. New orders received to transfuse 1 unit. Daughter and patient requesting discharge and are refusing transfusion. Physician notified. Pending response and decision. Daughter states that the patient must return to the facility as soon as possible because she will soon be gone longer than 24 hours from the facility and they will have to resubmit for authorization and she does not want to have to go through all of this again. She also stated that this condition is not new to her mother, she was just here 3 months ago and they are not wanting to have another bill for thousands of dollars to be told what they already know. Addendum: 03/18/25 at 0817 by ALEX VAZQUEZ RN RN INCORRECT CHART. PLEASE DISREGARD
--- NOTE | 2025-03-17 16:57 | PN ---
Subjective Review of Systems PROGRESS NOTE Date of Visit: Mar 17, 2025 Time of Visit: 16:56 Events since last encounter LETHARGIC Subjective POOR HISTORIAN, FAMILY AT BEDSIDE General: No Fever, No Chills, No Night Sweats, No Fatigue, No Malaise, No Appetite, No Other HEENT: No Head Aches, No Visual Changes, No Eye Pain, No Ear Pain, No Dysphas ia, No Sinus Congestion, No Post Nasal Drip, No Sore Throat, No Other Pulmonary: No Dyspnea, No Cough, No Pleuritic Chest Pain, No Other Cardiovascular: No: Chest Pain, Palpitations, Orthopnea, Paroxysmal Noc. Dy spnea, Edema, Lt Headedness, Other Gastrointestinal: No: Nausea, Vomiting, Abdominal Pain, Diarrhea, Constipation, Melena, Hematochezia, Other Genitourinary: No Dysuria, No Frequency, No Incontinence, No Hematuria, No Retention, No Other Musculoskeletal: No: other, neck pain, shoulder pain, arm pain, back pain, hand pain, leg pain, foot pain Skin: No Urticaria, No Rash, No Other Neurological: No: Weakness, Numbness, Incoordination, Change in speech, Confusion, Seizures, Other Objective Vitals and I/O Vital Sign (Last 24 Hours) 03/17/25 08:00 Temp 97.9 Pulse 112 Resp 12 B/P (MAP) 138/62 Pulse Ox 94 O2 Delivery Nasal Cannula O2 Flow Rate 4.0 FiO2 32 Intake & Output (last 24hrs) 03/16/25 03/16/25 03/17/25 15:00 23:00 07:00 Output Total 400 ml Balance -400 ml General: Other (SEDATED) HEENT: Atraumatic Neck: Supple, No JVD Lungs: Other (DISTANT BS BILATERALLY) Heart: Regular rate, Regular rhythm Abdomen: Soft Extremities: No edema Neuro: Normal tone Psych/Mental Status: Other (MINIMALLY RESPONSIVE) Results RADIOLOGY: [] EKG: [] Medications Current Medications Hydromorphone HCl 1 mg Q1HR PRN IVP Last administered on 03/17/25at 16:36; Start 03/13/25 at 18:00; Stop 03/18/25 at 17:59 Lorazepam 1 mg Q1H PRN IVP; Start 03/13/25 at 18:00; Stop 03/20/25 at 17:59; Status Cancel Ondansetron HCl 4 mg Q6H PRN IVP; Start 03/13/25 at 18:00; Stop 04/12/25 at 17:59 Acetaminophen 650 mg Q4HPRN PRN RC; Start 03/13/25 at 18:00; Stop 04/12/25 at 17:59 Bisacodyl 10 mg DAILY PRN RC; Start 03/13/25 at 18:00; Stop 04/12/25 at 17:59 Glycopyrrolate 0.2 mg Q4HPRN IVP; Start 03/13/25 at 18:00; Stop 03/16/25 at 13:33; Status DC Pharmacy Profile Note [facility] IV NOT AVAILA... 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
[2025-03-17 20:00] VITALS: BP 127/67; PULSE 127; RESP 14; TEMP 98.2
[2025-03-17 20:51] VITALS: PULSE 124; RESP 19
[2025-03-18] VITALS (7 sets, daily range): BP systolic 105–147; BP diastolic 54–79; PULSE 112–135; RESP 12–22; TEMP 98.9–99.1; O2SAT 94–96
--- NOTE | 2025-03-18 13:24 | PN ---
Subjective Review of Systems PROGRESS NOTE Date of Visit: Mar 18, 2025 Time of Visit: 13:23 Events since last encounter LETHARGIC Subjective POOR HISTORIAN, FAMILY AT BEDSIDE General: No Fever, No Chills, No Night Sweats, No Fatigue, No Malaise, No Appetite, No Other HEENT: No Head Aches, No Visual Changes, No Eye Pain, No Ear Pain, No Dysphas ia, No Sinus Congestion, No Post Nasal Drip, No Sore Throat, No Other Pulmonary: No Dyspnea, No Cough, No Pleuritic Chest Pain, No Other Cardiovascular: No: Chest Pain, Palpitations, Orthopnea, Paroxysmal Noc. Dy spnea, Edema, Lt Headedness, Other Gastrointestinal: No: Nausea, Vomiting, Abdominal Pain, Diarrhea, Constipation, Melena, Hematochezia, Other Genitourinary: No Dysuria, No Frequency, No Incontinence, No Hematuria, No Retention, No Other Musculoskeletal: No: other, neck pain, shoulder pain, arm pain, back pain, hand pain, leg pain, foot pain Skin: No Urticaria, No Rash, No Other Neurological: No: Weakness, Numbness, Incoordination, Change in speech, Confusion, Seizures, Other Objective Vitals and I/O Vital Sign (Last 24 Hours) 03/18/25 03/18/25 07:45 08:00 Temp 99.1 Pulse 112 Resp 12 B/P (MAP) 105/54 Pulse Ox 94 O2 Delivery Nasal Cannula* O2 Flow Rate 4 FiO2 36 Intake & Output (last 24hrs) 03/17/25 03/17/25 03/18/25 15:00 23:00 07:00 Output Total 100 ml 150 ml Balance -100 ml -150 ml General: Other (SEDATED) HEENT: Atraumatic Neck: Supple, No JVD Lungs: Other (DISTANT BS BILATERALLY) Heart: Regular rate, Regular rhythm Abdomen: Soft Extremities: No edema Neuro: Normal tone Psych/Mental Status: Other (MINIMALLY RESPONSIVE) Results RADIOLOGY: [] EKG: [] Medications Current Medications Hydromorphone HCl 1 mg Q1HR PRN IVP Last administered on 03/18/25at 11:34; Start 03/13/25 at 18:00; Stop 03/18/25 at 17:59 Lorazepam 1 mg Q1H PRN IVP; Start 03/13/25 at 18:00; Stop 03/20/25 at 17:59; Status Cancel Ondansetron HCl 4 mg Q6H PRN IVP; Start 03/13/25 at 18:00; Stop 04/12/25 at 17:59 Acetaminophen 650 mg Q4HPRN PRN RC; Start 03/13/25 at 18:00; Stop 04/12/25 at 17:59 Bisacodyl 10 mg DAILY PRN RC; Start 03/13/25 at 18:00; Stop 04/12/25 at 17:59 Glycopyrrolate 0.2 mg Q4HPRN IVP; Start 03/13/25 at 18:00; Stop 03/16/25 at 13:33; Status DC Pharmacy Profile Note [facility] IV NOT AVAILA... 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
--- NOTE | 2025-03-18 19:55 | NUR ---
PASCUAL CATHETER TO REMAIN IN PLACE Spouse expressed to nursing that she does not want the Pascual Catheter to be removed. She does not want any more procedures, or potential cause for pain at this time. Nursing will continue to provide incontinent checks and perform pericare as needed.
[2025-03-18] MEDS: hydroMORPHone 1 MG INJ IVP PRN (20:16)
[2025-03-19 08:00] VITALS: BP 149/59; PULSE 107; RESP 23; TEMP 98.4; O2SAT 96
--- NOTE | 2025-03-19 10:06 | PN ---
Subjective Review of Systems PROGRESS NOTE Date of Visit: Mar 19, 2025 Time of Visit: 10:05 Subjective POOR HISTORIAN, FAMILY AT BEDSIDE General: No Fever, No Chills, No Night Sweats, No Fatigue, No Malaise, No Appetite, No Other HEENT: No Head Aches, No Visual Changes, No Eye Pain, No Ear Pain, No Dysphasia, No Sinus Congestion, No Post Nasal Drip, No Sore Throat, No Other Pulmonary: No Dyspnea, No Cough, No Pleuritic Chest Pain, No Other Cardiovascular: No: Chest Pain, Palpitations, Orthopnea, Paroxysmal Noc. Dyspnea, Edema, Lt Headedness, Other Gastrointestinal: No: Nausea, Vomiting, Abdominal Pain, Diarrhea, Constipation, Melena, Hematochezia, Other Genitourinary: No Dysuria, No Frequency, No Incontinence, No Hematuria, No Retention, No Other Musculoskeletal: No: other, neck pain, shoulder pain, arm pain, back pain, hand pain, leg pain, foot pain Skin: No Urticaria, No Rash, No Other Neurological: No: Weakness, Numbness, Incoordination, Change in speech, Confusi on, Seizures, Other Objective Vitals and I/O Vital Sign (Last 24 Hours) 03/19/25 08:00 Temp 98.4 Pulse 107 Resp 23 B/P (MAP) 149/59 Pulse Ox 96 O2 Delivery Nasal Cannula O2 Flow Rate 4.0 FiO2 32 Intake & Output (last 24hrs) 03/18/25 03/18/25 03/19/25 15:00 23:00 07:00 Output Total 100 ml Balance -100 ml General: Other (SEDATED) HEENT: Atraumatic Neck: Supple, No JVD Lungs: Other (DISTANT BS BILATERALLY) Heart: Regular rate, Regular rhythm Abdomen: Soft Extremities: No edema Neuro: Normal tone Psych/Mental Status: Other (MINIMALLY RESPONSIVE) Results RADIOLOGY: [] EKG: [] Medications Current Medications Hydromorphone HCl 1 mg Q1HR PRN IVP Last administered on 03/18/25at 15:59; Start 03/13/25 at 18:00; Stop 03/18/25 at 17:59; Status DC Lorazepam 1 mg Q1H PRN IVP; Start 03/13/25 at 18:00; Stop 03/20/25 at 17:59; Status Cancel Ondansetron HCl 4 mg Q6H PRN IVP; Start 03/13/25 at 18:00; Stop 04/12/25 at 17:59 Acetaminophen 650 mg Q4HPRN PRN RC; Start 03/13/25 at 18:00; Stop 04/12/25 at 17:59 Bisacodyl 10 mg DAILY PRN RC; Start 03/13/25 at 18:00; Stop 04/12/25 at 17:59 Glycopyrrolate 0.2 mg Q4HPRN IVP; Start 03/13/25 at 18:00; Stop 03/16/25 at 13:33; Status DC Pharmacy Profile Note [facility] IV NOT AVAILA... 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
[2025-03-19] MEDS: GLYCOPYRROLATE 0.2 MG/ML 5 ML VIAL IVP SCH (20:50)
[2025-03-20] VITALS: BP 116/60; PULSE 136; RESP 22; TEMP 100.7
[2025-03-20 02:13] VITALS: PULSE 130; RESP 22
[2025-03-20 08:00] VITALS: BP 147/88; PULSE 127; RESP 18; TEMP 96.5
[2025-03-20 12:00] VITALS: BP 108/58; PULSE 131; RESP 18; TEMP 97.5
--- NOTE | 2025-03-20 14:13 | PN ---
Subjective Review of Systems PROGRESS NOTE Date of Visit: Mar 20, 2025 Time of Visit: 14:13 Events since last encounter PATIENT LETHARGIC Subjective POOR HISTORIAN, FAMILY AT BEDSIDE General: No Fever, No Chills, No Night Sweats, No Fatigue, No Malaise, No Appetite, No Other HEENT: No Head Aches, No Visual Changes, No Eye Pain, No Ear Pain, No Dysphasia, No Sinus Congestion, No Post Nasal Drip, No Sore Throat, No Other Pulmonary: No Dyspnea, No Cough, No Pleuritic Chest Pain, No Other Cardiovascular: No: Chest Pain, Palpitations, Orthopnea, Paroxysmal Noc. Dyspnea, Edema, Lt Headedness, Other Gastrointestinal: No: Nausea, Vomiting, Abdominal Pain, Diarrhea, Constipation, Melena, Hematochezia, Other Genitourinary: No Dysuria, No Frequency, No Incontinence, No Hematuria, No Retention, No Other Musculoskeletal: No: other, neck pain, shoulder pain, arm pain, back pain, hand pain, leg pain, foot pain Skin: No Urticaria, No Rash, No Other Neurological: No: Weakness, Numbness, Incoordination, Change in speech, Confusion, Seizures, Other Objective Vitals and I/O Vital Sign (Last 24 Hours) 03/20/25 03/20/25 02:13 12:00 Temp 97.5 Pulse 131 Resp 18 B/P (MAP) 108/58 Pulse Ox 97 O2 Delivery Nasal Cannula O2 Flow Rate 4.0 FiO2 36 General: Other (SEDATED) HEENT: Atraumatic Neck: Supple, No JVD Lungs: Other (DISTANT BS BILATERALLY) Heart: Regular rate, Regular rhythm Abdomen: Soft Extremities: No edema Neuro: Normal tone Psych/Mental Status: Other (MINIMALLY RESPONSIVE) Results RADIOLOGY: [] EKG: [] Medications Current Medications Hydromorphone HCl 1 mg Q1HR PRN IVP Last administered on 03/18/25at 15:59; Start 03/13/25 at 18:00; Stop 03/18/25 at 17:59; Status DC Lorazepam 1 mg Q1H PRN IVP; Start 03/13/25 at 18:00; Stop 03/20/25 at 17:59; Status Cancel Ondansetron HCl 4 mg Q6H PRN IVP; Start 03/13/25 at 18:00; Stop 04/12/25 at 17:59 Acetaminophen 650 mg Q4HPRN PRN RC; Start 03/13/25 at 18:00; Stop 04/12/25 at 17:59 Bisacodyl 10 mg DAILY PRN RC; Start 03/13/25 at 18:00; Stop 04/12/25 at 17:59 Glycopyrrolate 0.2 mg Q4HPRN IVP; Start 03/13/25 at 18:00; Stop 03/16/25 at 13:33; Status DC Pharmacy Profile Note [facility] IV NOT AVAILA... Q30MIN MISC; Start 03/13/25 at 18:30; Stop 03/13/25 at 21:06; Status DC Diazepam 5 mg Q4H PRN IV Last administered on 03/20/25at 12:20; Start 03/13/25 at 21:15; Stop 03/20/25 at 21:14 Glycopyrrolate 0.2 mg Q4H PRN IVP Last administered on 03/16/25at 13:54; Start 03/16/25 at 14:00; Stop 03/19/25 at 20:59; Status DC Hydromorphone HCl 1 mg Q1HR PRN IVP Last administered on 03/20/25at 12:12; Start 03/18/25 at 20:00; Stop 03/23/25 at 19:59 Glycopyrrolate 0.4 mg Q12H9 IVP Last administered on 03/20/25at 08:14; Start 03/19/25 at 21:00; Stop 04/18/25 at 20:59 Assessment/Plan ASSESSMENT: THIS IS A 54 YR OLD WOMAN WITH HISTORY OF Metastatic Uterine / 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
[2025-03-20 16:00] VITALS: BP 115/76; PULSE 129; RESP 18; TEMP 98.2
[2025-03-20 19:11] VITALS: PULSE 122; RESP 22
[2025-03-21] VITALS: BP 104/71; PULSE 132; RESP 22; TEMP 99.2
[2025-03-21 05:52] VITALS: O2SAT 92
[2025-03-21 06:41] VITALS: PULSE 133; RESP 20
--- NOTE | 2025-03-21 10:12 | PN ---
Subjective Review of Systems PROGRESS NOTE Date of Visit: Mar 21, 2025 Time of Visit: 10:12 Events since last encounter LETHARGIC Subjective POOR HISTORIAN, FAMILY AT BEDSIDE General: No Fever, No Chills, No Night Sweats, No Fatigue, No Malaise, No Appetite, No Other HEENT: No Head Aches, No Visual Changes, No Eye Pain, No Ear Pain, No Dysphas ia, No Sinus Congestion, No Post Nasal Drip, No Sore Throat, No Other Pulmonary: No Dyspnea, No Cough, No Pleuritic Chest Pain, No Other Cardiovascular: No: Chest Pain, Palpitations, Orthopnea, Paroxysmal Noc. Dy spnea, Edema, Lt Headedness, Other Gastrointestinal: No: Nausea, Vomiting, Abdominal Pain, Diarrhea, Constipation, Melena, Hematochezia, Other Genitourinary: No Dysuria, No Frequency, No Incontinence, No Hematuria, No Retention, No Other Musculoskeletal: No: other, neck pain, shoulder pain, arm pain, back pain, hand pain, leg pain, foot pain Skin: No Urticaria, No Rash, No Other Neurological: No: Weakness, Numbness, Incoordination, Change in speech, Confusion, Seizures, Other Objective Vitals and I/O Vital Sign (Last 24 Hours) 03/21/25 03/21/25 03/21/25 00:00 05:52 06:41 Temp 99.1 Pulse 133 Resp 20 B/P (MAP) 104/71 Pulse Ox 92 O2 Delivery Nasal Cannula* O2 Flow Rate 4.0 FiO2 36 Intake & Output (last 24hrs) 03/20/25 03/20/25 03/21/25 15:00 23:00 07:00 Intake Total 100 ml 0 ml Output Total 20 ml 200 ml Balance 80 ml -200 ml General: Other (SEDATED) HEENT: Atraumatic Neck: Supple, No JVD Lungs: Other (DISTANT BS BILATERALLY) Heart: Regular rate, Regular rhythm Abdomen: Soft Extremities: No edema Neuro: Normal tone Psych/Mental Status: Other (MINIMALLY RESPONSIVE) Results RADIOLOGY: [] EKG: [] Medications Current Medications Hydromorphone HCl 1 mg Q1HR PRN IVP Last administered on 03/18/25at 15:59; Start 03/13/25 at 18:00; Stop 03/18/25 at 17:59; Status DC Lorazepam 1 mg Q1H PRN IVP; Start 03/13/25 at 18:00; Stop 03/20/25 at 17:59; Status Cancel Ondansetron HCl 4 mg Q6H PRN IVP; Start 03/13/25 at 18:00; Stop 04/12/25 at 17:59 Acetaminophen 650 mg Q4HPRN PRN RC; Start 03/13/25 at 18:00; Stop 04/12/25 at 17:59 Bisacodyl 10 mg DAILY PRN RC; Start 03/13/25 at 18:00; Stop 04/12/25 at 17:59 Glycopyrrolate 0.2 mg Q4HPRN IVP; Start 03/13/25 at 18:00; Stop 03/16/25 at 13:33; Status DC Pharmacy Profile Note [facility] IV NOT AVAILA... Q30MIN MISC; Start 03/13/25 at 18:30; Stop 03/13/25 at 21:06; Status DC Diazepam 5 mg Q4H PRN IV Last administered on 03/20/25at 12:20; Start 03/13/25 at 21:15; Stop 03/20/25 at 21:14; Status DC Glycopyrrolate 0.2 mg Q4H PRN IVP Last administered on 03/16/25at 13:54; Start 03/16/25 at 14:00; Stop 03/19/25 at 20:59; Status DC Hydromorphone HCl 1 mg Q1HR PRN IVP Last administered on 03/21/25at 08:21; Start 03/18/25 at 20:00; Stop 03/23/25 at 19:59 Glycopyrrolate 0.4 mg Q12H9 IVP Last administered on 03/21/25at 08:21; Start 03/19/25 at 21:00; Stop 04/18/25 at 20:59 Assessment/Plan ASSESSMENT: THIS IS A 54 YR OLD WOMAN WITH HISTORY OF Metastatic Uterine / 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
[2025-03-21 11:03] VITALS: TEMP 100.1
[2025-03-21] MEDS: acetaMINOPHEN 650 MG SUPPOSITORY RC PRN (11:03)
[2025-03-21 11:29] VITALS: BP 96/50; PULSE 143; RESP 19; TEMP 100.1
[2025-03-21] MEDS: diazePAM 5 MG/ML 2 ML SYG IV PRN (11:40)
[2025-03-22] VITALS: BP 82/67; PULSE 125; RESP 22; TEMP 98.4
[2025-03-22 07:16] VITALS: PULSE 131; RESP 24
[2025-03-22 08:00] VITALS: O2SAT 92
[2025-03-22 08:19] VITALS: TEMP 99.1
[2025-03-22 11:33] VITALS: BP 69/39; PULSE 140; RESP 20; TEMP 99.7
--- NOTE | 2025-03-22 13:44 | NUR ---
TRISH reached out to Claire to discuss potential DC plan to a comfort home. Kayleigh stated that she will get update and call back with more information
[2025-03-22 19:02] VITALS: PULSE 140; RESP 28
--- NOTE | 2025-03-22 19:40 | NUR ---
Patient's family member male called the primary nurse Larry Tomlinson LVN to check on the patient after the pain medication was given to assess her. Larry went in the room to assess the patient's lungs, pupils, pulse, and he called extra gang supervisor, Francisco Valentine RN and nigel holley RN. They pronounced the patient at 19:40. The patient's Aline Coleman is at bedside. Larry called doctor Shannan Longoria to let her know at 2019. He called [facility] and spoke with Miracle Rosas with a reference number [id number]. The patient is not a candidate for organ donation due to sepsis. The patient's took patient's necklace home and signed the form. She is refusing an autopsy and also the patient will be cremated at [facility] in [place]. I let extra gang supervisor, Francisco Valentine know and he is aware.
--- NOTE | 2025-03-22 22:09 | DS ---
DISCHARGE SUMMARY Date of Visit: Mar 22, 2025 Time of Visit: 22:09 ADMISSION DATE: Mar 13, 2025 at 16:30 DISCHARGE DATE: Mar 22, 2025 ATTENDED PHYSICIAN: Teena Longoria MD DISCHARGE DIAGNOSIS: FAILURE TO THRIVE DUE TO METASTATIC UTERINE / CERVICAL CANCER Lung and Intraperitoneal and Peritoneal Carcinomatosis Hypertension Diabetes II Bipolar D/O MELTING FURNACE SKIMMER(S): NONE PROCEDURES: NONE RADIOLOGY: NONE HOSPITAL COURSE: THIS WAS A 54 YR OLD WOMAN WITH HX DM HTN AND BIPOLAR D/O WHO PRESENTED WITH A SUSPECTED STEMI AND FOUND TO HAVE DIFFUSE METASTATIC UTERINE / CERVICAL CANCER WITH LUNG AND INTRAPERITONEAL METASTASIS. SHE WAS TRANSITIONED TO COMFORT MEASURES WITH INPATIENT HOSPICE WITH [facility] WHERE SHE WAS KEPT COMFORTABLE UNTIL HER . CODE STATUS: DNR/DNI Home Meds No Active Prescriptions or Reported Meds TEENA LONGORIA MD Mar 22, 2025 22:09
== END 2025-03-22 19:40 | DRG 374 ==
LOC: 2BH 16:30 → 2DH 20:00 → 4DH 03-16 01:40
PROVIDERS: ADMIT Internal Medicine; ATTEND Internal Medicine
DX: C78.6 Secondary malignant neoplasm of retroperitoneum and peritoneum (principal); J96.90 Respiratory failure, unspecified, unspecified whether with hypoxia or hypercapnia; C78.02 Secondary malignant neoplasm of left lung; C78.01 Secondary malignant neoplasm of right lung; C53.9 Malignant neoplasm of cervix uteri, unspecified; E11.9 Type 2 diabetes mellitus without complications; Z66 Do not resuscitate; I10 Essential (primary) hypertension; R62.7 Adult failure to thrive; F31.9 Bipolar disorder, unspecified; W19.XXXA Unspecified fall, initial encounter; Y93.89 Activity, other specified; Y92.89 Other specified places as the place of occurrence of the external cause; Y99.8 Other external cause status; Z51.5 Encounter for palliative care
CPT/HCPCS: G0378; J1171; J3360; J3490